=== PATIENT | female | born 1955 | race Caucasian/White ===

== ENCOUNTER → 2016-11-02 | Outpatient (REF) | payer BC ==
[~2016-11-02] MED LIST: /PANT40TA PO; /WARF25TA PO; COUM1TAB17 PO; COUM7.5T PO; FURO40TA2 PO; FUROSIMIDE PO; HUMIRA; HYDROCODONE PO; MELO7.5T6 PO; NABU750T PO; OMEP20CA3 PO; PERCOCET PO; POLYOPD OU; ROPI1TAB PO; TYLE325T5 PO; VICO5TAB16 PO
[2016-11-02 13:03] LABS: FOLATE 15.6 NG/ML (>5.4)
== END ==
LOC: M LAB REF 11:57
PROVIDERS: ATTEND Internal Medicine
DX: R73.03 Prediabetes (principal)

== ENCOUNTER 2017-07-15 07:28 | Emergency (ER) | payer BC, OTHER ==
[~2017-07-15] VITALS: Ht 160 cm; Wt 110.0 kg
[~2017-07-15 07:28] MED LIST changes: -HUMIRA; +HUMIRA SQ; -MELO7.5T6 PO; +MELO7.5T7 PO
[2017-07-15] MEDS ORDERED: NS 1,000 ML IV SCH (08:14)
[2017-07-15] MEDS ORDERED: KETOROLAC 30 MG/ML VIAL (J1885) IV ONE (08:15)
[2017-07-15 08:45] LABS: BASO % 0.6 % (0.0-1.0); EOS # 0.2 10^3/uL (0.0-0.50); EOS % 3.4 % (0.0-3.0); IMMATURE GRANULOCYTE % 0.3 % (0-0); LYMPH # 2.8 10^3/uL (1.5-4.5); LYMPH % 42.3 % (24.0-44.0); MEAN CORPUSCULAR HEMOGLOBIN 26.6 pg (27.0-33.0); MEAN CORPUSCULAR HGB CONC 31.2 g/dl (32.0-36.5); MEAN CORPUSCULAR VOLUME 85.3 fl (80.0-96.0); MONO % 14.6 % (0.0-5.0); NEUTROPHILS # 2.5 10^3/uL (1.8-7.7); NEUTROPHILS % 38.8 % (36.0-66.0); PLATELET COUNT, AUTOMATED 190 10^3/uL (150-450); RED CELL DISTRIBUTION WIDTH 16.9 % (11.5-14.5); WHITE BLOOD COUNT 6.5 10^3/uL (4.0-10.0)
[2017-07-15 09:30] LABS: ALBUMIN 3.3 GM/DL (3.2-5.2); ALBUMIN/GLOBULIN RATIO 0.79 (1.00-1.93); ALKALINE PHOSPHATASE 178 U/L (45-117); ALT/SGPT 205 U/L (12-78); ANION GAP 7 MEQ/L (8-16); AST/SGOT 120 U/L (15-37); BILIRUBIN,DIRECT 0.2 MG/DL (0.0-0.2); BILIRUBIN,TOTAL 0.6 MG/DL (0.2-1.0); BLOOD UREA NITROGEN 12 MG/DL (7-18); CALCIUM LEVEL 8.9 MG/DL (8.8-10.2); CARBON DIOXIDE LEVEL 29 MEQ/L (21-32); CHLORIDE LEVEL 106 MEQ/L (98-107); CREATININE FOR GFR 0.69 MG/DL (0.55-1.02); GLOMERULAR FILTRATION RATE > 60.0 (>45); GLUCOSE, FASTING 107 MG/DL (80-110); POTASSIUM SERUM 3.7 MEQ/L (3.5-5.1); SODIUM LEVEL 142 MEQ/L (136-145); TOTAL PROTEIN 7.5 GM/DL (6.4-8.2)
--- NOTE | 2017-07-15 09:34 | REP ---
ABDOMINAL SERIES: Supine and erect views of the abdomen demonstrate no free air and no evidence for bowel obstruction. No dilated small bowel loops are seen. There are phleboliths in the pelvis. There are degenerative changes of the spine. An accompanying view of the chest demonstrates no acute infiltrate. Heart does not appear to be significantly enlarged. There is mild calcification of the thoracic aorta. IMPRESSION: Negative abdominal series. Signed by Dioni Monroy MD 07/18/2017 09:45 A
--- NOTE | 2017-07-15 12:25 | REP ---
RIGHT UPPER QUADRANT ULTRASOUND: Real-time sonographic evaluation of the right upper quadrant performed. Gallstones are seen in the gallbladder. There is a rounded hypoechoic area slightly greater than 4 cm in diameter which may represent tumofactive sludge versus an intraluminal mass. Otherwise there is no gallbladder wall thickening. There is no free fluid. There is no intrahepatic or extrahepatic biliary dilatation, common bile duct measuring 5 mm in diameter. Liver and pancreas demonstrate no gross mass. Pancreas is not optimally seen due to overlying bowel gas. Right kidney demonstrates no hydronephrosis or nephrolithiasis with normal size at 10.7 cm in length. The study is limited due to patient body habitus. IMPRESSION: Gallstones in the gallbladder. There also appear to be tumofactive sludge versus intraluminal mass within the gallbladder. No biliary dilatation or free fluid. Signed by Dioni Monroy MD 07/18/2017 09:49 A
--- NOTE | 2017-07-15 13:13 | REP ---
CT ABDOMEN AND PELVIS WITHOUT CONTRAST: CT abdomen and pelvis performed without oral or IV contrast. Sagittal and coronal reconstruction images are performed. The visualized lung bases demonstrate no infiltrate. The liver is grossly unremarkable. The gallbladder is moderately distended and contains gallstones. There appears to be mild surrounding edema suggesting cholecystitis. Spleen, adrenals, pancreas and kidneys appear grossly unremarkable. No renal or ureteral calculus is seen and there is no hydroureteronephrosis. There is no abdominal aortic aneurysm. There is no bowel wall thickening. There is no appendicitis. There is no free air or free fluid. There is no pelvic mass. IMPRESSION: Moderately distended gallbladder containing stones and mild surrounding edema suggesting cholecystitis. No other acute abnormality. Signed by Dioni Monroy MD 07/18/2017 09:50 A
[2017-07-15 13:41] VITALS: BP 150/70
[2017-07-15] MEDS ORDERED: NORCOTAB PO (13:44)
[2017-07-16] MEDS ORDERED: NORC1TAB4 PO (05:22)
[2017-07-16] MEDS ORDERED: FURO40TA2 PO (05:23)
[2017-07-16] MEDS ORDERED: HUMI40KI SC (05:27)
[2017-07-16] MEDS ORDERED: ROPI0.5T PO (05:27)
== END 2017-07-15 14:03 | disposition home or self-care (01) ==
LOC: M ED 07:28
DX: K80.51 Calculus of bile duct without cholangitis or cholecystitis with obstruction (principal); J45.909 Unspecified asthma, uncomplicated; Z98.84 Bariatric surgery status; Z79.899 Other long term (current) drug therapy; Z88.2 Allergy status to sulfonamides; Z88.8 Allergy status to other drugs, medicaments and biological substances; Z88.1 Allergy status to other antibiotic agents
CPT/HCPCS: 74022; 74176; 76705; 80048; 80076; 81001; 83690; 85025; 93041; 96374; 99284; J1885

== ENCOUNTER 2017-07-15 23:42 | Inpatient (IN) | payer OTHER ==
[~2017-07-15] VITALS: Ht 160 cm; Wt 107.7 kg
[~2017-07-15 23:42] MED LIST changes: +NORCOTAB PO
[2017-07-16] VITALS (9 sets, daily range): BP systolic 100–138; BP diastolic 61–92
[2017-07-16] MEDS ORDERED: NS 500 ML IV ONE (05:15)
[2017-07-16] MEDS ORDERED: MORPHINE 4 MG/ML 1ML SYRINGE IV ONE (05:15)
[2017-07-16] MEDS ORDERED: NORC1TAB4 PO (05:22)
[2017-07-16] MEDS ORDERED: FURO40TA2 PO (05:23)
[2017-07-16] MEDS ORDERED: HUMI40KI SC (05:27)
[2017-07-16] MEDS ORDERED: ROPI0.5T PO (05:27)
[2017-07-16 06:05] LABS: BASO % 0.2 % (0.0-1.0); EOS % 0.1 % (0.0-3.0); IMMATURE GRANULOCYTE % 0.4 % (0-0); LYMPH # 1.7 10^3/uL (1.5-4.5); LYMPH % 13.6 % (24.0-44.0); MEAN CORPUSCULAR HEMOGLOBIN 26.9 pg (27.0-33.0); MEAN CORPUSCULAR HGB CONC 31.5 g/dl (32.0-36.5); MEAN CORPUSCULAR VOLUME 85.5 fl (80.0-96.0); MONO # 1.3 10^3/uL (0.0-0.8); MONO % 11.1 % (0.0-5.0); NEUTROPHILS % 74.6 % (36.0-66.0); PLATELET COUNT, AUTOMATED 192 10^3/uL (150-450); RED CELL DISTRIBUTION WIDTH 16.8 % (11.5-14.5); WHITE BLOOD COUNT 12.1 10^3/uL (4.0-10.0)
[2017-07-16] MEDS ORDERED: METOCLOPRAMIDE INJ 10MG/2ML VIAL (J2765) IV ONE (06:15)
[2017-07-16 06:42] LABS: ALBUMIN 3.5 GM/DL (3.2-5.2); ALBUMIN/GLOBULIN RATIO 0.95 (1.00-1.93); ALKALINE PHOSPHATASE 165 U/L (45-117); ALT/SGPT 152 U/L (12-78); ANION GAP 8 MEQ/L (8-16); AST/SGOT 58 U/L (15-37); BILIRUBIN,DIRECT 0.3 MG/DL (0.0-0.2); BILIRUBIN,TOTAL 0.7 MG/DL (0.2-1.0); BLOOD UREA NITROGEN 13 MG/DL (7-18); CALCIUM LEVEL 8.7 MG/DL (8.8-10.2); CARBON DIOXIDE LEVEL 28 MEQ/L (21-32); CHLORIDE LEVEL 103 MEQ/L (98-107); CREATININE FOR GFR 0.76 MG/DL (0.55-1.02); GLOMERULAR FILTRATION RATE > 60.0 (>45); GLUCOSE, FASTING 135 MG/DL (80-110); POTASSIUM SERUM 3.8 MEQ/L (3.5-5.1); SODIUM LEVEL 139 MEQ/L (136-145); TOTAL PROTEIN 7.2 GM/DL (6.4-8.2)
[2017-07-16] MEDS ORDERED: ZOSYN 3.375 GM VIAL (J2543) As Ordered ONE (09:11)
[2017-07-16] MEDS ORDERED: LIDOCAINE 2% INJ 100 MG/5 ML SDV (FOR ANES.) As Ordered ONE (09:13)
[2017-07-16] MEDS ORDERED: PROPOFOL 200 MG/20 ML VIAL As Ordered ONE (09:13)
[2017-07-16] MEDS ORDERED: ROCURONIUM BROMIDE 50 MG/5 ML VIAL/SYRINGE As Ordered ONE (09:13)
[2017-07-16] MEDS ORDERED: fentaNYL 250 MCG/5 ML INJECTION (J3010) As Ordered ONE (09:14)
[2017-07-16] MEDS ORDERED: MIDAZOLAM INJ 2 MG/2 ML VIAL (J2250) As Ordered ONE (09:14)
[2017-07-16] MEDS ORDERED: ACETAMINOPHEN TAB 650MG DOSE (2X325MG) PO PRN (09:30)
[2017-07-16] MEDS ORDERED: NABUMETONE 500 MG TAB PO PRN (09:30)
[2017-07-16] MEDS ORDERED: POLYVINYL ALCOHOL OPHTH SOLN 15 ML(LIQUITEARS) OU PRN (09:30)
[2017-07-16] MEDS ORDERED: MORPHINE 2 MG/ML 1ML SYRINGE IV PRN (09:30)
[2017-07-16] MEDS ORDERED: ONDANSETRON 4MG/2ML VIAL (J2405) IV PRN ×2 (09:30→11:45)
[2017-07-16] MEDS ORDERED: BUPIVACAINE/EPIN 0.25% 30 ML VIAL As Ordered ONE (09:43)
[2017-07-16] MEDS ORDERED: PHENYLephrine HCL 500 MCG/5 ML (100MCG/ML) SYRINGE (J2370) As Ordered ONE (09:52)
[2017-07-16] MEDS ORDERED: NEOSTIGMINE 10 MG/10 ML VIAL (J2710) As Ordered ONE (10:53)
[2017-07-16] MEDS ORDERED: GLYCOPYRROLATE INJ 0.2 MG/ML 2 ML VIAL As Ordered ONE (10:53)
[2017-07-16] MEDS ORDERED: ONDANSETRON 4MG/2ML VIAL (J2405) As Ordered ONE (10:53)
--- NOTE | 2017-07-16 11:26 | HPE ---
DATE OF ADMISSION: 07/16/2017 CHIEF COMPLAINT: Right upper quadrant pain. HISTORY OF PRESENT ILLNESS: The patient is a 61-year female who presents with a history of intermittent right upper quadrant pain for the past few weeks. Yesterday, she came into emergency room with the same symptoms because they have been getting progressively worse for the last 48 hours. She was diagnosed with acute cholecystitis in the emergency room (ER). However, since her white count was normal and no fevers, she was discharged home to follow up me in the office. Overnight, the pain got progressively worse, pain medications were not controlling it, so she came back into the emergency room early this morning and now her white count is rising up and she is also having fevers up to 101.7. After having the fevers, I was called to evaluate for admission. Currently, she denies any fevers or nausea or vomiting. She is having chills. Pain has been persistent in the right upper quadrant, radiating around to the right back and also going up to the right shoulder. No other changes in bowel movements. She has had previous abdominal surgeries, including bypass and laparoscopy through [facility]. No other abdominal procedures. No recent trauma and no problems with gallbladder in the past. ALLERGIES: CEPHALOSPORINS, DICLOXACILLIN, ERYTHROMYCIN, QUINOLONES, SULFA DRUGS. HOME MEDICATIONS: Please see medical record. MEDICAL HISTORY: Rheumatoid arthritis. Restless leg syndrome. PAST SURGICAL HISTORY Bilateral knee replacements. Laparoscopic gastric bypass. Laparoscopic gynecologic (WOOL [facility]PLER) procedure. SOCIAL HISTORY: Denies drug, alcohol, tobacco abuse. FAMILY HISTORY: Noncontributory. REVIEW OF SYSTEMS: Pertinent positives and negatives as stated in the history of the present illness. PHYSICAL EXAMINATION General: Alert and oriented times three. No acute stress. Vital Signs: Temperature 101.7, pulse 86, respirations 18, blood pressure 144/66, pulse oximetry 96% on room air. HEENT: Pupils equal, round, react to light and accommodation. Heart: S1, S2, regular rate and rhythm. Lungs: Clear to auscultation bilaterally. Abdomen: Soft, tender on palpation right upper quadrant extending around the right side. Extremities: No clubbing, cyanosis or edema. LABORATORY DATA: White count 12.1, hemoglobin 12.4, platelets 192, total bilirubin 0.7, direct bilirubin 0.3, AST 58, ALT 152, alkaline phosphatase 165, lipase 83. IMAGING STUDIES: CT abdomen and pelvis from yesterday shows a distended gallbladder with stones and mild surrounding edema suggesting cholecystitis. This was followed by a gallbladder ultrasound, which shows no signs of gallbladder wall thickening. No free fluid. Common bile duct measures 5 mm in diameter. Gallbladder full of gallstones. There appears to be a large amount of sludge versus intraluminal mass within the gallbladder measuring up to 4 cm in diameter as well. ASSESSMENT/PLAN: The patient is a 61-year-old female with right upper quadrant pain, persistent, unrelieved by pain medications, currently having fevers, elevated white count and pain in the right upper quadrant. Recommendation is to treat her acute cholecystitis with laparoscopic cholecystectomy. Risks and benefits of the procedure not limited to but including bleeding, infection, hernia formation, damage to surrounding structures, need for further surgery were discussed in detail with the patient. Informed consent was obtained and procedure is scheduled for first thing this morning. Postoperatively, she will be kept overnight, and we will continue to monitor her labs and fevers. Once she is afebrile for 24 hours, she will be able to be discharged home.
[2017-07-16] MEDS ORDERED: PERCOCET 5MG/325MG TAB PO PRN (11:45)
[2017-07-16] MEDS ORDERED: NS 1,000 ML IV SCH (11:45)
[2017-07-16] MEDS ORDERED: METOCLOPRAMIDE INJ 10MG/2ML VIAL (J2765) IV PRN (11:45)
[2017-07-16] MEDS: fentaNYL 100 MCG/2 ML INJECTION (J3010) IV PRN ×4 (11:45→12:07)
[2017-07-16] MEDS ORDERED: HYDROmorphone HCL 1 MG/ML SYRINGE (J1170) IV PRN (11:45)
[2017-07-16] MEDS: LR 1,000 ML IV SCH ×2 (12:00→20:37)
[2017-07-16] MEDS: PIPERACILLIN/TAZOBACTAM SOD 3.375 GM in D5W 50 ML IV SCH ×2 (14:30→20:36)
[2017-07-16] MEDS: HEPARIN SOD (PORCINE) 5000 UNITS/ML VIAL SC SCH ×2 (14:31→21:13)
[2017-07-16] MEDS: FUROSEMIDE 40 MG TAB PO SCH (14:34)
[2017-07-16] MEDS ORDERED: ERTAPENEM SODIUM 1 GM in NS MINI-BAG PLUS 50 ML IV SCH (17:00)
[2017-07-16] MEDS: NORCO, ANEXSIA 5/325MG TABLET (HYDROcodone/ACETAMINOPHEN) PO PRN (18:27)
[2017-07-16] MEDS: SENOKOT S TAB PO SCH (20:37)
[2017-07-16] MEDS: rOPINIRole 0.25 MG TAB(REQUIP) PO SCH (20:37)
[2017-07-17] MEDS: NORCO, ANEXSIA 5/325MG TABLET (HYDROcodone/ACETAMINOPHEN) PO PRN ×5 (00:27→21:38)
[2017-07-17] MEDS: LR 1,000 ML IV SCH (01:16)
[2017-07-17 02:00] VITALS: BP 123/60
[2017-07-17] MEDS: PIPERACILLIN/TAZOBACTAM SOD 3.375 GM in D5W 50 ML IV SCH ×4 (03:08→21:36)
[2017-07-17 06:00] VITALS: BP 109/66
[2017-07-17 06:05] LABS: MEAN CORPUSCULAR HEMOGLOBIN 26.7 pg (27.0-33.0); MEAN CORPUSCULAR HGB CONC 31.3 g/dl (32.0-36.5); MEAN CORPUSCULAR VOLUME 85.4 fl (80.0-96.0); PLATELET COUNT, AUTOMATED 167 10^3/uL (150-450); RED CELL DISTRIBUTION WIDTH 16.8 % (11.5-14.5); WHITE BLOOD COUNT 11.7 10^3/uL (4.0-10.0)
[2017-07-17] MEDS: HEPARIN SOD (PORCINE) 5000 UNITS/ML VIAL SC SCH ×3 (06:08→21:36)
[2017-07-17 06:30] LABS: ALKALINE PHOSPHATASE 79 U/L (45-117); ALT/SGPT 77 U/L (12-78); ANION GAP 7 MEQ/L (8-16); AST/SGOT 24 U/L (15-37); BILIRUBIN,TOTAL 0.6 MG/DL (0.2-1.0); BLOOD UREA NITROGEN 17 MG/DL (7-18); CARBON DIOXIDE LEVEL 26 MEQ/L (21-32); CHLORIDE LEVEL 102 MEQ/L (98-107); CREATININE FOR GFR 0.94 MG/DL (0.55-1.02); GLOMERULAR FILTRATION RATE > 60.0 (>45); GLUCOSE, FASTING 127 MG/DL (80-110); MAGNESIUM LEVEL 1.7 MG/DL (1.8-2.4); POTASSIUM SERUM 3.8 MEQ/L (3.5-5.1); SODIUM LEVEL 135 MEQ/L (136-145)
[2017-07-17 06:43] LABS: ALBUMIN 2.4 GM/DL (3.2-5.2); ALBUMIN/GLOBULIN RATIO 0.65 (1.00-1.93); TOTAL PROTEIN 6.1 GM/DL (6.4-8.2)
[2017-07-17] MEDS: rOPINIRole 0.25 MG TAB(REQUIP) PO SCH ×2 (09:14→21:36)
[2017-07-17] MEDS: FUROSEMIDE 40 MG TAB PO SCH (09:15)
[2017-07-17] MEDS: SENOKOT S TAB PO SCH ×2 (09:15→21:36)
--- NOTE | 2017-07-17 09:17 | RO ---
DATE OF PROCEDURE: 07/16/2017 PREOPERATIVE DIAGNOSIS: Acute cholecystitis. POSTOPERATIVE DIAGNOSIS: Acute cholecystitis. PROCEDURE: Diagnostic laparoscopy with cholecystostomy tube placement. SURGEON: Dr. Dioni Staton ALUMINUM FABRICATION SUPERVISOR: None. ANESTHESIA: General. ESTIMATED BLOOD LOSS: 15 mL. COMPLICATIONS: Poor pneumoperitoneum and enlarged gallbladder. INDICATION FOR PROCEDURE: The patient is a 61-year-old female who presents with a 3-day history of persistent right upper quadrant abdominal pain radiating around to her back. She was found to have acute cholecystitis. Recommendation was to proceed with laparoscopic, possible open cholecystectomy. Risks and benefits of procedure not limited to but including bleeding, infection, hernia formation, damage to surrounding structures and need for further surgery discussed in detail with the patient. Informed consent was obtained and procedure was planned. DESCRIPTION OF PROCEDURE: The patient was brought back to operating room #3. After sufficient sedation, the abdomen was sterilely prepped and draped. Next, a time-out was done to confirm proper patient, proper procedure. Following that, a stab incision made in left upper quadrant at Kaufman's point, Veress needle was inserted and the abdomen was insufflated to 15 mmHg. Next, a 5 mm Optiview port was used to gain access to the abdomen superior to the umbilicus in the midline. Once the abdomen was entered with a camera, Veress needle site was examined. There were no signs of any injury. Veress needle was removed. Another 11 mm port was placed subxiphoid, two 5 mm ports in the right upper quadrant. Upon doing so, the gallbladder could not even be visualized. Transverse colon was completely covering the entire right side of the liver and gallbladder. This was carefully retracted back below the level of the liver. However, the gallbladder was densely adhered to it posteriorly. Once the gallbladder was able to be visualized, the top half of it was free and it was very large, all way up to the anterior abdominal wall under 18 mm of intra-abdominal pressure. There were dense adhesions to it inferiorly and posteriorly and because of its size and inflammation surrounding it, there was no space to even attempt to remove it laparoscopically. Because of this, a #10-[place] pigtail catheter was obtained from the interventional radiology department. This was placed through an incision in the skin in the right upper quadrant. This catheter was passed through the skin into the gallbladder and the pigtail was curled up. Catheter was then sutured in place. There was a large amount of initially bilious followed by some bloody drainage. Once this catheter was in place, there was some bleeding around the outside of the gallbladder from the dissection, mainly just some oozing, no active arterial bleeding. This was suctioned off and then a layer of Briana was placed around the outside of the gallbladder. A #19-[place] Александр drain was placed along the top of the liver and around the edge of the gallbladder. This was brought out through one of the 5 mm incisions in the right upper quadrant. The abdomen was then desufflated. The skin incisions were closed with #4-0 Vicryl subcuticular sutures. The abdomen was then cleaned and dried. Steri-Strips, 4x4 and tape were applied thus ending procedure. I spoke with the patient as well as her postoperatively. Plan will be to keep her on intravenous (IV) fluids and antibiotics until her fever and white count have returned to normal, then she will be brought to the operating room (OR) for an elective laparoscopic cholecystectomy in a couple of weeks.
[2017-07-17 10:00] VITALS: BP 137/65
[2017-07-17] MEDS ORDERED: MAG SULF 1GM/100ML (MAG RUN) 1 GM in APPROPRIATE DILUENT 1 EA IV ONE (11:00)
[2017-07-17 14:00] VITALS: BP 127/59
--- NOTE | 2017-07-17 17:17 | REP ---
PA and lateral chest: Comparison is 03/05/2013. There is an incomplete inspiratory effort. There is atelectasis in the lung bases bilaterally. The upper lobes are clear. Cardiac size is normal. The wong, mediastinum, and bony thorax are unremarkable. There are dilated bowel loops in the abdomen. There are surgical drains in the abdomen on the right. Impression: Incomplete inspiratory effort. Bibasilar atelectasis. Dilated bowel loops in the abdomen. There appear to be surgical drains in the abdomen on the right. Signed by Dioni Freeman MD 07/17/2017 05:09 P
[2017-07-17 18:00] VITALS: BP 128/67
[2017-07-17 22:00] VITALS: BP 137/69
[2017-07-18 02:00] VITALS: BP 111/58
[2017-07-18] MEDS: PIPERACILLIN/TAZOBACTAM SOD 3.375 GM in D5W 50 ML IV SCH ×4 (03:28→22:04)
[2017-07-18] MEDS: HEPARIN SOD (PORCINE) 5000 UNITS/ML VIAL SC SCH ×3 (05:50→22:00)
[2017-07-18] MEDS: NORCO, ANEXSIA 5/325MG TABLET (HYDROcodone/ACETAMINOPHEN) PO PRN ×4 (05:51→22:07)
[2017-07-18 06:00] VITALS: BP 118/73
[2017-07-18 06:47] LABS: MEAN CORPUSCULAR HEMOGLOBIN 26.2 pg (27.0-33.0); MEAN CORPUSCULAR HGB CONC 29.7 g/dl (32.0-36.5); MEAN CORPUSCULAR VOLUME 88.4 fl (80.0-96.0); PLATELET COUNT, AUTOMATED 192 10^3/uL (150-450); RED CELL DISTRIBUTION WIDTH 16.7 % (11.5-14.5); WHITE BLOOD COUNT 8.9 10^3/uL (4.0-10.0)
[2017-07-18 06:58] LABS: ALBUMIN 2.3 GM/DL (3.2-5.2); ALBUMIN/GLOBULIN RATIO 0.55 (1.00-1.93); ALKALINE PHOSPHATASE 78 U/L (45-117); ALT/SGPT 55 U/L (12-78); ANION GAP 7 MEQ/L (8-16); AST/SGOT 17 U/L (15-37); BILIRUBIN,TOTAL 0.5 MG/DL (0.2-1.0); BLOOD UREA NITROGEN 18 MG/DL (7-18); CALCIUM LEVEL 8.6 MG/DL (8.8-10.2); CARBON DIOXIDE LEVEL 28 MEQ/L (21-32); CHLORIDE LEVEL 102 MEQ/L (98-107); CREATININE FOR GFR 0.83 MG/DL (0.55-1.02); GLOMERULAR FILTRATION RATE > 60.0 (>45); GLUCOSE, FASTING 102 MG/DL (80-110); MAGNESIUM LEVEL 2.2 MG/DL (1.8-2.4); POTASSIUM SERUM 3.6 MEQ/L (3.5-5.1); SODIUM LEVEL 137 MEQ/L (136-145); TOTAL PROTEIN 6.5 GM/DL (6.4-8.2)
[2017-07-18] MEDS: SENOKOT S TAB PO SCH ×2 (09:52→22:05)
[2017-07-18] MEDS: FUROSEMIDE 40 MG TAB PO SCH (09:52)
[2017-07-18] MEDS: rOPINIRole 0.25 MG TAB(REQUIP) PO SCH ×2 (09:52→22:05)
[2017-07-18 10:00] VITALS: BP 134/73
[2017-07-18 14:00] VITALS: BP 131/64
[2017-07-18 22:00] VITALS: BP 121/57
[2017-07-19] MEDS: PIPERACILLIN/TAZOBACTAM SOD 3.375 GM in D5W 50 ML IV SCH ×4 (03:29→20:36)
[2017-07-19 06:00] VITALS: BP 116/61
[2017-07-19 06:04] LABS: MEAN CORPUSCULAR HEMOGLOBIN 26.4 pg (27.0-33.0); MEAN CORPUSCULAR HGB CONC 31.2 g/dl (32.0-36.5); MEAN CORPUSCULAR VOLUME 84.6 fl (80.0-96.0); PLATELET COUNT, AUTOMATED 204 10^3/uL (150-450); RED CELL DISTRIBUTION WIDTH 16.2 % (11.5-14.5); WHITE BLOOD COUNT 7.4 10^3/uL (4.0-10.0)
[2017-07-19] MEDS: HEPARIN SOD (PORCINE) 5000 UNITS/ML VIAL SC SCH ×3 (06:21→22:00)
[2017-07-19] MEDS: NORCO, ANEXSIA 5/325MG TABLET (HYDROcodone/ACETAMINOPHEN) PO PRN (06:34)
[2017-07-19 06:35] LABS: ALBUMIN 2.1 GM/DL (3.2-5.2); ALBUMIN/GLOBULIN RATIO 0.54 (1.00-1.93); ALKALINE PHOSPHATASE 64 U/L (45-117); ALT/SGPT 40 U/L (12-78); AST/SGOT 11 U/L (15-37); BILIRUBIN,TOTAL 0.5 MG/DL (0.2-1.0); BLOOD UREA NITROGEN 13 MG/DL (7-18); CALCIUM LEVEL 8.3 MG/DL (8.8-10.2); CARBON DIOXIDE LEVEL 33 MEQ/L (21-32); CHLORIDE LEVEL 98 MEQ/L (98-107); CREATININE FOR GFR 0.73 MG/DL (0.55-1.02); GLOMERULAR FILTRATION RATE > 60.0 (>45); GLUCOSE, FASTING 96 MG/DL (80-110); MAGNESIUM LEVEL 1.9 MG/DL (1.8-2.4)
[2017-07-19 06:50] LABS: ANION GAP 6 MEQ/L (8-16); SODIUM LEVEL 137 MEQ/L (136-145)
[2017-07-19 07:01] LABS: POTASSIUM SERUM 2.8 MEQ/L (3.5-5.1)
[2017-07-19 10:15] VITALS: O2SAT 98
[2017-07-19] MEDS: rOPINIRole 0.25 MG TAB(REQUIP) PO SCH ×2 (10:43→20:35)
[2017-07-19] MEDS: POTASSIUM CHLORIDE 10 MEQ SR TABLET PO SCH ×2 (10:43→20:36)
[2017-07-19] MEDS: FUROSEMIDE 40 MG TAB PO SCH (10:44)
[2017-07-19] MEDS: SENOKOT S TAB PO SCH ×2 (10:44→20:36)
[2017-07-19] MEDS: KETOROLAC 30 MG/ML VIAL (J1885) IV PRN ×2 (10:45→18:55)
--- NOTE | 2017-07-19 13:07 | REP ---
HIDA SCAN: Following the intravenous administration of 6.4 mCi of technetium-99m mebrofenin, multiple images of the right upper quadrant are performed for 1 hour. The gallbladder is visualized at about 30 minutes post injection. There is biliary to bowel transit at about 20 to 25 minutes post injection. There is no scintigraphic evidence of significant biliary obstruction. There is no scintigraphic evidence of cholecystitis. Signed by Dioni Monroy MD 07/20/2017 04:27 P
[2017-07-19] MEDS ORDERED: ISOVUE-370 76% 100ML VIAL (Q9967) As Ordered ONE (13:37)
[2017-07-19 14:00] VITALS: BP 141/63
--- NOTE | 2017-07-19 14:38 | CR ---
DATE OF CONSULTATION: 07/19/2017 REQUESTING PROVIDER: Dr. Dioni Staton REASON FOR CONSULTATION: Hypoxia. HISTORY OF PRESENT ILLNESS: This is a 61-year-old female patient with underlying medical history of gastroesophageal reflux disease (GERD), rheumatoid arthritis, restless leg syndrome, admitted under general surgery with right upper quadrant pain with a diagnosis of acute cholecystitis, attempted laparoscopic cholecystectomy, which was not possible to be done. Subsequently, cholecystectomy tube was placed. The patient currently is admitted to the medical/surgical floor with a history of sleep apnea not on CPAP, history of bariatric surgery. Denies any chest pain, pressure or discomfort. Reported orthopnea, dyspnea on exertion with hypoxia with ambulation, not hypoxic on room air. Oxygen improved with incentive spirometry. Chronic bilateral lower extremity edema. Denies a history of congestive heart failure (CHF). Denies a history of coronary artery disease. Denies any nausea or vomiting. Currently comfortable. ALLERGIES: CIPRO, CEPHALOSPORIN, DICLOXACILLIN, ERYTHROMYCIN, QUINOLONES, SULFA DRUGS AND CROSS REACTORS. PAST MEDICAL HISTORY: 1. GERD. 2. Morbid obesity. 3. Rheumatoid arthritis. 4. Obstructive sleep apnea. 5. Restless legs. PAST SURGICAL HISTORY: 1. Cholecystectomy tube during this admission. 2. Right total knee arthroplasty in February 2017. 3. Gastric bypass in 2005. 4. Left total knee arthroplasty in 2014. 5. Colonoscopy. SOCIAL HISTORY: Denies alcohol, smoking or illicit drug use. FAMILY HISTORY: Father with a history of colon cancer and heart problems. REVIEW OF SYSTEMS: Reported poor oral intake and abdominal pain, dyspnea on exertion, orthopnea, chronic lower extremity edema. All other review of systems are negative. HOME MEDICATIONS: - [place] 5/325 one tablet by mouth every 6 hours as needed - artificial tears four times a day as needed - Lasix 40 mg by mouth daily as needed - Humira subcutaneously 40 mg every 2 weeks - nabumetone 750 mg by mouth daily as needed - Requip 0.5 mg by mouth twice a day PHYSICAL EXAMINATION: VITAL SIGNS: Temperature is 97.5, pulse 84, respirations 18, blood pressure 131/64, pulse oximetry 98% on room air. GENERAL: The patient is obese, alert, oriented times three in no acute distress. HEENT: Normocephalic, atraumatic. PULMONARY: Bilaterally clear to auscultation. Distant breath sounds. CARDIAC: Regular rate and rhythm. Normal S1, S2. ABDOMEN: Drain in place with cholecystectomy tube draining bile. Obese. Positive bowel sounds. EXTREMITIES: Trace edema in bilateral lower extremities. LABORATORY DATA: WBC 7.4, hemoglobin and hematocrit 9.4/30.1, platelets 204. Chemistry: Sodium 137, potassium 3.8, chloride 98, bicarbonate 33, BUN 13, creatinine 0.73. ASSESSMENT AND PLAN: This is a 61-year-old female patient with underlying medical history of restless legs, rheumatoid arthritis, obstructive sleep apnea, morbid obesity admitted under general surgery with acute cholecystitis. Medicine consulted for hypoxia. 1. Acute cholecystitis. Management is as per general surgery. Diet is as per general surgery. 2. Hypoxia with dyspnea on exertion and also orthopnea. Possible etiology includes atelectasis versus obstructive sleep apnea versus congestive heart failure (CHF) versus pulmonary embolism. We will do CT angiogram to rule out pulmonary embolism. Incentive spirometry. EZ Pap. The patient is actually being diuresed. Oxygen saturation has improved. Physical therapy (PT). We will get echocardiogram and further assess. The patient's hypoxia has improved with incentive spirometry. 3. Hypokalemia secondary to diuretics. Supplement potassium and magnesium. Continue to follow. 4. Obstructive sleep apnea. The patient has stopped using CPAP ever since she had gastric bypass. Needs further outpatient followup given the patient has not had a confirmatory sleep study to see if the patient does not need CPAP. 5. Obesity complicating care. 6. Restless leg syndrome. Continue current medications. 7. Rheumatoid arthritis. Continue current medications. Outpatient followup. 8. Deep vein thrombosis (DVT) prophylaxis. Heparin subcutaneous. DISPOSITION PLANNING: Pending further workup. Further disposition as per general surgery. Patient is currently clinically improved and is saturating well on room air. Will need further physical therapy (PT).
--- NOTE | 2017-07-19 14:59 | REP ---
CT of the chest with IV contrast, CT pulmonary angiography: There are no emboli in the pulmonary trunk or central pulmonary arteries. There are no emboli in the pulmonary lobe or segment branches. There are infiltrates in the lower lobes bilaterally. There is an infiltrate in the lingula. There is diffuse ground-glass density throughout the right upper lobe and patchy ground-glass densities in the left upper lobe. No pleural effusions are identified. No mediastinal or hilar adenopathy. No axillary adenopathy. The thoracic aorta is unremarkable. Cardiac size is normal. No pericardial effusion. There is a surgical drain in the abdominal right upper quadrant likely a cholecystostomy. Impression: There are subsegmental bilateral lower lobe infiltrates and a subsegmental infiltrate in the lingula. There are ground-glass densities in the upper lobes bilaterally compatible with infiltrates. No pleural effusions. No mediastinal adenopathy. No pulmonary emboli. Surgical drain in the abdominal right upper quadrant. Signed by Dioni Freeman MD 07/19/2017 02:51 P
[2017-07-19 15:29] LABS: ANION GAP 6 MEQ/L (8-16); BLOOD UREA NITROGEN 11 MG/DL (7-18); CALCIUM LEVEL 7.9 MG/DL (8.8-10.2); CARBON DIOXIDE LEVEL 34 MEQ/L (21-32); CHLORIDE LEVEL 99 MEQ/L (98-107); CREATININE FOR GFR 0.77 MG/DL (0.55-1.02); GLOMERULAR FILTRATION RATE > 60.0 (>45); GLUCOSE, FASTING 132 MG/DL (80-110); POTASSIUM SERUM 2.8 MEQ/L (3.5-5.1); SODIUM LEVEL 139 MEQ/L (136-145)
[2017-07-19] MEDS ORDERED: POTASSIUM CHLORIDE 10 MEQ SR TABLET PO ONE (16:30)
[2017-07-19 22:00] VITALS: BP 99/49
[2017-07-20] MEDS: PIPERACILLIN/TAZOBACTAM SOD 3.375 GM in D5W 50 ML IV SCH ×2 (02:21→10:10)
[2017-07-20] MEDS: NORCO, ANEXSIA 5/325MG TABLET (HYDROcodone/ACETAMINOPHEN) PO PRN (02:22)
[2017-07-20] MEDS: HEPARIN SOD (PORCINE) 5000 UNITS/ML VIAL SC SCH ×2 (05:46→14:00)
[2017-07-20 05:55] LABS: MEAN CORPUSCULAR HEMOGLOBIN 26.5 pg (27.0-33.0); MEAN CORPUSCULAR HGB CONC 31.3 g/dl (32.0-36.5); MEAN CORPUSCULAR VOLUME 84.7 fl (80.0-96.0); PLATELET COUNT, AUTOMATED 232 10^3/uL (150-450); RED CELL DISTRIBUTION WIDTH 16.3 % (11.5-14.5); WHITE BLOOD COUNT 6.1 10^3/uL (4.0-10.0)
[2017-07-20 06:00] VITALS: BP 96/48
[2017-07-20 06:13] LABS: ALKALINE PHOSPHATASE 60 U/L (45-117); ALT/SGPT 29 U/L (12-78); ANION GAP 6 MEQ/L (8-16); AST/SGOT 11 U/L (15-37); BILIRUBIN,TOTAL 0.4 MG/DL (0.2-1.0); BLOOD UREA NITROGEN 11 MG/DL (7-18); CALCIUM LEVEL 8.3 MG/DL (8.8-10.2); CARBON DIOXIDE LEVEL 32 MEQ/L (21-32); CHLORIDE LEVEL 103 MEQ/L (98-107); CREATININE FOR GFR 0.75 MG/DL (0.55-1.02); GLOMERULAR FILTRATION RATE > 60.0 (>45); GLUCOSE, FASTING 132 MG/DL (80-110); MAGNESIUM LEVEL 2.1 MG/DL (1.8-2.4); POTASSIUM SERUM 3.2 MEQ/L (3.5-5.1); SODIUM LEVEL 141 MEQ/L (136-145)
[2017-07-20] MEDS ORDERED: POTASSIUM CHLORIDE 10 MEQ SR TABLET PO ONE (07:30)
[2017-07-20] MEDS: SENOKOT S TAB PO SCH (09:00)
[2017-07-20] MEDS: rOPINIRole 0.25 MG TAB(REQUIP) PO SCH (10:10)
[2017-07-20] MEDS: KETOROLAC 30 MG/ML VIAL (J1885) IV PRN (10:11)
[2017-07-20] MEDS ORDERED: SENN1TAB2 PO (10:22)
[2017-07-20] MEDS ORDERED: AUGM875T28 PO (10:22)
[2017-07-20] MEDS ORDERED: NORCOTAB PO (10:22)
[2017-07-20] MEDS ORDERED: AUGMENTIN 875 MG TAB PO ONE (10:30)
[2017-07-20] MEDS: FUROSEMIDE 40 MG TAB PO SCH (10:35)
[2017-07-20] MEDS: POTASSIUM CHLORIDE 10 MEQ SR TABLET PO SCH (12:23)
[2017-07-20 14:00] VITALS: BP 125/72
--- NOTE | 2017-07-20 15:52 | IPN ---
DATE: 07/20/2017 The patient is seen and examined. No acute events overnight. Denies any chest pain, pressure or discomfort, shortness of breath. Able to ambulate. Hypoxia has improved significantly. VITAL SIGNS: Temperature 97.7, pulse 82, respirations 17, blood pressure 96/48, pulse oximetry 97% on room air. LABORATORY DATA: WBC 6.1, hemoglobin and hematocrit 9/28.8, platelets 232. Chemistry: Sodium 141, potassium 3.2, chloride 103, bicarbonate 32, BUN 11, creatinine 0.75. PHYSICAL EXAMINATION: GENERAL: The patient is alert and oriented times three. Obese. In no acute distress. HEENT: Normocephalic, atraumatic. PULMONARY: Bilaterally clear to auscultation. Distant breath sounds. CARDIAC: Regular rate and rhythm. Normal S1, S2. ABDOMEN: Soft, nontender. Positive bowel sounds. Drainage and cholecystectomy tube draining in place. Obese. EXTREMITIES: Trace edema in bilateral lower extremities. ASSESSMENT AND PLAN: This is a 61-year-old female patient with underlying medical history of restless leg, rheumatoid arthritis, obstructive sleep apnea, morbid obesity, admitted under general surgery for acute cholecystitis. 1. Acute cholecystitis. The patient had a cholecystotomy tube in place. Management as per general surgery. Diet as per general surgery. The patient was on Zosyn. 2. Hypoxia with dyspnea on exertion and orthopnea, possible etiology includes atelectasis, obstructive sleep apnea, congestive heart failure (CHF), pulmonary embolism. CT angio negative for pulmonary embolism. The patient does not appear to be fluid overloaded on CT scan as well. Incentive spirometry. EZ-Pap. The patient was actually being diuresed. Oxygen saturation has improved significantly with incentive spirometry, physical therapy (PT). The patient does not qualify for oxygen at home. Needs to get sleep studies and echocardiogram as an outpatient. 3. Hypokalemia secondary to diuretics. Supplemented. Monitor as an outpatient. 4. Obstructive sleep apnea. The patient had stopped using CPAP ever since gastric bypass. Needs further studies to make sure that the patient does not need CPAP anymore. 5. Obesity complicating care. 6. Restless legs. Continue current medications. 7. Rheumatoid arthritis. Continue current medications, outpatient followup. 8. Deep vein thrombosis (DVT) prophylaxis. The patient is on heparin subcutaneous as an inpatient. DISPOSITION: Likely discharge later today. The patient can get echo and sleep study as an outpatient. Does not qualify for oxygen at this point. Currently improved. Further management as per surgery.
--- NOTE | 2017-07-21 09:44 | DSES ---
DATE OF ADMISSION: 07/16/2017 DATE OF DISCHARGE: 07/20/2017 ADMISSION DIAGNOSIS: Acute cholecystitis. DISCHARGE DIAGNOSIS: Acute cholecystitis. HOSPITAL COURSE: Patient is a 61-year-old female presents with severe acute cholecystitis who failed outpatient management due to having fevers and increasing pain. On the morning of 07/16/2017, she underwent a diagnostic laparoscopy with cholecystostomy tube placement due to the large size of her gallbladder. The goal was to remove it surgically. However, due to the large size and severe inflammation and swelling around it, the plan was to place a tube in for drainage instead. By the 07/17/2017, postoperative day #1, her pain was slightly improved. She was tolerating diet, ambulating in the halls. Her oxygen saturations were low both at rest and with movement. She was requiring up to 6 liters of oxygen through nasal cannula. We encouraged incentive spirometer and movement. Drain in the gallbladder continued to have bile from it and the drain outside of the gallbladder was normal. Chest x-ray was done to check for any signs of pneumonia. It just showed incomplete inspiratory effort as well as atelectasis. She was kept for another couple of days due to the poor oxygen saturations. They continued to improve slowly. Drain continued to be bilious with volumes around 500 a day. The Александр drain outside of the gallbladder continued to be nonbilious with very minimal output. Her labs continued to improve. Liver enzymes stayed normal from 24 hours after surgery on. The only thing keeping her in the hospital has been her oxygen saturations. Consulted internal medicine on 07/19/2017 to get some second opinions on what we can do to improve her oxygenation. They just continue to encourage her use incentive spirometer. Checked a CT chest to make sure she did not have pulmonary embolism (PE), which she did not, but did not change any of her medications. This morning, 07/20/2017, she was up ambulating in the halls. She desaturated slightly with ambulation but is doing well at rest. Plan is to discharge home today with an oxygen tank to use for ambulation only. She can followup with her primary care doctor in a week or two to check her oxygen levels and see if she will continue to need that or not. From my standpoint, she will keep the cholecystostomy tube in place. I will see her in our office in a week or two, and we will leave the drain in place and schedule her for elective outpatient cholecystectomy. She will be discharged home with antibiotics, pain medications and stool softener, and she has our number to call if she has any problems or questions.
== END 2017-07-20 14:57 | disposition home or self-care (01) ==
LOC: M ED 23:42 → M SDC 07-16 07:30 → M MSPAV 07-16 12:53 → M SDC 07-19 08:29 → M MSPAV 07-19 08:29 → M SDC 07-19 12:26 → M MSPAV 07-19 12:26
PROVIDERS: ADMIT Surgery; ATTEND Surgery
PROC: 0F9440Z Drainage of Gallbladder with Drainage Device, Percutaneous Endoscopic Approach (ICD-10-PCS; principal; 2017-07-16 09:30)
DX: K81.0 Acute cholecystitis (principal); A42.89 Other forms of actinomycosis; M06.9 Rheumatoid arthritis, unspecified; R09.02 Hypoxemia; E87.6 Hypokalemia; K21.9 Gastro-esophageal reflux disease without esophagitis; G25.81 Restless legs syndrome; Z88.1 Allergy status to other antibiotic agents; Z88.2 Allergy status to sulfonamides; Z96.653 Presence of artificial knee joint, bilateral; Z98.84 Bariatric surgery status; Z79.899 Other long term (current) drug therapy; B96.20 Unspecified Escherichia coli [E. coli] as the cause of diseases classified elsewhere

== ENCOUNTER → 2017-08-09 | Outpatient (CLI) | payer OTHER ==
[~2017-08-09] MED LIST changes: +AUGM875T28 PO; +HUMI40KI SC; +NORC1TAB4 PO; +ROPI0.5T PO; +SENN1TAB2 PO
--- NOTE | 2017-08-11 00:35 | ECGEPIP ---
Stationary ECG Study [facility] Test Date: 2017-08-09 Pat Name: SHELLIE VÁSQUEZ Department: Room: - Gender: F Regulatory Law Specialist: : [id number] Requested By: Dawit Amos Order Number: [id number] Reading MD: José Miguel Goldstein Measurements Intervals [place] Rate: 79 P: 23 [place]: 146 QRS: -11 QRSD: 100 T: 9 QT: 364 QTc: 417 Interpretive Statements SINUS RHYTHM VOLTAGE CRITERIA FOR LVH Compared to the last 2 tracings, no significant changes Electronically Signed On 08-11-2017 0:34:53 EST by José Miguel Goldstein
== END ==
LOC: M EKG 10:51
PROVIDERS: ATTEND Internal Medicine
DX: Z01.818 Encounter for other preprocedural examination (principal)

== ENCOUNTER 2017-08-17 09:24 | Day surgery (SDC) | payer OTHER ==
[~2017-08-17] VITALS: Ht 160 cm; Wt 106.1 kg
[2017-08-17] MEDS ORDERED: PIPERACILLIN/TAZOBACTAM SOD 3.375 GM in APPROPRIATE DILUENT 1 EA IV ONE (10:00)
[2017-08-17] MEDS ORDERED: MIDAZOLAM INJ 2 MG/2 ML VIAL (J2250) As Ordered ONE (10:29)
[2017-08-17] MEDS ORDERED: fentaNYL 100 MCG/2 ML INJECTION (J3010) As Ordered ONE (10:29)
[2017-08-17] MEDS ORDERED: BUPIVACAINE/EPIN 0.25% 30 ML VIAL As Ordered ONE (10:40)
[2017-08-17] MEDS ORDERED: dexameTHASONE 4 MG/ML 1ML VIAL (J1100) As Ordered ONE (10:42)
[2017-08-17] MEDS ORDERED: KETOROLAC 60 MG/2 ML VIAL (J1885) As Ordered ONE ×2 (10:42→13:06)
[2017-08-17] MEDS ORDERED: ROCURONIUM BROMIDE 50 MG/5 ML VIAL/SYRINGE As Ordered ONE (10:42)
[2017-08-17] MEDS ORDERED: ONDANSETRON 4MG/2ML VIAL (J2405) As Ordered ONE (10:42)
[2017-08-17] MEDS ORDERED: LIDOCAINE 2% INJ 100 MG/5 ML SDV (FOR ANES.) As Ordered ONE (10:42)
[2017-08-17] MEDS ORDERED: HYDROmorphone HCL 2 MG/ML 1ML VIAL (J1170) As Ordered ONE (11:30)
[2017-08-17] MEDS ORDERED: LABETALOL HCL 100 MG/20 ML VIAL As Ordered ONE (12:09)
[2017-08-17] MEDS ORDERED: GLYCOPYRROLATE INJ 0.2 MG/ML 2 ML VIAL As Ordered ONE (13:06)
[2017-08-17] MEDS ORDERED: NEOSTIGMINE 10 MG/10 ML VIAL (J2710) As Ordered ONE (13:06)
[2017-08-17] MEDS ORDERED: NORCO, ANEXSIA 5/325MG TABLET (HYDROcodone/ACETAMINOPHEN) PO PRN (13:45)
[2017-08-17] MEDS ORDERED: ONDANSETRON 4MG/2ML VIAL (J2405) IV PRN (13:45)
[2017-08-17] MEDS ORDERED: fentaNYL 100 MCG/2 ML INJECTION (J3010) IV PRN (13:45)
[2017-08-17] MEDS ORDERED: LR 1,000 ML IV SCH (13:45)
[2017-08-17] MEDS ORDERED: METOCLOPRAMIDE INJ 10MG/2ML VIAL (J2765) IV PRN (15:45)
[2017-08-17 17:50] VITALS: BP 131/62
--- NOTE | 2017-08-18 14:49 | RO ---
DATE OF PROCEDURE: 08/17/2017 PREOPERATIVE DIAGNOSIS: Acute cholecystitis. POSTOPERATIVE DIAGNOSIS: Acute cholecystitis. PROCEDURE: Laparoscopic cholecystectomy. SURGEON: Dr. Staton RN PEDIATRIC: Dr. Robertson ANESTHESIA: General. ESTIMATED BLOOD LOSS: 20. COMPLICATIONS: None. INDICATIONS FOR PROCEDURE: The patient is a 61-year-old female who previously had an acute cholecystitis and was treated with cholecystostomy drain. She has had this in for about 3-1/2 weeks allowing it to rest and she is here today for laparoscopic cholecystectomy. Risks and benefits of the procedure not limited but including bleeding, infection, hernia formation, damage to surrounding structures, possible need for open surgery discussed in detail with the patient informed was obtained procedure was planned. PROCEDURE: The patient brought to operating room seven. After sufficient sedation abdomen was sterilely prepped and draped. Next time-out was done to confirm proper patient and proper procedure. Following that stab incision made in left lower quadrant. Following this Veress needle inserted and the abdomen was the insufflated to 50 mmHg. Next a 5 mm supraumbilical midline incision was made and the 5 mm OptiVu port was used to gain access to the abdomen. Once the abdomen centered Veress needle site was examined, there is no signs of any injury. Veress needle was then removed, 11 mm port placed subxiphoid two 5 mm ports right upper quadrant. Upon entering there was a lot of adhesions and scarring in the right upper quadrant. The transverse colon was completely covering the gallbladder and was wrapped around the cholecystostomy tube all way up over top the liver and was densely adhered over the midline above the gallbladder at the falciform. There was extensive lysis of adhesions to carefully mobilized the transverse colon and get it away from the gallbladder. Once this was completed the cholecystostomy tube was cut and removed from the body, gallbladder was elevated up in the air. Cystic duct and cystic artery were then easily identified. There is very little scarring around those they are both the doubly clipped and cut. Gallbladder was then removed from gallbladder fossa using electrocautery and was then brought out through the 10 mm port site in a 5 mm EndoCatch bag. Abdomen was then examined one last time, some Briana was placed along the liver bed. A 19-Swedish Александр drain was then placed in the right upper quadrant. Abdomen was then desufflated. 2-0 silk suture was used to tie the drain in place. Skin incisions were closed 4-0 Vicryl subcuticular sutures. Abdomen was then cleaned and dried. Steri-Strips 4x4 and tape were applied thus ending procedure.
== END 2017-08-17 18:00 | disposition home or self-care (01) ==
LOC: M SDC 09:24
PROVIDERS: ATTEND Surgery
DX: K81.0 Acute cholecystitis (principal); I87.2 Venous insufficiency (chronic) (peripheral); E66.01 Morbid (severe) obesity due to excess calories; M06.9 Rheumatoid arthritis, unspecified; G25.81 Restless legs syndrome; Z88.2 Allergy status to sulfonamides; Z88.1 Allergy status to other antibiotic agents; Z79.899 Other long term (current) drug therapy; Z98.84 Bariatric surgery status; G47.33 Obstructive sleep apnea (adult) (pediatric)
CPT/HCPCS: 47562; 88304; A6024; J1100; J1170; J1885; J2250; J2405; J2710; J2765; J3010

== ENCOUNTER → 2017-11-08 | Outpatient (REF) | payer OTHER ==
[2017-11-08 13:41] LABS: IRON (FE) 44 UG/DL (50-170); PERCENT SATURATION 8.3 % (13.2-45.0); TOTAL IRON BINDING CAPACITY 530 UG/DL (250-450)
[2017-11-08 13:46] LABS: VITAMIN B12 LEVEL 583 PG/ML
[2017-11-08 13:47] LABS: FOLATE 8.2 NG/ML
== END ==
LOC: M LAB REF 13:13
DX: Z98.84 Bariatric surgery status (principal)
CPT/HCPCS: 82746

== ENCOUNTER 2018-01-04 19:26 | Emergency (ER) | payer OTHER ==
[2018-01-04 22:51] LABS: BASO % 0.3 % (0.0-1.0); EOS # 0.1 10^3/uL (0.0-0.50); EOS % 0.5 % (0.0-3.0); HEMATOCRIT 38.1 % (36.0-47.0); HEMOGLOBIN 11.7 g/dl (12.0-15.5); IMMATURE GRANULOCYTE % 0.4 % (0-3.0); LYMPH # 1.7 10^3/uL (1.5-4.5); LYMPH % 15.8 % (24.0-44.0); MEAN CORPUSCULAR HGB CONC 30.7 g/dl (32.0-36.5); MEAN CORPUSCULAR VOLUME 81.4 fl (80.0-96.0); MONO % 9.6 % (0.0-5.0); NEUTROPHILS # 7.8 10^3/uL (1.8-7.7); NEUTROPHILS % 73.4 % (36.0-66.0); PLATELET COUNT, AUTOMATED 277 10^3/uL (150-450); RED BLOOD COUNT 4.68 10^6/uL (4.00-5.40); RED CELL DISTRIBUTION WIDTH 18.2 % (11.5-14.5); WHITE BLOOD COUNT 10.7 10^3/uL (4.0-10.0)
[2018-01-04] MEDS: ONDANSETRON 4MG/2ML VIAL (J2405) IV (22:52)
[2018-01-04] MEDS: KETOROLAC 30 MG/ML VIAL (J1885) IV (22:52)
[2018-01-04 22:54] LABS: KETONE, URINE AUTO RFX NEGATIVE (NEGATIVE); MUCUS, URINE RFX SMALL (NEGATIVE); NITRITE, URINE AUTO RFX NEGATIVE (NEGATIVE); RBC, URINE AUTO RFX 3 /HPF (0-3); SQUAM EPITHELIAL CELL UR AURFX 1 /HPF (0-6); WBC, URINE AUTO RFX 4 /HPF (0-3)
[2018-01-04 23:01] LABS: INR 0.89; PROTHROMBIN TIME 12.1 SECONDS (12.4-14.5)
[2018-01-04 23:05] LABS: LEUKOCYTE ESTERASE UR AUTO RFX TRACE (NEGATIVE)
[2018-01-04 23:18] LABS: ALBUMIN 3.4 GM/DL (3.2-5.2); ALBUMIN/GLOBULIN RATIO 0.83 (1.00-1.93); ALKALINE PHOSPHATASE 420 U/L (45-117); ALT/SGPT 224 U/L (12-78); AMYLASE 42 U/L (25-115); ANION GAP 7 MEQ/L (8-16); AST/SGOT 325 U/L (7-37); BILIRUBIN,DIRECT 1.4 MG/DL (0.0-0.2); BILIRUBIN,TOTAL 1.6 MG/DL (0.2-1.0); BLOOD UREA NITROGEN 15 MG/DL (7-18); CALCIUM LEVEL 8.7 MG/DL (8.8-10.2); CARBON DIOXIDE LEVEL 28 MEQ/L (21-32); CHLORIDE LEVEL 108 MEQ/L (98-107); CREATININE FOR GFR 0.78 MG/DL (0.55-1.30); GLOMERULAR FILTRATION RATE > 60.0 (>45); GLUCOSE, FASTING 129 MG/DL (70-100); LIPASE 126 U/L (73-393); POTASSIUM SERUM 4.1 MEQ/L (3.5-5.1); SODIUM LEVEL 143 MEQ/L (136-145); TOTAL PROTEIN 7.5 GM/DL (6.4-8.2)
[2018-01-05] MEDS: OXYCODONE/APAP 5MG/325MG(BULK FOR ED) 1 TABLET PO (01:04)
[2018-01-06 09:04] LABS: HEPATITIS B SURFACE ANTIGEN NEGATIVE (NEGATIVE)
[2018-01-06 09:31] LABS: HEPATITIS C VIRUS ABY INDEX 0.1 INDEX (<0.8)
[2018-01-06 09:32] LABS: HEPATITIS B CORE ANTIBODY IGM NEGATIVE (NEGATIVE)
[2018-01-06 09:34] LABS: HEPATITIS A ANTIBODY IGM NEGATIVE (NEGATIVE)
== END 2018-01-05 01:14 | disposition home or self-care (01) ==
LOC: M ED 01-05 01:14
DX: K75.9 Inflammatory liver disease, unspecified (principal); Z79.899 Other long term (current) drug therapy; Z88.0 Allergy status to penicillin; Z88.1 Allergy status to other antibiotic agents; Z88.5 Allergy status to narcotic agent; Z88.2 Allergy status to sulfonamides
CPT/HCPCS: J2405

== ENCOUNTER → 2018-01-10 | Outpatient (REF) | payer OTHER ==
[2018-01-10 12:40] LABS: ALBUMIN 3.2 GM/DL (3.2-5.2); ALBUMIN/GLOBULIN RATIO 0.78 (1.00-1.93); ALKALINE PHOSPHATASE 467 U/L (45-117); ALT/SGPT 203 U/L (12-78); AST/SGOT 178 U/L (7-37); BILIRUBIN,DIRECT 1.3 MG/DL (0.0-0.2); BILIRUBIN,TOTAL 1.7 MG/DL (0.2-1.0); TOTAL PROTEIN 7.3 GM/DL (6.4-8.2)
== END ==
LOC: M LABDRAW1 10:31
DX: E80.6 Other disorders of bilirubin metabolism (principal)

== ENCOUNTER → 2018-01-25 | Outpatient (CLI) | payer OTHER | LOC: M RAD 07:08 | DX: E80.6 Other disorders of bilirubin metabolism (principal) ==

== ENCOUNTER → 2018-02-08 | Outpatient (REF) | payer OTHER ==
[2018-02-08 18:34] LABS: IRON (FE) 24 UG/DL (50-170); PERCENT SATURATION 4.7 % (13.2-45.0); TOTAL IRON BINDING CAPACITY 507 UG/DL (250-450)
== END ==
LOC: M LAB REF 17:38
DX: D64.9 Anemia, unspecified (principal)

== ENCOUNTER → 2018-02-13 | Outpatient (CLI) | payer OTHER | LOC: M WUC 15:05 | DX: R05 Cough (principal) ==

== ENCOUNTER → 2018-03-07 | Outpatient (REF) | payer OTHER | LOC: M SFHCWAGY 09:04 | DX: Z12.4 Encounter for screening for malignant neoplasm of cervix (principal) ==

== ENCOUNTER → 2018-05-02 | Outpatient (REF) | payer OTHER ==
[2018-05-02 19:06] LABS: BASO % 0.5 % (0.0-1.0); EOS # 0.2 10^3/uL (0.0-0.50); EOS % 3.1 % (0.0-3.0); HEMATOCRIT 37.3 % (36.0-47.0); HEMOGLOBIN 11.2 g/dl (12.0-15.5); IMMATURE GRANULOCYTE % 0.2 % (0-3.0); LYMPH # 2.5 10^3/uL (1.5-4.5); LYMPH % 41.3 % (24.0-44.0); MEAN CORPUSCULAR HEMOGLOBIN 25.3 pg (27.0-33.0); MEAN CORPUSCULAR VOLUME 84.4 fl (80.0-96.0); MONO # 0.6 10^3/uL (0.0-0.8); MONO % 10.3 % (0.0-5.0); NEUTROPHILS # 2.7 10^3/uL (1.8-7.7); NEUTROPHILS % 44.6 % (36.0-66.0); PLATELET COUNT, AUTOMATED 280 10^3/uL (150-450); RED BLOOD COUNT 4.42 10^6/uL (4.00-5.40); RED CELL DISTRIBUTION WIDTH 17.5 % (11.5-14.5); WHITE BLOOD COUNT 6.1 10^3/uL (4.0-10.0)
[2018-05-02 19:31] LABS: ALBUMIN 3.1 GM/DL (3.2-5.2); ALBUMIN/GLOBULIN RATIO 0.84 (1.00-1.93); ALKALINE PHOSPHATASE 275 U/L (45-117); ALT/SGPT 78 U/L (12-78); ANION GAP 7 MEQ/L (8-16); AST/SGOT 46 U/L (7-37); BILIRUBIN,DIRECT 0.1 MG/DL (0.0-0.2); BILIRUBIN,TOTAL 0.3 MG/DL (0.2-1.0); BLOOD UREA NITROGEN 15 MG/DL (7-18); CARBON DIOXIDE LEVEL 30 MEQ/L (21-32); CHLORIDE LEVEL 109 MEQ/L (98-107); CREATININE FOR GFR 0.82 MG/DL (0.55-1.30); GLOMERULAR FILTRATION RATE > 60.0 (>45); GLUCOSE, FASTING 128 MG/DL (70-100); POTASSIUM SERUM 4.1 MEQ/L (3.5-5.1); SODIUM LEVEL 146 MEQ/L (136-145); TOTAL PROTEIN 6.8 GM/DL (6.4-8.2)
== END ==
LOC: M LABDRAW1 17:30
DX: R94.5 Abnormal results of liver function studies (principal)

== ENCOUNTER → 2018-05-17 | Outpatient (REF) | payer OTHER ==
[2018-05-17 15:54] LABS: ALBUMIN 3.1 GM/DL (3.2-5.2); ALBUMIN/GLOBULIN RATIO 0.86 (1.00-1.93); ALKALINE PHOSPHATASE 308 U/L (45-117); ALT/SGPT 147 U/L (12-78); AMYLASE 43 U/L (25-115); AST/SGOT 197 U/L (7-37); BILIRUBIN,DIRECT 1.1 MG/DL (0.0-0.2); BILIRUBIN,TOTAL 1.2 MG/DL (0.2-1.0); LIPASE 122 U/L (73-393); TOTAL PROTEIN 6.7 GM/DL (6.4-8.2)
== END ==
LOC: M LABDRAW1 15:37
DX: R10.13 Epigastric pain (principal); R10.11 Right upper quadrant pain; R11.2 Nausea with vomiting, unspecified; R94.5 Abnormal results of liver function studies; R74.8 Abnormal levels of other serum enzymes

== ENCOUNTER → 2018-07-05 | Outpatient (REF) | payer OTHER ==
[2018-07-05 16:02] LABS: BASO % 0.6 % (0.0-1.0); EOS # 0.2 10^3/uL (0.0-0.50); EOS % 2.2 % (0.0-3.0); HEMOGLOBIN 11.5 g/dl (12.0-15.5); IMMATURE GRANULOCYTE % 0.3 % (0-3.0); LYMPH # 3.1 10^3/uL (1.5-4.5); LYMPH % 45.3 % (24.0-44.0); MEAN CORPUSCULAR HEMOGLOBIN 25.8 pg (27.0-33.0); MEAN CORPUSCULAR HGB CONC 30.3 g/dl (32.0-36.5); MEAN CORPUSCULAR VOLUME 85.4 fl (80.0-96.0); MONO # 0.6 10^3/uL (0.0-0.8); MONO % 9.5 % (0.0-5.0); NEUTROPHILS # 2.8 10^3/uL (1.8-7.7); NEUTROPHILS % 42.1 % (36.0-66.0); PLATELET COUNT, AUTOMATED 281 10^3/uL (150-450); RED BLOOD COUNT 4.45 10^6/uL (4.00-5.40); RED CELL DISTRIBUTION WIDTH 16.6 % (11.5-14.5); WHITE BLOOD COUNT 6.7 10^3/uL (4.0-10.0)
[2018-07-05 16:12] LABS: IRON (FE) 23 UG/DL (50-170); PERCENT SATURATION 4.4 % (13.2-45.0); TOTAL IRON BINDING CAPACITY 524 UG/DL (250-450)
== END ==
LOC: M LAB REF 15:30
DX: E78.00 Pure hypercholesterolemia, unspecified (principal); D64.9 Anemia, unspecified

== ENCOUNTER → 2018-09-12 | Outpatient (REF) | payer OTHER ==
[~2018-09-12] MED LIST changes: +NABU-119 PO; -NABU750T PO; +PERC5TAB12 PO; +ZOFR4TAB14 PO
[2018-09-12 09:31] LABS: ALBUMIN 2.9 GM/DL (3.2-5.2); BILIRUBIN,DIRECT 0.2 MG/DL (0.0-0.2); BILIRUBIN,TOTAL 0.4 MG/DL (0.2-1.0); TOTAL PROTEIN 6.5 GM/DL (6.4-8.2)
== END ==
LOC: M LABDRAW1 09:09
PROVIDERS: ATTEND Physician Assistant
DX: R10.13 Epigastric pain (principal); R10.11 Right upper quadrant pain

== ENCOUNTER → 2018-09-15 | Outpatient (CLI) | payer OTHER ==
[2018-09-15 17:44] LABS: ALBUMIN 3.1 GM/DL (3.2-5.2); BILIRUBIN,DIRECT 0.1 MG/DL (0.0-0.2); BILIRUBIN,TOTAL 0.3 MG/DL (0.2-1.0); TOTAL PROTEIN 6.6 GM/DL (6.4-8.2)
== END ==
LOC: M LAB 16:55
PROVIDERS: ATTEND Physician Assistant
DX: R10.13 Epigastric pain (principal); R10.11 Right upper quadrant pain; R94.5 Abnormal results of liver function studies

== ENCOUNTER → 2018-11-21 | Outpatient (REF) | payer OTHER ==
[2018-11-21 14:19] LABS: PERCENT SATURATION 6.9 % (13.2-45.0)
== END ==
LOC: M LAB REF 12:04
PROVIDERS: ATTEND Internal Medicine
DX: D64.9 Anemia, unspecified (principal); Z98.84 Bariatric surgery status

== ENCOUNTER → 2019-01-25 | Outpatient (REF) | payer BC ==
[~2019-01-25] MED LIST changes: -/PANT40TA PO; -/WARF25TA PO; +COUM1TAB18 PO; +HYDR-3715 PO; -NORC1TAB4 PO; +NORC1TAB7 PO; -NORCOTAB PO; +OXYC1TAB23 PO; -PERCOCET PO; +PROT1TAB2 PO; -SENN1TAB2 PO; +SENN1TAB40 PO; -VICO5TAB16 PO; +VICO5TAB17 PO
== END ==
LOC: M LABDRAW1 12:17
PROVIDERS: ATTEND Internal Medicine Gastroenterology
DX: R10.31 Right lower quadrant pain (principal); Z48.815 Encounter for surgical aftercare following surgery on the digestive system; D50.9 Iron deficiency anemia, unspecified; R05 Cough

== ENCOUNTER → 2019-01-29 | Outpatient (CLI) | payer BC ==
[~2019-01-29] MED LIST changes: +METHACHOLINE KIT (J7674) INH ONE
--- NOTE | 2019-01-29 08:59 | PFTRPT ---
Height: 63.00 Inches Weight: 224.00 Lbs BSA: 2.03 Diagnosis: R05 DATE OF PROCEDURE: 01/29/2019 ORDERED BY: Dr. Knight INTERPRETATION: Study of excellent technical quality. Under protocol, methacholine was administered. Even after a maximal dose of 25 mg or 188.875 CDUs, no provocation dose ever achieved. IMPRESSION: Negative methacholine challenge study. MTDD
== END ==
LOC: M CARPUL 07:54
PROVIDERS: ATTEND Internal Medicine
DX: R94.2 Abnormal results of pulmonary function studies (principal)
CPT/HCPCS: 94070; J7674

== ENCOUNTER → 2019-03-26 | Outpatient (CLI) | payer BC, SELFPAY ==
[~2019-03-26] MED LIST changes: -METHACHOLINE KIT (J7674) INH ONE; -OMEP20CA3 PO; +OMEP20CA4 PO
--- NOTE | 2019-03-26 17:40 | REP ---
Clinical: Chronic cough. Technique: Real time fluoroscopic evaluation of the diaphragm. Findings: Mild chronic elevation to the right hemidiaphragm is appreciated, but normal depression to the bilateral diaphragms is appreciated on sniff test without evidence for paralysis. Total fluoroscopic time 0.3 minutes. Electronically Signed by Mello John MD 03/26/2019 05:32 P
== END ==
LOC: M RAD 03-23 11:13
PROVIDERS: ATTEND Internal Medicine Pulmonary Disease
DX: R05 Cough (principal)

== ENCOUNTER → 2019-04-26 | Outpatient (CLI) | payer SELFPAY ==
--- NOTE | 2019-05-01 09:14 | SLEEPCENT ---
DATE OF PROCEDURE: 04/26/2019 ORDERED BY: Dr. Haile Nocturnal polysomnography was performed for evaluation of sleep physiology in this patient with an abnormal nocturnal oximetry and excessive daytime somnolence. 9 hours and 6 minutes of data were reviewed. There were 504 minutes of sleep identified. Sleep latency was mildly prolonged at 14 minutes. Rapid eye movement (REM) latency was normal at 94.5 minutes. Sleep architecture was good with four REM cycles noted. Overall sleep efficiency was 93.8%. The patient's electrocardiogram showed a sinus rhythm with an average heart rate of 74 beats per minute. Rate ranged 60-90 beats per minute. Electroencephalogram (EEG) showed mild coarsening in the background. No focal events. Normal waveforms for awake and sleep. There were 137 respiratory events identified of 10 seconds in duration or greater for an apnea-hypopnea index of 16.3. The events were primarily obstructive, not exclusive to sleep stage nor body posture. Arousals from respiratory events occurred 2.5 times per hour and oxygen saturation dipped into the 70s. Remaining measures of sleep physiology were normal. IMPRESSION: Moderate obstructive sleep apnea syndrome (G47.33). Apnea-hypopnea index 16.3. RECOMMENDATIONS: The patient should be encouraged to return to sleep disorder center for pressure therapy. In the interim, alcohol and sedative avoidance should be practiced and caution exercised during operation of motor vehicles.
== END ==
LOC: M SLEEP 19:48
PROVIDERS: ATTEND Internal Medicine Pulmonary Disease
DX: G47.33 Obstructive sleep apnea (adult) (pediatric) (principal)

== ENCOUNTER → 2019-04-30 | Outpatient (CLI) | payer BC ==
[2019-04-30 20:18] LABS: BASO % 0.4 % (0.0-1.0); EOS # 0.1 10^3/uL (0.0-0.50); EOS % 1.3 % (0.0-3.0); HEMATOCRIT 36.8 % (36.0-47.0); LYMPH # 2.8 10^3/uL (1.5-4.5); LYMPH % 30.7 % (24.0-44.0); MEAN CORPUSCULAR HEMOGLOBIN 25.2 pg (27.0-33.0); MEAN CORPUSCULAR HGB CONC 29.9 g/dl (32.0-36.5); MEAN CORPUSCULAR VOLUME 84.2 fl (80.0-96.0); MONO % 10.5 % (0.0-5.0); NEUTROPHILS # 5.1 10^3/uL (1.8-7.7); NEUTROPHILS % 56.7 % (36.0-66.0); PLATELET COUNT, AUTOMATED 344 10^3/uL (150-450); RED BLOOD COUNT 4.37 10^6/uL (4.00-5.40); WHITE BLOOD COUNT 9.1 10^3/uL (4.0-10.0)
[2019-04-30 20:23] LABS: C REACTIVE PROTEIN QUANTITATIV 3.32 MG/DL (0.00-0.30)
[2019-05-01 09:52] LABS: FOLLICLE STIMULATING HORMONE 34.6 mIU/mL; LUTEINIZING HORMONE 27.5 mIU/mL
== END ==
LOC: M LRY 17:22
PROVIDERS: ATTEND Internal Medicine
DX: R05 Cough (principal); R50.9 Fever, unspecified; R61 Generalized hyperhidrosis; R11.0 Nausea; K76.0 Fatty (change of) liver, not elsewhere classified

== ENCOUNTER → 2019-06-26 | Outpatient (REF) | payer BC ==
[~2019-06-26] MED LIST changes: +SENN-53 PO; -SENN1TAB40 PO
[2019-06-26 14:15] LABS: BASO % 0.6 % (0.0-1.0); EOS # 0.2 10^3/uL (0.0-0.5); EOS % 3.6 % (0.0-3.0); HEMOGLOBIN 9.4 g/dl (12.0-15.5); LYMPH # 2.4 10^3/uL (1.5-5.0); LYMPH % 35.8 % (24.0-44.0); MEAN CORPUSCULAR HEMOGLOBIN 25.1 pg (27.0-33.0); MEAN CORPUSCULAR HGB CONC 29.4 g/dl (32.0-36.5); MEAN CORPUSCULAR VOLUME 85.3 fl (80.0-96.0); MONO # 0.6 10^3/uL (0.0-0.8); MONO % 8.3 % (0.0-5.0); NEUTROPHILS # 3.4 10^3/uL (1.5-8.5); NEUTROPHILS % 51.1 % (36.0-66.0); PLATELET COUNT, AUTOMATED 351 10^3/uL (150-450); RED BLOOD COUNT 3.75 10^6/uL (4.00-5.40); WHITE BLOOD COUNT 6.6 10^3/uL (4.0-10.0)
[2019-06-26 14:35] LABS: BLOOD UREA NITROGEN 12 MG/DL (7-18); CPK CREATINE PHOSPHOKINASE 15 U/L (26-192); CREATININE FOR GFR 0.78 MG/DL (0.55-1.30); GLOMERULAR FILTRATION RATE > 60.0 (>45)
== END ==
LOC: M SHH 13:42
DX: K35.21 Acute appendicitis with generalized peritonitis, with abscess (principal); B96.1 Klebsiella pneumoniae [K. pneumoniae] as the cause of diseases classified elsewhere

== ENCOUNTER → 2019-07-02 | Outpatient (REF) | payer BC ==
[2019-07-02 16:26] LABS: BASO % 0.6 % (0.0-1.0); EOS # 0.3 10^3/uL (0.0-0.5); HEMATOCRIT 34.4 % (36.0-47.0); HEMOGLOBIN 10.2 g/dl (12.0-15.5); LYMPH # 1.9 10^3/uL (1.5-5.0); LYMPH % 40.4 % (24.0-44.0); MEAN CORPUSCULAR HEMOGLOBIN 26.2 pg (27.0-33.0); MEAN CORPUSCULAR HGB CONC 29.7 g/dl (32.0-36.5); MEAN CORPUSCULAR VOLUME 88.4 fl (80.0-96.0); MONO # 0.5 10^3/uL (0.0-0.8); MONO % 11.4 % (0.0-5.0); NEUTROPHILS # 1.9 10^3/uL (1.5-8.5); NEUTROPHILS % 41.4 % (36.0-66.0); PLATELET COUNT, AUTOMATED 236 10^3/uL (150-450); RED BLOOD COUNT 3.89 10^6/uL (4.00-5.40); WHITE BLOOD COUNT 4.6 10^3/uL (4.0-10.0)
[2019-07-02 16:31] LABS: BLOOD UREA NITROGEN 11 MG/DL (7-18); CPK CREATINE PHOSPHOKINASE 19 U/L (26-192); CREATININE FOR GFR 0.68 MG/DL (0.55-1.30); GLOMERULAR FILTRATION RATE > 60.0 (>45)
== END ==
LOC: M SHH 15:50
DX: K35.33 Acute appendicitis with perforation, localized peritonitis, and gangrene, with abscess (principal); B96.1 Klebsiella pneumoniae [K. pneumoniae] as the cause of diseases classified elsewhere

== ENCOUNTER → 2019-10-03 | Outpatient (REF) | payer BC ==
[~2019-10-03] MED LIST changes: +ARTIDRO2 OU; +MAGN400T3 PO; +OMEP-172 PO; -OMEP20CA4 PO; +VITA100066 PO
== END ==
LOC: M LAB REF 17:26
PROVIDERS: ATTEND Nurse Practitioner Adult Health
DX: R10.9 Unspecified abdominal pain (principal)

== ENCOUNTER 2019-10-04 17:32 | Inpatient (IN) | payer BC ==
[~2019-10-04] VITALS: Ht 162.6 cm; Wt 99.3 kg
[~2019-10-04 17:32] MED LIST changes: -ARTIDRO2 OU; -MAGN400T3 PO; -OMEP-172 PO; +OMEP1CAP73 PO; -VITA100066 PO
[2019-10-04 18:24] LABS: BASO % 0.3 % (0.0-1.0); EOS # 0.1 10^3/uL (0.0-0.5); EOS % 0.5 % (0.0-3.0); HEMATOCRIT 39.3 % (36.0-47.0); HEMOGLOBIN 11.5 g/dl (12.0-15.5); LYMPH # 2.5 10^3/uL (1.5-5.0); LYMPH % 21.6 % (24.0-44.0); MEAN CORPUSCULAR HEMOGLOBIN 23.9 pg (27.0-33.0); MEAN CORPUSCULAR HGB CONC 29.3 g/dl (32.0-36.5); MEAN CORPUSCULAR VOLUME 81.5 fl (80.0-96.0); MONO % 8.3 % (0.0-5.0); NEUTROPHILS # 8.1 10^3/uL (1.5-8.5); PLATELET COUNT, AUTOMATED 359 10^3/uL (150-450); RED BLOOD COUNT 4.82 10^6/uL (4.00-5.40); WHITE BLOOD COUNT 11.7 10^3/uL (4.0-10.0)
[2019-10-04 18:32] LABS: INR 1.06; PROTHROMBIN TIME 13.5 SECONDS (11.8-14.0)
--- NOTE | 2019-10-04 18:32 | REP ---
Portable chest x-ray: Single view. History: Dyspnea and cough. Comparison chest x-ray: February 13, 2018. Findings: EKG monitoring electrodes overlie the chest. Right hemidiaphragm is elevated. There are clips in the upper quadrant of the abdomen on the right. Colonic gas is seen beneath the leaves of the diaphragm bilaterally unchanged. Pleural angles are sharp. No infiltrate is seen. Heart size is normal. Impression: No acute abnormality. Elevated right hemidiaphragm. Electronically Signed by Javad Mayberry MD 10/04/2019 06:23 P
[2019-10-04 18:33] LABS: PARTIAL THROMBOPLASTIN TIME 25.2 SECONDS (25.0-38.4)
[2019-10-04] MEDS ORDERED: ERTAPENEM SODIUM 1 GM in NS MINI-BAG PLUS 50 ML IV ONE (18:45)
[2019-10-04] MEDS ORDERED: ACETAMINOPHEN TAB 650MG DOSE (2X325MG) PO ONE (18:45)
[2019-10-04] MEDS ORDERED: NS 1,000 ML IV ONE ×2 (18:45)
[2019-10-04 18:52] LABS: ALBUMIN 2.8 GM/DL (3.2-5.2); ALT/SGPT 18 U/L (12-78); AMYLASE 51 U/L (25-115); BILIRUBIN,DIRECT 0.1 MG/DL (0.0-0.2); BILIRUBIN,TOTAL 0.2 MG/DL (0.2-1.0); BLOOD UREA NITROGEN 12 MG/DL (7-18); CALCIUM LEVEL 8.8 MG/DL (8.8-10.2); CARBON DIOXIDE LEVEL 29 MEQ/L (21-32); CHLORIDE LEVEL 103 MEQ/L (98-107); CK-MB VALUE MASS < 1.0 NG/ML (<3.6); CPK CREATINE PHOSPHOKINASE 20 U/L (26-192); CREATININE FOR GFR 0.84 MG/DL (0.55-1.30); GLOMERULAR FILTRATION RATE > 60.0 (>45); GLUCOSE, FASTING 94 MG/DL (70-100); LIPASE 124 U/L (73-393); POTASSIUM SERUM 3.9 MEQ/L (3.5-5.1); SODIUM LEVEL 138 MEQ/L (136-145); THYROXINE (T4) 9.4 UG/DL (4.5-12.0); TOTAL PROTEIN 7.8 GM/DL (6.4-8.2); TROPONIN I < 0.02 NG/ML (< 0.10)
[2019-10-04] MEDS ORDERED: DAPTOmycin 500 MG in NS 50 ML IV STA (20:27)
[2019-10-04] MEDS ORDERED: MAGN400T3 PO (21:05)
[2019-10-04] MEDS ORDERED: VITA100066 PO (21:05)
[2019-10-04] MEDS ORDERED: ARTIDRO2 OU (21:05)
[2019-10-04] MEDS ORDERED: DEXTROSE 50% 50 ML SYRINGE IV PRN (22:00)
[2019-10-04] MEDS ORDERED: GLUCOSE 4 GM CHEW TABLET PO PRN (22:00)
[2019-10-04] MEDS ORDERED: KETOROLAC 30 MG/ML VIAL (J1885) IV ONE (22:00)
[2019-10-04] MEDS ORDERED: GLUCAGON FOR INJ 1 MG VIAL (J1610) SC PRN (22:00)
[2019-10-04] MEDS ORDERED: POLYVINYL ALCOHOL OPHTH SOLN 15 ML(LIQUITEARS) OU PRN (22:15)
[2019-10-04] MEDS ORDERED: PILL CUTTER 1 EACH XX PRN (22:15)
[2019-10-04 22:22] VITALS: BP 163/79
[2019-10-04] MEDS: NS 1,000 ML IV SCH (23:05)
[2019-10-04] MEDS: rOPINIRole 1MG TAB PO SCH (23:05)
[2019-10-05] VITALS: BP 121/57
--- NOTE | 2019-10-05 01:37 | IPNPDOC ---
Text Note Date of Service The patient was seen on 10/04/19. NOTE GME attestation. I examined Mrs. Linda at 9:40 PM, reviewed and edited Dr. Villasenor's note and agree the findings as documented. VS,Fishbone, I+O VS, Fishbone, I+O Laboratory Tests 10/04/19 18:05 Vital Signs Date Time Temp Pulse Resp B/P (MAP) Pulse Ox O2 Delivery O2 Flow Rate FiO2 10/04/19 21:45 93 16 130/78 (95) 96 Room Air 10/04/19 20:40 100.0 I&O- Last 24 Hours up to 6 AM 10/05/19 06:00 Intake Total 2110 ml Balance 2110 ml POLLO JIMENEZ MD Oct 05, 2019 01:37
--- NOTE | 2019-10-05 02:48 | HPEPDOC ---
[facility] Medical History & Physical Date of Admission Oct 04, 2019 Date of Service: Oct 04, 2019 Primary Care Physician: Tena Holt Attending Physician: POLLO JIMENEZ MD History and Physical CHIEF COMPLAINT: right back pain, liver abscess on outpt CT HISTORY OF PRESENT ILLNESS: hBumi Linda is a 63 year old female with a past medical history of RA on Humira who presented to the emergency department with worsening right back pain and recent CT findings by her primary care physician. The patient states her symptoms started around [place] when she developed a sinus infection and had worsening coughing. Patient noted worsening right back pain which she describes as sharp and stabbing. The patient states that her pain radiates down the right side of her back and wraps around to the right upper quadrant of her abdomen. She denies any numbness or tingling in her back or abdomen. She did go to her PCP for further evaluation and had a CT of her abdomen done which revealed liver abscesses. The patient was instructed by her PCP to present to the emergency department due to her worsening pain in CT finding. The patient notes that her pain is worse any time she coughs, sneezes, or lays flat. She states she has been off of her Humira since the beginning of August. Of note, the patient was previously treated at [facility] for appendiceal abscess in April or May 2019. The patient states that she didn't require surgery and since then had been feeling well until the sinus infection developed in late August 2019. The patient states that in addition to her right back pain and cough, she is also experiencing subjective fevers, chills, and night sweats. She also notes that she feels somewhat short of breath because of the pain on inspiration in her right back. She states she is not able to take a deep breath or catch her breath as quickly as usual. PAST MEDICAL HISTORY: 1. Rheumatoid Arthritis, on Humira 2. Restless leg syndrome PAST SURGICAL HISTORY: 1. Bilateral total knee arthroplasty 2. Heather-en-Y 2005 3. Cholecystectomy 2016 4. Appendectomy 2019. SOCIAL HISTORY: Never smoker. Denies alcohol use. Denies history of illicit/IV drug use. FAMILY HISTORY: Father: Colon cancer, of CHF Mother: Osteoarthritis ALLERGIES: Please see below. REVIEW OF SYSTEMS: CONSTITUTIONAL: Endorses fevers, chills, night sweats, fatigue, weight loss of about 5-10lbs over 1-2 months. HEENT: Denies change in vision, change in hearing. CARDIOVASCULAR: Endorses shortness of breath secondary to pain with deep inspiration. Denies chest pain, palpitations, lightheadedness. RESPIRATORY: Endorses nonproductive cough. Denies wheezing, coughing up blood. GASTROINTESTINAL: Endorses nausea and pain wrapping around from her back into her right upper quadrant. Denies vomiting, diarrhea, constipation, blood in stool. GENITOURINARY: Denies dysuria, urinary frequency, urinary urgency. SKIN: Denies rash, lesions. MUSCULOSKELETAL: Endorses right back pain described in HPI. NEUROLOGICAL: Denies headache, dizziness, weakness. PSYCHIATRIC: Denies change in mood. HOME MEDICATIONS: Please see below. PHYSICAL EXAMINATION: VITAL SIGNS: See below GENERAL: Alert, comfortable, in no acute distress HEENT: Normocephalic, atraumatic, PERRLA, EOMI, moist mucous membranes. Sclerae anicteric. NECK: Supple, trachea midline, no lymphadenopathy, no JVD CARDIOVASCULAR: Regular rate and rhythm, normal S1 and S2. No murmurs, rubs, or gallops RESPIRATORY: Clear to auscultation bilaterally with equal air entry bilaterally. No wheezing, rhonchi, or rales. ABDOMEN: Obese, soft, nontender, nondistended, bowel sounds present. EXTREMITIES: No cyanosis or edema. Pulses 2+/4 in bilateral upper and lower extremities SKIN: [place], warm, dry NEUROLOGIC: Alert and oriented 3 to person, place and time. Cranial nerves 2-12 grossly intact. No focal deficits appreciated. PSYCHIATRIC: Mood and affect appropriate LABORATORY DATA: See below. IMAGING: - CXR: No acute abnormality. Elevated right hemidiaphragm. MICROBIOLOGY: Please see below. ASSESSMENT: 63-year-old female with history of rheumatoid arthritis on Humira presents with worsening right-sided back pain and found to have liver region abscesses on outpatient CT. PLAN: 1. Liver abscess Seen on outpatient CT imaging, report available in patient's chart. Antibiotic coverage with daptomycin and ertapenem, day #1. Consult to interventional radiology for possible procedure, appreciate their input and recommendations. Consult to infectious disease, appreciate their input and recommendations. 2. Sepsis with SIRS criteria - Tmax 103.7F, HR >90, RR>22 on admission with liver abscess as likely source of infection - s/p 2 L IV fluids in the ED. Lactic acid 2.4. Blood cultures x2 pending - Antibiotic coverage as above for liver abscess 3. Hx of appendiceal abscess -Requested records from [facility] Rheumatoid arthritis. Has been off Humira since the beginning of August Restless leg syndrome. Continue home Requip DVT prophylaxis: Teds and SCDs. Disposition: Admitted inpatient to PCU, likely home after at least 2 midnights today Vital Signs Vital Signs Date Time Temp Pulse Resp B/P (MAP) Pulse Ox O2 Delivery O2 Flow Rate FiO2 10/04/19 21:45 93 16 130/78 (95) 96 Room Air 10/04/19 20:40 100.0 Laboratory Data Labs 24H Laboratory Tests 2 10/04/19 18:05: Immature Granulocyte % (Auto) 0.3, Neutrophils (%) (Auto) 69.0H, Lymphocytes (%) (Auto) 21.6L, Monocytes (%) (Auto) 8.3H, Eosinophils (%) (Auto) 0.5, Basophils (%) (Auto) 0.3, Neutrophils # (Auto) 8.1, Lymphocytes # (Auto) 2.5, Monocytes # (Auto) 1.0H, Eosinophils # (Auto) 0.1, Basophils # (Auto) 0.0, Nucleated Red Bl ood Cells % (auto) 0.0, Prothrombin Time 13.5, Prothromb Time International Ratio 1.06, Activated Partial Thromboplast Time 25.2, Anion Gap 6L, Glomerular Filtration Rate > 60.0, Lactic Acid Level 2.4*H, Calcium Level 8.8, Total Bilirubin 0.2, Direct Bilirubin 0.1, Aspartate Amino Transf (AST/SGOT) 16, Alanine Aminotransferase (ALT/SGPT) 18, Alkaline Phosphatase 79, Total Creatine Kinase 20L, Creatine Kinase MB < 1.0, Creatine Kinase MB Relative Index 5.00H, Troponin I < 0.02, Total Protein 7.8, Albumin 2.8L, Albumin/Globulin Ratio 0.56L, Amylase Level 51, Lipase 124, Thyroid Stimulating Hormone (TSH) 1.580, Thyroxine (T4) 9.4 10/04/19 21:10: Urine Color YELLOW, Urine Appearance HAZY, Urine pH 6.0, Urine Specific [place] 1.011, Urine Protein NEGATIVE, Urine Glucose (UA) NEGATIVE, Urine Ketones NEGATIVE, Urine Blood NEGATIVE, Urine Nitrite NEGATIVE, Urine Bilirubin NEG ATIVE, Urine Urobilinogen 0.2, Urine Leukocyte Esterase NEGATIVE, Urine WBC (Auto) 1, Urine RBC (Auto) 4H, Urine Hyaline Casts (Auto) 0, Urine Bacteria (Auto) NEGATIVE, Urine Squamous Epithelial Cells 1, Urine Mucus (Auto) SMALL, Urine Sperm (Auto) CBC/BMP Laboratory Tests 10/04/19 18:05 Microbiology Microbiology 10/04/19 Respiratory Virus Panel (PCR) (MICHELLE) - Final, Complete 10/04/19 Blood Culture, Received Pending 10/04/19 Blood Culture, Received Pending Home Medications Scheduled Adalimumab (Humira) 40 Mg/0.8 Ml Kit, 40 MG SC Q2WK INJECTED SC INTO ABDOMEN: ON HOLD. LAST DOSE WAS WEEK August Cholecalciferol (Vitamin D3) (Vitamin D3) 1,000 Unit Tablet, 1,000 UNIT PO DAILY Magnesium Oxide (Magnesium Oxide) 400 Mg Tablet, 400 MG PO DAILY Ropinirole HCl (Ropinirole HCl) 0.5 Mg Tab, 1.5 MG PO QHS Scheduled PRN Polyvinyl Alcohol (Artificial Tears) 15 Ml Drops, 1 DROP OU QID PRN for DRY EYES Allergies Coded Allergies: Cephalosporins (Verified Allergy, Intermediate, CECLOR- RASH AND HIVES, 01/29/19) Sulfa (Sulfonamide Antibiotics) (Verified Allergy, Intermediate, RASH AND HIVES, 01/29/19) dicloxacillin (Verified Allergy, Intermediate, HIVES (ZOSYN GIVEN WITH NO ISSUE), 01/29/19) erythromycin base (Verified Allergy, Intermediate, RASH AND HIVES, 01/29/19) Quinolones (Verified Allergy, Unknown, 01/29/19) hydrocodone (Verified Allergy, Unknown, 01/29/19) A-FIB/CHADSVASC A-FIB History Current/History of A-Fib/PAF?: No GME ATTESTATION GME ATTESTATION My faculty preceptor for this patient encounter was physically present during the encounter and was fully available. All aspects of the patient interview, examination, medical decision making process, and medical care plan development were reviewed and approved by the faculty preceptor. The faculty preceptor is aware and concurs with the plan as stated in the body of this note and will attest to such by his/her cosignature. ATTENDING NOTE pls see addendum in progress note JOY VELASQUEZ D.O. Oct 04, 2019 23:55 POLLO JIMENEZ MD Oct 05, 2019 06:13
[2019-10-05 04:00] VITALS: BP 131/88
[2019-10-05 05:55] LABS: HEMOGLOBIN 10.2 g/dl (12.0-15.5); MEAN CORPUSCULAR HGB CONC 29.1 g/dl (32.0-36.5); MEAN CORPUSCULAR VOLUME 82.4 fl (80.0-96.0); PLATELET COUNT, AUTOMATED 311 10^3/uL (150-450); RED BLOOD COUNT 4.25 10^6/uL (4.00-5.40); WHITE BLOOD COUNT 10.2 10^3/uL (4.0-10.0)
[2019-10-05] MEDS: HumaLOG INSULIN (NovoLOG) PER UNIT SC SCH ×4 (06:00→18:00)
[2019-10-05 06:13] LABS: BLOOD UREA NITROGEN 10 MG/DL (7-18); CALCIUM LEVEL 8.1 MG/DL (8.8-10.2); CARBON DIOXIDE LEVEL 27 MEQ/L (21-32); CHLORIDE LEVEL 110 MEQ/L (98-107); CREATININE FOR GFR 0.63 MG/DL (0.55-1.30); GLOMERULAR FILTRATION RATE > 60.0 (>45); GLUCOSE, FASTING 100 MG/DL (70-100); POTASSIUM SERUM 3.9 MEQ/L (3.5-5.1); SODIUM LEVEL 143 MEQ/L (136-145)
--- NOTE | 2019-10-05 07:01 | REPVR ---
PROCEDURE INFORMATION: Exam: CT Abdomen And Pelvis Without Contrast Exam date and time: 10/05/2019 5:10 AM Age: 63 years old Clinical indication: Abdominal pain; Generalized TECHNIQUE: Imaging protocol: Computed tomography of the abdomen and pelvis without contrast. Radiation optimization: All CT scans at this facility use at least one of these dose optimization techniques: automated exposure control; mA and/or kV adjustment per patient size (includes targeted exams where dose is matched to clinical indication); or iterative reconstruction. COMPARISON: CT ABD PELVIS W/O CONTRAST 07/15/2017 12:11 PM FINDINGS: Lungs: Mild centrilobular emphysema. Liver: There is an ill defined probably multiloculated complex fluid collection tracking along the right retroperitoneum. The largest loculation appears to be along the subcapsular aspect of the right posterior hepatic segment measuring approximately 7.4 x 2.6 x 9 cm. The collection is inseparable from the right hemidiaphragm with extensive airspace consolidation in the adjacent right lower lobe. Caudally the collection extends to the right aspect of the pelvic rim. Gallbladder and bile ducts: Status post cholecystectomy. Pancreas: Normal. No ductal dilation. Spleen: Normal. No splenomegaly. Adrenals: Normal. No mass. Kidneys and ureters: Normal. No hydronephrosis. Stomach and bowel: Status post Heather-en-Y gastric bypass. Appendix: Status post appendectomy. Intraperitoneal space: No pneumoperitoneum or ascites. Retroperitoneal space: See above. Vasculature: Atherosclerotic disease. Lymph nodes: Unremarkable. No enlarged lymph nodes. Bladder: Unremarkable as visualized. Reproductive: Unremarkable as visualized. Bones/joints: Mild anterolisthesis of L4 on L5. Severe multilevel degenerative disc disease and facet hypertrophy. Stenosis of the spinal canal at L4-5. Soft tissues: Unremarkable. Other findings: Eventration of the right hemidiaphragm. IMPRESSION: There is an ill defined probably multiloculated complex fluid collection tracking along the right retroperitoneum. The largest loculation appears to be along the subcapsular aspect of the right posterior hepatic segment measuring approximately 7.4 x 2.6 x 9 cm. The collection is inseparable from the right hemidiaphragm with extensive airspace consolidation in the adjacent right lower lobe. Caudally the collection extends to the right aspect of the pelvic rim. Electronically signed by: Amadeo Cooper On 10/05/2019 07:01:12 AM
[2019-10-05 08:00] VITALS: BP 142/72
[2019-10-05] MEDS: NS 1,000 ML IV SCH ×2 (08:49→17:49)
[2019-10-05] MEDS: VITAMIN D 1,000 INTERNATIONAL UNITS TABLET PO SCH (08:50)
[2019-10-05] MEDS: MAGNESIUM OXIDE 400 MG TAB (MAG-OX) PO SCH (08:50)
[2019-10-05 11:39] LABS: C REACTIVE PROTEIN QUANTITATIV 5.39 MG/DL (0.00-0.30)
[2019-10-05 12:00] VITALS: BP 148/88
--- NOTE | 2019-10-05 12:06 | IPNPDOC ---
Text Note Date of Service The patient was seen on 10/05/19. NOTE SUBJECTIVE: -Feels ok, R flank pain much better since she started pain medications -Has not eaten since yesterday -Family at bedside, has many questions including, how many collections are they? Will they drain them all? Will this come back? Told her that IR plans on drainage today of large R RP loculation for source control and will be seen by ID while on empiric antibiotics until a source is identified. PHYSICAL EXAMINATION: VITAL SIGNS: See below GENERAL: Alert, comfortable, in no acute distress HEENT: NCAT, PERRLA, EOMI, MMM, anicteric. NECK: Supple, trachea midline, no lymphadenopathy, no JVD CARDIOVASCULAR: Regular rate and rhythm, normal S1 and S2. No murmurs, rubs, or gallops RESPIRATORY: Clear to auscultation bilaterally with equal air entry bilaterally. No wheezing, rhonchi, or rales. ABDOMEN: Obese, soft, mild tenderness to palpation of RUQ and R flank, nondistended, bowel sounds present. EXTREMITIES: No cyanosis or edema. Pulses 2+ in bilateral upper and lower extremities SKIN: [place], warm, dry NEUROLOGIC: Alert and oriented 3 to person, place and time. Cranial nerves 2-12 grossly intact. No focal deficits appreciated. Moving all extremities spon taneously PSYCHIATRIC: Mood and affect appropriate LABORATORY DATA: Reviewed. WBC 10.2, Hgb 10.2, Hct 35, Platelets 311, Na 143, K 3.9, Cr 0.63, INR 1.06, UA bland. IMAGING: - CXR: No acute abnormality. Elevated right hemidiaphragm. - CT A/P: There is an ill defined probably multiloculated complex fluid collection tracking along the right retroperitoneum. The largest loculation appears to be along the subcapsular aspect of the right posterior hepatic segment measuring approximately 7.4 x 2.6 x 9 cm. The collection is inseparable from the right hemidiaphragm with extensive airspace consolidation in the adjacent right lower lobe. Caudally the collection extends to the right aspect of the pelvic rim. Gallbladder and bile ducts: Status post cholecystectomy. Pancreas: Normal. No ductal dilation. Spleen: Normal. No splenomegaly. Adrenals: Normal. No mass. Kidneys and ureters: Normal. No hydronephrosis. Stomach and bowel: Status post Heather-en-Y gastric bypass. Appendix: Status post appendectomy. Intraperitoneal space: No pneumoperitoneum or ascites. Retroperitoneal space: See above. Vasculature: Atherosclerotic disease. Lymph nodes: Unremarkable. No enlarged lymph nodes. Bladder: Unremarkable as visualized. Reproductive: Unremarkable as visualized. Bones/joints: Mild anterolisthesis of L4 on L5. Severe multilevel degenerative disc disease and facet hypertrophy. Stenosis of the spinal canal at L4-5. Soft tissues: Unremarkable. Other findings: Eventration of the right hemidiaphragm. IMPRESSION: There is an ill defined probably multiloculated complex fluid collection tracking along the right retroperitoneum. The largest loculation appears to be along the subcapsular aspect of the right posterior hepatic segment measuring approximately 7.4 x 2.6 x 9 cm. The collection is inseparable from the right hemidiaphragm with extensive airspace consolidation in the adjacent right lower lobe. Caudally the collection extends to the right aspect of the pelvic rim. MICROBIOLOGY: Please see below. ASSESSMENT: 63-year-old W with RA on Humira, s/p Heather-en-Y in 2005, recent history of abdominal abscesses treated in [place], s/p cholecystectomy and appendectomy after appendicitis with abscess, who presented with worsening right-sided back pain and found to a large liver multiloculated abscess on CT and now started on dapto/ertapenem with ID and IR consultation in place pending IR US guided drainage today. PLAN: 1. Liver abscess: as noted above on CT Antibiotic coverage with daptomycin and ertapenem, day #1. Consulted to interventional radiology --> plan is for US guided IR drainage today, appreciate their input and recommendations. Consult to infectious disease, pending recommendations. 2. Sepsis with SIRS criteria - Tmax 103.7F, HR >90, RR>22 on admission with liver abscess as likely source of infection - s/p 2 L IV fluids in the ED. Lactic acid 2.4. Blood cultures x2 pending - Antibiotic coverage as above for liver abscess 3. Hx of appendiceal abscess -Requested records from [facility], pending Rheumatoid arthritis. Has been off Humira since the beginning of August Restless leg syndrome. Continue home Requip DVT prophylaxis: Teds and SCDs. Disposition: Pending IR drainage, on abx, pending ID consult VS,[place], I+O VS, Fishbone, I+O Laboratory Tests 10/04/19 18:05 10/05/19 05:38 Vital Signs Date Time Temp Pulse Resp B/P (MAP) Pulse Ox O2 Delivery O2 Flow Rate FiO2 10/05/19 08:00 99.7 89 18 142/72 (95) 95 Room Air I&O- Last 24 Hours up to 6 AM 10/05/19 06:00 Intake Total 2110 ml Output Total 0 ml Balance 2110 ml RICHARD TAVAREZ MD Oct 05, 2019 12:06
[2019-10-05] MEDS ORDERED: VANCOMYCIN HCL 1,000 MG, VIAL MATE ADAPTER 1 EACH in D5W 250 ML IV SCH (12:30)
[2019-10-05] MEDS ORDERED: LIDOCAINE 1% MDV 20ML VIAL As Ordered ONE ×2 (13:08→15:40)
[2019-10-05] MEDS: KETOROLAC 30 MG/ML VIAL (J1885) IV PRN ×2 (14:43→23:13)
[2019-10-05] MEDS: LINEZOLID 600 MG in IV 1 EA IV SCH (15:26)
[2019-10-05] MEDS ORDERED: ERTAPENEM SODIUM 1 GM in NS MINI-BAG PLUS 50 ML IV SCH (18:00)
[2019-10-05] MEDS: SODIUM CHLORIDE 0.9% INJ 10 ML SYR IV SCH (18:00)
[2019-10-05] MEDS: MEROPENEM INJ 1 GM in IV 1 EA IV SCH (18:32)
[2019-10-05] MEDS: ACETAMINOPHEN TAB 650MG DOSE (2X325MG) PO PRN (18:37)
--- NOTE | 2019-10-05 19:16 | CR ---
DATE OF CONSULTATION: 10/05/2019 INFECTIOUS DISEASE CONSULTATION Asked to consult by hospitalist for evaluation of chronic right subdiaphragmatic liver abscess. HISTORY OF PRESENT ILLNESS: Bhumi is a 63-year-old female with a complicated medical history that she relates since 2016 when she had acute cholecystitis with polymicrobial infection that required a biliary drainage procedure and then she underwent a laparoscopic cholecystectomy by Dr. Staton, 07/16/2017 - it was attempted on 07/16/2017 but failed and then she went back to the operating room on 08/17/2017. In 2018, the patient had further complications of gallstone pancreatitis and was hospitalized at [facility] in May of 2018. In 2018, she had chronic cough, chronic abdominal pain, and she recalls that up until December of 2018, she was having night sweats, chills, cough, nonproductive, chronic abdominal pain. She had an abdominal MRI in January of 2018, which showed no evidence of infection. She eventually drove herself to the [facility] in April and was diagnosed with a ruptured appendix with multiple abdominal abscesses that were mostly described in the subdiaphragmatic area and paracolic retroperitoneal area. And she had a drainage procedure of the right lobe of the liver abscess, which on 05/23 a gram stain from the [facility] had gram-positive cocci in pairs and gram-negative rods. Eventually it was read as mixed enteric [place] and was not identified. On 06/16, she had another culture during her hospitalization from 06/15 to 06/22 and that culture had been taken from the posterior right perihepatic collection and paracolic gutter, and that culture was positive for Klebsiella pneumoniae resistant to Zosyn, ampicillin, Unasyn and VRE faecium sensitive to linezolid and daptomycin. The patient was under the care of Dr. Randolph Ward. She had a peripherally inserted central catheter (PICC) line placed, and she was discharged home on daptomycin to cover for VRE and ertapenem. Antibiotics were discontinued on 07/05/19, PICC line was removed, and the patient was feeling great. She started feeling sick again in August, around the , she had a cough, was diagnosed with sinusitis, was given Augmentin for 10 days with some improvement of her symptoms. Followed up with her primary care provider, Tena Wadsworth, who ordered a CT chest and abdomen and found that she had again subdiaphragmatic liver abscess, and she had a fever of 103.5 and therefore, recommendation was to be hospitalized. The patient is scheduled to have ultrasound-guided drainage of the abscess. She has mild right upper quadrant abdominal pain. She has a chronic cough, which is nonproductive. No nausea, vomiting or diarrhea. She has a history of rheumatoid arthritis, on Humira, and was off Humira in the summer when she was on IV antibiotics but had restarted taking them in July and August. OTHER PAST MEDICAL HISTORY: Significant for rheumatoid arthritis - on Humira, diagnosed in 2005, follows up with Dr. Krystal Bonilla in [place], restless leg syndrome, history of morbid obesity, status post gastric bypass in 2005, osteoarthritis, history of acute cholecystitis with abscess requiring drainage procedure on 07/16/2017, culture positive for Escherichia (E) coli, Porphyromonas and Actinomyces Israelii, history of methicillin-sensitive Staphylococcus aureus (MSSA) colonization on nasal culture from 02/2013. History of gallstone pancreatitis May of 2018 and subdiaphragmatic hepatic abscess, perihepatic collection and right paracolic gutter from ruptured appendix, taken care at the [facility] with two hospitalizations on 05/23-05/29 and 06/15-06/22. PAST SURGICAL HISTORY: Bilateral total knee arthroplasty done by Dr. Myers at [facility], Heather-en-Y procedure in 2005 at [facility], cholecystectomy 07/[address] Staton, appendectomy, laparoscopic done by Dr. Gamez at the [facility] on 06/20/2019. SOCIAL HISTORY: She never smoked. Denies alcohol use, illicit drug use. She is . She lives with her . 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 FAMILY HISTORY: Father had colon cancer, congestive heart failure. Mother has osteoarthritis. ALLERGIES: QUINOLONES, CEPHALOSPORINS, rash from CECLOR and hives, SULFA rash and hives, DICLOXACILLIN but patient has received Zosyn in January of 2019 without a problem, ERYTHROMYCIN, QUINOLONES unknown allergy and HYDROCODONE. LABORATORY DATA: White count is 10.2, hemoglobin 10.2, hematocrit 35, platelets 311. Sodium 143, potassium 3.9, chloride 110, bicarbonate 27, BUN 10, creatinine 0.63, glucose 100, calcium 8.1, CRP 5.39, AST 16, ALT 18, alkaline phosphatase 79, total CK 20, troponin less than 0.02, albumin 2.8, TSH 1.58. Microbiology: Blood cultures two sets were drawn at 6:00 p.m. yesterday and 6:25 are pending. Respiratory panel was negative. IMAGING: Chest x-ray shows no acute abnormality, elevated right hemidiaphragm, portable view. CT abdomen without contrast shows a large 7.4 x 2.6 x 9 cm loculated collection, appears to be subcapsular in the right posterior hepatic segment. The collection is inseparable from the right hemidiaphragm with extensive airspace consolidation in the right lower lobe of the lung. This collection seems to be connecting to another smaller collection, and according to the report, that collection extends all the way to the right aspect of the pelvic rim. On 03/26/2019, a workup of her chronic cough done by Dr. Haile included a chest fluoroscopy (fluoro) sniff test, which showed chronic elevation of the right hemidiaphragm but normal depression to bilateral diaphragm appreciated on sniff test without evidence of paralysis. PHYSICAL EXAM: She is an obese female in no acute distress. Temperature is 99.7, pulse 89, respirations 18, blood pressure 142/72, oxygen saturation (O2 sat) 95% on room air. Maximum temperature (T max) yesterday was 103.7. Heart: Normal, S1, S2. No murmurs, rubs or gallops appreciated. Lungs are clear. No wheezes, rales or rhonchi but diminished at the right base. Abdomen: Obese, mild tenderness in the right upper quadrant, well-healed laparoscopic scars of cholecystectomy and appendectomy. Back: No costovertebral angle (CVA) or lumbosacral tenderness. Genitourinary (): Normal for age. Extremities: No clubbing, cyanosis or edema. Deformities of toes from rheumatoid arthritis. Bilateral knee total joint replacement with normal range of motion and no redness. Neurologic Exam: Alert, oriented times three. Motor strength normal. Neck, Head and ENT: Supple. No jugular venous distention (JVD). No carotid bruit. Oropharynx is clear. Left forearm has an IV, very small, she has very poor IV access. MEDICATIONS: Ertapenem 1 gram IV every 24 hours and daptomycin 500 mg IV every 24 hours. Tylenol as needed. Requip 1.5 mg by mouth nightly. Insulin sliding scale. Magnesium oxide 400 mg by mouth daily. IMPRESSION: This is a 63-year-old female who had had ruptured appendicitis diagnosed in April of 2019, status post laparoscopic appendectomy in [facility] 06/20/2019, complicated by multiple intra-abdominal abscesses, including a large subdiaphragmatic abscess that was drained by the [facility]. Cultures on 06/16/2019 were positive for Klebsiella pneumoniae resistant to Zosyn and VRE sensitive to daptomycin. The patient was on IV antibiotics until 07/05 through the [facility] with ertapenem and daptomycin. After she had finished those antibiotics, the patient had persistent subdiaphragmatic collection that was supposed to be followed up clinically. The patient 2-1/2 months later has evidence of recurrent abscess, which is in the same location as previously. PLAN: Discontinue IV daptomycin. The patient could have developed daptomycin resistant VRE. Switch to linezolid 600 mg IV every 12 hours. That should cover staph aureus and VRE and all gram-positive pathogens. Discontinue IV ertapenem, switch to meropenem to cover also for Pseudomonas, 1 gram every 8 hours. Case has been discussed with the [facility], Dr. Randolph Ward, who took care of her during her previous hospitalization. Case has been discussed with Dr. Enrique who is the hospitalist on service. If the patient cannot be drained by interventional radiology, as there was some concern about that at the [facility], she may need surgical intervention and that might be a case that may need to be transferred back to the [facility] with Dr. Gamez or possibly our general surgery group. The patient is immunocompromised because of Humira use, which she has recently used in August. She will need prolonged IV antibiotics. She will need a PICC line placed, which has been ordered today. She will need prolonged IV antibiotics, at least 6-8 weeks.
[2019-10-05 20:00] VITALS: BP 121/58
[2019-10-05] MEDS ORDERED: DAPTOmycin 500 MG in NS 50 ML IV SCH (20:00)
[2019-10-05] MEDS: rOPINIRole 1MG TAB PO SCH (20:17)
[2019-10-06] VITALS (7 sets, daily range): BP systolic 107–160; BP diastolic 54–90
[2019-10-06] MEDS: MEROPENEM INJ 1 GM in IV 1 EA IV SCH ×3 (03:12→18:12)
[2019-10-06] MEDS: LINEZOLID 600 MG in IV 1 EA IV SCH ×2 (04:02→14:53)
[2019-10-06] MEDS: SODIUM CHLORIDE 0.9% INJ 10 ML SYR IV SCH ×2 (04:08→18:13)
[2019-10-06] MEDS: ACETAMINOPHEN TAB 650MG DOSE (2X325MG) PO PRN ×2 (04:34→16:00)
--- NOTE | 2019-10-06 04:36 | REP ---
ULTRASOUND-GUIDED RIGHT ABDOMINAL ABSCESS DRAIN The procedure was performed under the direct supervision of Dr. Mayberry. Patient has a history of ill-defined complex fluid collection tracking along the right retroperitoneum with the largest loculation along the subcapsular aspect of the right posterior hepatic segment with a another collection in caudally extending into the right aspect of the pelvic rim seen on a previous CT scan performed earlier today. The risks and benefits of the procedure were explained to the patient and informed consent was obtained. The two fluid collections were localized using ultrasound guidance. The skin was prepped and draped in a sterile fashion. The fluid collection in the adjacent to the pelvic rim was addressed first. 1% lidocaine was used as a local anesthetic. Using ultrasound guidance and trocar technique an 8-Azeri Skater APDL catheter was inserted using trocar technique. In the 25 ml of proteinaceous fluid was withdrawn and sent to the lab for analysis. The catheter was affixed to the skin. The subcapsular fluid collection was localized using ultrasound guidance. 1% lidocaine was used as a local anesthetic. Using ultrasound guidance and trocar technique an 8-Azeri Skater APDL catheter was inserted using trocar technique. 30 ml of proteinaceous fluid was withdrawn and sent to lab for analysis. The catheter was affixed to the skin. Sterile dressings were applied and the catheters were connected to gravity drainage bags. The patient tolerated the procedure well and there were no immediate complications. After the appropriate amount of monitored convalescence the patient was discharged from the department. Electronically Signed by MEGHA Marinelli 10/05/2019 05:50 P Electronically Signed by Javad Mayberry MD 10/06/2019 04:27 A
--- NOTE | 2019-10-06 04:43 | REP ---
Procedure: PICC line insertion with Sha The procedure was performed under the direct supervision of Dr. Mayberry. The risks and benefits of the procedure were explained to the patient and informed consent was obtained. The left basilic vein was localized using ultrasound guidance. The skin was prepped and draped in a sterile fashion. 2% lidocaine was used as a local anesthetic. Using ultrasound guidance the basilic vein was cannulated and a 0.018 guidewire was inserted and advanced to the SVC using fluoroscopic guidance. The needle was removed and a 5.5 Sudanese dilator and peel-away sheath was inserted over the guide wire. A 5.5 Sudanese dual lumen catheter was cut to length of 38 cm. The dilator was removed and the catheter was inserted over the guide wire with the tip ending in the SVC. The peel-away sheath was removed and the catheter was flushed with heparinized saline as per Hospital protocol. The catheter was affixed to the skin and a sterile dressing was applied. The patient tolerated the procedure well and there were no immediate complications. 0.1 minutes of fluoro time was utilized for this procedure. Electronically Signed by MEGHA Marinelli 10/05/2019 05:57 P Electronically Signed by Javad Mayberry MD 10/06/2019 04:36 A
[2019-10-06] MEDS: KETOROLAC 30 MG/ML VIAL (J1885) IV PRN ×2 (05:24→13:36)
[2019-10-06] MEDS: VITAMIN D 1,000 INTERNATIONAL UNITS TABLET PO SCH (08:39)
[2019-10-06] MEDS: MAGNESIUM OXIDE 400 MG TAB (MAG-OX) PO SCH (08:39)
[2019-10-06] MEDS: SODIUM CHLORIDE 0.9% INJ 10 ML SYR IV PRN (09:44)
[2019-10-06] MEDS ORDERED: SODIUM CHLORIDE 0.9% INJ 10 ML SYR IV PRN (09:45)
[2019-10-06 10:05] LABS: HEMATOCRIT 31.7 % (36.0-47.0); HEMOGLOBIN 9.2 g/dl (12.0-15.5); MEAN CORPUSCULAR VOLUME 82.8 fl (80.0-96.0); PLATELET COUNT, AUTOMATED 276 10^3/uL (150-450); RED BLOOD COUNT 3.83 10^6/uL (4.00-5.40); WHITE BLOOD COUNT 6.1 10^3/uL (4.0-10.0)
[2019-10-06 10:36] LABS: ALBUMIN 2.2 GM/DL (3.2-5.2); ALT/SGPT 11 U/L (12-78); BILIRUBIN,TOTAL 0.2 MG/DL (0.2-1.0); BLOOD UREA NITROGEN 10 MG/DL (7-18); CALCIUM LEVEL 8.2 MG/DL (8.8-10.2); CARBON DIOXIDE LEVEL 27 MEQ/L (21-32); CHLORIDE LEVEL 111 MEQ/L (98-107); CREATININE FOR GFR 0.58 MG/DL (0.55-1.30); GLOMERULAR FILTRATION RATE > 60.0 (>45); GLUCOSE, FASTING 97 MG/DL (70-100); POTASSIUM SERUM 4.1 MEQ/L (3.5-5.1); SODIUM LEVEL 144 MEQ/L (136-145); TOTAL PROTEIN 5.6 GM/DL (6.4-8.2)
[2019-10-06 11:02] LABS: ERYTHROCYTE SEDIMENTATION RATE 65 mm/hr (0-30)
--- NOTE | 2019-10-06 13:27 | IPNPDOC ---
Text Note Date of Service The patient was seen on 10/06/19. NOTE SUBJECTIVE: -Feels ok, R flank well controlled with current pain regimen -Reports sweats with drenching her sheets without a fever -had two drains placed by IR yesterday, reports that it went well and they have had minimal output since returning to the floor -Tolerating PO well Interim events: -Was seen by Dr. Loredo, now on linezolid/Hellen, given history of VRE and to cover pseudomonas until we have culture data -Had abscess drainage by IR and two drains placed PHYSICAL EXAMINATION: VITAL SIGNS: See below GENERAL: Alert, comfortable, in no acute distress HEENT: NCAT, PERRLA, EOMI, MMM, anicteric. NECK: Supple, trachea midline, no lymphadenopathy, no JVD CARDIOVASCULAR: Regular rate and rhythm, normal S1 and S2. No murmurs, rubs, or gallops RESPIRATORY: Clear to auscultation bilaterally with equal air entry bilaterally. No wheezing, rhonchi, or rales. ABDOMEN: Obese, soft, mild tenderness to palpation of RUQ and R flank, nondistended, bowel sounds present, has two drains, no leakage and no surrounding erythema. Minimal output present in bags. EXTREMITIES: No cyanosis or edema. Pulses 2+ in bilateral upper and lower extremities SKIN: [place], warm, dry NEUROLOGIC: Alert and oriented 3 to person, place and time. Cranial nerves 2-12 grossly intact. No focal deficits appreciated. Moving all extremities spontaneously PSYCHIATRIC: Mood and affect appropriate LABORATORY DATA: Reviewed. WBC 6.1, Hgb 9.2, Hct 31.7, Platelets 276, Na 144, K 4.1, Cr 0.58, ESR 65. IMAGING: - CXR: No acute abnormality. Elevated right hemidiaphragm. - CT A/P: There is an ill defined probably multiloculated complex fluid collection tracking along the right retroperitoneum. The largest loculation appears to be along the subcapsular aspect of the right posterior hepatic segment measuring approximately 7.4 x 2.6 x 9 cm. The collection is inseparable from the right hemidiaphragm with extensive airspace consolidation in the adjacent right lower lobe. Caudally the collection extends to the right aspect of the pelvic rim. Gallbladder and bile ducts: Status post cholecystectomy. Pancreas: Normal. No ductal dilation. Spleen: Normal. No splenomegaly. Adrenals: Normal. No mass. Kidneys and ureters: Normal. No hydronephrosis. Stomach and bowel: Status post Heather-en-Y gastric bypass. Appendix: Status post appendectomy. Intraperitoneal space: No pneumoperitoneum or ascites. Retroperitoneal space: See above. Vasculature: Atherosclerotic disease. Lymph nodes: Unremarkable. No enlarged lymph nodes. Bladder: Unremarkable as visualized. Reproductive: Unremarkable as visualized. Bones/joints: Mild anterolisthesis of L4 on L5. Severe multilevel degenerative disc disease and facet hypertrophy. Stenosis of the spinal canal at L4-5. Soft tissues: Unremarkable. Other findings: Eventration of the right hemidiaphragm. IMPRESSION: There is an ill defined probably multiloculated complex fluid collection tracking along the right retroperitoneum. The largest loculation appears to be along the subcapsular aspect of the right posterior hepatic segment measuring approximately 7.4 x 2.6 x 9 cm. The collection is inseparable from the right hemidiaphragm with extensive airspace consolidation in the adjacent right lower lobe. Caudally the collection extends to the right aspect of the pelvic rim. MICROBIOLOGY: Please see below. ASSESSMENT: 63-year-old W with RA on Humira, s/p Heather-en-Y in 2005, recent history of abdominal abscesses treated in [place], s/p cholecystectomy and appendectomy after appendicitis with abscess, who presented with worsening right-sided back pain and found to a large liver multiloculated abscess on CT and s/p abscess drainage with two drains in place per IR and switched to linezolid/meropenem with pending fluid culture data. PLAN: 1. Liver abscess: as noted above on CT Antibiotic coverage with linezolid/meropenem, day #2. Consulted interventional radiology -->s/p US guided IR drainage on 10/05/2019, with two drains in place. ID on board, switched from dapto/erta to linezolid/hellen on 10/05/2019, appreciate recommendations. -follow up abscess fluid culture data 2. Sepsis with SIRS criteria - Tmax 103.7F, HR >90, RR>22 on admission with liver abscess as likely source of infection - s/p 2 L IV fluids in the ED. Lactic acid 2.4. Blood cultures negative to date - Antibiotic coverage as above for liver abscess 3. Rheumatoid arthritis. Has been off Humira since the beginning of August 29. Restless leg syndrome. Switch her home Requip admin time to 7PM per patient request DVT prophylaxis: TEDs and SCDs. Disposition: PCU. Has ongoing abscess drainage with 2 drains, on empiric antibiotics, pending culture results VS,Fishbone, I+O VS, Fishbone, I+O Laboratory Tests 10/06/19 09:42 Vital Signs Date Time Temp Pulse Resp B/P (MAP) Pulse Ox O2 Delivery O2 Flow Rate FiO2 10/06/19 12:00 97.6 74 20 138/62 (87) 100 Room Air I&O- Last 24 Hours up to 6 AM 10/06/19 06:00 Intake Total 872 ml Output Total 365 ml Balance 507 ml RICHARD TAVAREZ MD Oct 06, 2019 13:27
[2019-10-06] MEDS ORDERED: SODIUM CHLORIDE 0.9% INJ 10 ML SYR IV SCH (18:00)
[2019-10-06] MEDS: rOPINIRole 1MG TAB PO SCH (18:13)
--- NOTE | 2019-10-06 22:07 | ECGEPIP ---
[facility] - ED Test Date: 2019-10-04 Pat Name: SHELLIE VÁSQUEZ Department: Room: [place] [address] Gender: Female Vascular Surgery Physician: TC : 1955 Requested By: ZACH Ly Order Number: [id number] Reading MD: Darlene Rivera Measurements Intervals [place] Rate: 112 P: 19 NC: 125 QRS: -11 QRSD: 81 T: 29 QT: 304 QTc: 416 Interpretive Statements SINUS TACHYCARDIA ABNORMAL RHYTHM ECG LVH SIMILAR 01/04/18 Electronically Signed on 10-06-2019 22:07:26 EST by Darlene Rivera
[2019-10-07] MEDS: KETOROLAC 30 MG/ML VIAL (J1885) IV PRN ×3 (00:34→20:36)
[2019-10-07] MEDS: MEROPENEM INJ 1 GM in IV 1 EA IV SCH ×3 (03:51→17:45)
[2019-10-07] MEDS: LINEZOLID 600 MG in IV 1 EA IV SCH ×2 (03:52→15:21)
[2019-10-07] MEDS: ACETAMINOPHEN TAB 650MG DOSE (2X325MG) PO PRN (03:52)
[2019-10-07 04:00] VITALS: BP 123/67
[2019-10-07 05:28] LABS: HEMATOCRIT 31.2 % (36.0-47.0); HEMOGLOBIN 9.3 g/dl (12.0-15.5); MEAN CORPUSCULAR HEMOGLOBIN 24.1 pg (27.0-33.0); MEAN CORPUSCULAR HGB CONC 29.8 g/dl (32.0-36.5); MEAN CORPUSCULAR VOLUME 80.8 fl (80.0-96.0); PLATELET COUNT, AUTOMATED 290 10^3/uL (150-450); RED BLOOD COUNT 3.86 10^6/uL (4.00-5.40); WHITE BLOOD COUNT 7.4 10^3/uL (4.0-10.0)
[2019-10-07 05:51] LABS: ALBUMIN 2.2 GM/DL (3.2-5.2); ALT/SGPT 12 U/L (12-78); BILIRUBIN,TOTAL 0.2 MG/DL (0.2-1.0); BLOOD UREA NITROGEN 8 MG/DL (7-18); CALCIUM LEVEL 7.6 MG/DL (8.8-10.2); CARBON DIOXIDE LEVEL 25 MEQ/L (21-32); CHLORIDE LEVEL 110 MEQ/L (98-107); GLOMERULAR FILTRATION RATE > 60.0 (>45); GLUCOSE, FASTING 117 MG/DL (70-100); POTASSIUM SERUM 3.8 MEQ/L (3.5-5.1); SODIUM LEVEL 141 MEQ/L (136-145)
[2019-10-07] MEDS: SODIUM CHLORIDE 0.9% INJ 10 ML SYR IV SCH ×2 (06:34→17:45)
[2019-10-07 08:00] VITALS: BP 130/68
[2019-10-07] MEDS: VITAMIN D 1,000 INTERNATIONAL UNITS TABLET PO SCH (08:23)
[2019-10-07] MEDS: MAGNESIUM OXIDE 400 MG TAB (MAG-OX) PO SCH (08:23)
--- NOTE | 2019-10-07 10:44 | IPNPDOC ---
Text Note Date of Service The patient was seen on 10/07/19. NOTE SUBJECTIVE: -Feels well this morning. R flank well controlled with current pain regimen -Tolerating PO well -Drains continue to have minimal output, no leakage PHYSICAL EXAMINATION: VITAL SIGNS: See below GENERAL: Alert, comfortable, in no acute distress HEENT: NCAT, PERRLA, EOMI, MMM, anicteric. NECK: Supple, trachea midline, no lymphadenopathy, no JVD CARDIOVASCULAR: Regular rate and rhythm, normal S1 and S2. No murmurs, rubs, or gallops RESPIRATORY: Clear to auscultation bilaterally with equal air entry bilaterally. No wheezing, rhonchi, or rales. ABDOMEN: Obese, soft, mild tenderness to palpation of RUQ and R flank, nondistended, bowel sounds present, has two drains, no leakage and no surrounding erythema. Minimal output present in bags. EXTREMITIES: No cyanosis or edema. Pulses 2+ in bilateral upper and lower extremities SKIN: [place], warm, dry NEUROLOGIC: Alert and oriented 3 to person, place and time. Cranial nerves 2-12 grossly intact. No focal deficits appreciated. Moving all extremities spontaneously PSYCHIATRIC: Mood and affect appropriate LABORATORY DATA: Reviewed. WBC 7.4, Hgb 9.3, Hct 31.2, Platelets 290, Na 141, K 4.1, Cr 0.6 IMAGING: - CXR: No acute abnormality. Elevated right hemidiaphragm. - CT A/P: There is an ill defined probably multiloculated complex fluid collection tracking along the right retroperitoneum. The largest loculation appears to be along the subcapsular aspect of the right posterior hepatic segment measuring approximately 7.4 x 2.6 x 9 cm. The collection is inseparable from the right hemidiaphragm with extensive airspace consolidation in the adjacent right lower lobe. Caudally the collection extends to the right aspect of the pelvic rim. Gallbladder and bile ducts: Status post cholecystectomy. Pancreas: Normal. No ductal dilation. Spleen: Normal. No splenomegaly. Adrenals: Normal. No mass. Kidneys and ureters: Normal. No hydronephrosis. Stomach and bowel: Status post Heather-en-Y gastric bypass. Appendix: Status post appendectomy. Intraperitoneal space: No pneumoperitoneum or ascites. Retroperitoneal space: See above. Vasculature: Atherosclerotic disease. Lymph nodes: Unremarkable. No enlarged lymph nodes. Bladder: Unremarkable as visualized. Reproductive: Unremarkable as visualized. Bones/joints: Mild anterolisthesis of L4 on L5. Severe multilevel degenerative disc disease and facet hypertrophy. Stenosis of the spinal canal at L4-5. Soft tissues: Unremarkable. Other findings: Eventration of the right hemidiaphragm. IMPRESSION: There is an ill defined probably multiloculated complex fluid collection tracking along the right retroperitoneum. The largest loculation appears to be along the subcapsular aspect of the right posterior hepatic segment measuring approximately 7.4 x 2.6 x 9 cm. The collection is inseparable from the right hemidiaphragm with extensive airspace consolidation in the adjacent right lower lobe. Caudally the collection extends to the right aspect of the pelvic rim. MICROBIOLOGY: Please see below. ASSESSMENT: 63-year-old W with RA on Humira, s/p Heather-en-Y in 2005, recent history of abdominal abscesses treated in [place], s/p cholecystectomy and appendectomy after appendicitis with abscess, who presented with worsening right-sided back pain and found to a large liver multiloculated abscess on CT and s/p abscess drainage with two drains in place per IR and switched to linezolid/meropenem with pending fluid culture data. PLAN: 1. Liver abscess: as noted above on CT Antibiotic coverage with linezolid/meropenem, day #2. Consulted interventional radiology -->s/p US guided IR drainage on 10/05/2019, with two drains in place. ID on board, switched from dapto/erta to linezolid/maryuri on 10/05/2019, appreciate recommendations. -follow up abscess fluid culture data --> thus far gram stain with GPRs + many WBCs 2. Sepsis with SIRS criteria - Tmax 103.7F, HR >90, RR>22 on admission with liver abscess as likely source of infection - s/p 2 L IV fluids in the ED. Lactic acid 2.4. Blood cultures negative to date - Antibiotic coverage as above for liver abscess as above 3. Rheumatoid arthritis. Has been off Humira since the beginning of August 4. Restless leg syndrome. continue home Requip DVT prophylaxis: TEDs and SCDs. Disposition: Downgrade from PCU to [facility]. Has ongoing abscess drainage with 2 drains, on empiric antibiotics, pending culture results Bernardo ROMAN, I+O VS, Bernardo, I+O Laboratory Tests 10/06/19 09:42 10/07/19 05:15 Vital Signs Date Time Temp Pulse Resp B/P (MAP) Pulse Ox O2 Delivery O2 Flow Rate FiO2 10/07/19 08:00 97.4 80 16 130/68 (88) 98 Room Air I&O- Last 24 Hours up to 6 AM 10/07/19 06:00 Intake Total 1360 ml Output Total 1040 ml Balance 320 ml RICHARD TAVAREZ MD Oct 07, 2019 08:33
[2019-10-07 11:38] VITALS: BP 118/70
[2019-10-07 12:00] VITALS: BP 127/71
[2019-10-07 14:00] VITALS: BP 125/72
[2019-10-07] MEDS: rOPINIRole 1MG TAB PO SCH (17:45)
[2019-10-07] MEDS: SODIUM CHLORIDE 0.9% INJ 10 ML SYR IV PRN (20:37)
[2019-10-07 22:00] VITALS: BP 129/65
[2019-10-08] MEDS: MEROPENEM INJ 1 GM in IV 1 EA IV SCH ×2 (02:00→10:40)
[2019-10-08] MEDS: LINEZOLID 600 MG in IV 1 EA IV SCH ×2 (02:54→14:29)
[2019-10-08] MEDS: SODIUM CHLORIDE 0.9% INJ 10 ML SYR IV SCH ×2 (05:30→17:11)
[2019-10-08 06:00] VITALS: BP 126/65
[2019-10-08 06:30] LABS: HEMATOCRIT 32.3 % (36.0-47.0); HEMOGLOBIN 9.7 g/dl (12.0-15.5); MEAN CORPUSCULAR HEMOGLOBIN 24.1 pg (27.0-33.0); MEAN CORPUSCULAR VOLUME 80.3 fl (80.0-96.0); PLATELET COUNT, AUTOMATED 340 10^3/uL (150-450); RED BLOOD COUNT 4.02 10^6/uL (4.00-5.40); WHITE BLOOD COUNT 6.9 10^3/uL (4.0-10.0)
[2019-10-08 06:58] LABS: ALBUMIN 2.2 GM/DL (3.2-5.2); ALT/SGPT 10 U/L (12-78); BILIRUBIN,TOTAL 0.2 MG/DL (0.2-1.0); BLOOD UREA NITROGEN 10 MG/DL (7-18); CALCIUM LEVEL 8.1 MG/DL (8.8-10.2); CARBON DIOXIDE LEVEL 24 MEQ/L (21-32); CHLORIDE LEVEL 109 MEQ/L (98-107); CREATININE FOR GFR 0.62 MG/DL (0.55-1.30); GLOMERULAR FILTRATION RATE > 60.0 (>45); GLUCOSE, FASTING 143 MG/DL (70-100); POTASSIUM SERUM 3.7 MEQ/L (3.5-5.1); SODIUM LEVEL 142 MEQ/L (136-145); TOTAL PROTEIN 6.2 GM/DL (6.4-8.2)
[2019-10-08] MEDS: VITAMIN D 1,000 INTERNATIONAL UNITS TABLET PO SCH (08:39)
[2019-10-08] MEDS: MAGNESIUM OXIDE 400 MG TAB (MAG-OX) PO SCH (08:39)
[2019-10-08] MEDS: KETOROLAC 30 MG/ML VIAL (J1885) IV PRN (10:40)
--- NOTE | 2019-10-08 11:42 | IPNPDOC ---
Text Note Date of Service The patient was seen on 10/08/19. NOTE SUBJECTIVE: -Feels well this morning. R flank pain well controlled. -Tolerating PO well -Drains continue to have minimal output -No fever, chills, sweats PHYSICAL EXAMINATION: VITAL SIGNS: See below GENERAL: Alert, comfortable, in no acute distress HEENT: NCAT, PERRLA, EOMI, MMM, anicteric. NECK: Supple, trachea midline, no lymphadenopathy, no JVD CARDIOVASCULAR: Regular rate and rhythm, normal S1 and S2. No murmurs, rubs, or gallops RESPIRATORY: Clear to auscultation bilaterally with equal air entry bilaterally. No wheezing, rhonchi, or rales. ABDOMEN: Obese, soft, mild tenderness to palpation of RUQ and R flank, nondistended, bowel sounds present, has two drains, no leakage and no surrounding erythema. Minimal output present in bags. EXTREMITIES: No cyanosis or edema. Pulses 2+ in bilateral upper and lower extremities SKIN: [place], warm, dry NEUROLOGIC: Alert and oriented 3 to person, place and time. Cranial nerves 2-12 grossly intact. No focal deficits appreciated. Normal gait. PSYCHIATRIC: Mood and affect appropriate LABORATORY DATA: Reviewed. WBC 6.9, Hgb 9.7, Hct 32.3, Platelets 340, Na 142, K 3.7, Cr 0.62 IMAGING: - CXR: No acute abnormality. Elevated right hemidiaphragm. - CT A/P: There is an ill defined probably multiloculated complex fluid collection tracking along the right retroperitoneum. The largest loculation appears to be along the subcapsular aspect of the right posterior hepatic segment measuring approximately 7.4 x 2.6 x 9 cm. The collection is inseparable from the right hemidiaphragm with extensive airspace consolidation in the adjacent right lower lobe. Caudally the collection extends to the right aspect of the pelvic rim. Gallbladder and bile ducts: Status post cholecystectomy. Pancreas: Normal. No ductal dilation. Spleen: Normal. No splenomegaly. Adrenals: Normal. No mass. Kidneys and ureters: Normal. No hydronephrosis. Stomach and bowel: Status post Heather-en-Y gastric bypass. Appendix: Status post appendectomy. Intraperitoneal space: No pneumoperitoneum or ascites. Retroperitoneal space: See above. Vasculature: Atherosclerotic disease. Lymph nodes: Unremarkable. No enlarged lymph nodes. Bladder: Unremarkable as visualized. Reproductive: Unremarkable as visualized. Bones/joints: Mild anterolisthesis of L4 on L5. Severe multilevel degenerative disc disease and facet hypertrophy. Stenosis of the spinal canal at L4-5. Soft tissues: Unremarkable. Other findings: Eventration of the right hemidiaphragm. IMPRESSION: There is an ill defined probably multiloculated complex fluid collection tracking along the right retroperitoneum. The largest loculation appears to be along the subcapsular aspect of the right posterior hepatic segment measuring approximately 7.4 x 2.6 x 9 cm. The collection is inseparable from the right hemidiaphragm with extensive airspace consolidation in the adjacent right lower lobe. Caudally the collection extends to the right aspect of the pelvic rim. MICROBIOLOGY: Please see below. ASSESSMENT: 63-year-old W with RA on Humira, s/p Heather-en-Y in 2005, recent history of abdominal abscesses treated in [place], s/p cholecystectomy and appendectomy after appendicitis with abscess, who presented with worsening right-sided back pain and found to a large liver multiloculated abscess on CT and s/p abscess drainage with two drains in place per IR and switched to l inezolid/meropenem with pending fluid culture data. PLAN: 1. Liver abscess: as noted above on CT Antibiotic coverage with linezolid/meropenem, day #3. Consulted interventional radiology -->s/p US guided IR drainage on 10/05/2019, with two drains in place, called Dr. Raya about drains plan given minimal output and she recommended getting in touch with [facility] that placed them, will follow up with them. ID on board, switched from dapto/erta to linezolid/maryuri on 10/05/2019, apprec iate recommendations. -follow up abscess fluid culture data --> thus far gram stain with GPRs + many WBCs 2. Sepsis with SIRS criteria - Tmax 103.7F, HR >90, RR>22 on admission with liver abscess as likely source of infection - s/p 2 L IV fluids in the ED. Lactic acid 2.4. Blood cultures negative to date - Antibiotic coverage as above for liver abscess as above 3. Rheumatoid arthritis. Has been off Humira since the beginning of August 4. Restless leg syndrome. continue home Requip DVT prophylaxis: TEDs and SCDs. Disposition: Medsurg. Has ongoing abscess drainage with 2 drains, on empiric antibiotics, pending culture results. VS,Fishbone, I+O VS, Fishbone, I+O Laboratory Tests 10/08/19 06:15 Vital Signs Date Time Temp Pulse Resp B/P (MAP) Pulse Ox O2 Delivery O2 Flow Rate FiO2 10/08/19 06:00 98.7 82 18 126/65 (85) 96 Room Air I&O- Last 24 Hours up to 6 AM 10/08/19 06:00 Intake Total 1440 ml Output Total 1350 ml Balance 90 ml RICHARD TAVAREZ MD Oct 08, 2019 08:13
[2019-10-08 14:00] VITALS: BP 152/84
[2019-10-08] MEDS ORDERED: ERTAPENEM SODIUM 1 GM in NS MINI-BAG PLUS 50 ML IV SCH (15:45)
[2019-10-08] MEDS: rOPINIRole 1MG TAB PO SCH (18:04)
--- NOTE | 2019-10-08 20:37 | IPN ---
DATE: 10/08/2019 Bhumi feels much better. She still has a cough and some right flank pain but much improved. She has no nausea, vomiting or diarrhea. No fever or chills or night sweats. She has some drainage in the right upper quadrant drains. She had two drains placed last week on Tuesday with one abscess drained about 25 mL, the other 30 mL, a total of 55 mL plus. Cultures from the abscess cavities had Morganella Morgagni and Citrobacter fungi, both susceptible to carbapenems, only resistant to cefazolin, ampicillin, and sulbactam. LABORATORY DATA: White count is 6.9, hemoglobin 9.7, hematocrit 32.3, platelets 340. ESR 65. Sodium 142, potassium 3.7, chloride 109, bicarbonate 29, BUN 10, creatinine 0.62, glucose 143, calcium 8.1, bilirubin 0.2, AST 10, ALT 10, alkaline phosphatase 66, CRP 5.39. PHYSICAL EXAMINATION: Temperature is 97.6, pulse 85, respirations 18, blood pressure 152/84, oxygen saturation 97% on room air. Her last temperature was 48 hours ago. Heart: Normal S1, S2, no murmurs, rubs or gallops. Lungs are clear. No wheezes or rhonchi. Mild right CVA tenderness where the drain is. Abdomen: Obese, soft, nontender. No hepatosplenomegaly. Extremities: Trace edema. No clubbing or cyanosis. Oropharynx is clear with no thrush, no lesions. IMPRESSION: 1. Complicated intra-abdominal abscess with Morganella and Citrobacter. The patient is doing much better. Previously at the [facility], the patient had a history of VRE but all cultures are negative and therefore linezolid will be discontinued. 2. Sepsis with ALEXA criteria has resolved. 3. History of rheumatoid arthritis. The patient will need to be off Humira until antibiotics are discontinued for the next at least 6 weeks. PLAN: 1- Discontinue IV linezolid and IV meropenem 2-Switch to IV ertapenem 1 gram every 24 hours. 3- Consult [facility] or [facility] for home IV antibiotic for a total of 6 weeks with anticipated end of therapy being 11/16/2019. 4- Please consult surgery to followup on drains and when they need to be removed. She probably needs those drains flushed as they are not currently draining much but probably some of that debris. 5- Followup at infectious disease clinic in 2 weeks. I have written the prescriptions for home IV antibiotics. She will need blood work done weekly including CBC, CMP, CRP, sedimentation rate. MTDD
[2019-10-08 22:00] VITALS: BP 136/76
[2019-10-09 06:00] VITALS: BP 130/70
[2019-10-09] MEDS: SODIUM CHLORIDE 0.9% INJ 10 ML SYR IV SCH ×2 (06:01→17:16)
[2019-10-09] MEDS: SODIUM CHLORIDE 0.9% INJ 10 ML SYR IV PRN ×2 (06:02→09:05)
[2019-10-09 07:03] LABS: HEMATOCRIT 32.3 % (36.0-47.0); HEMOGLOBIN 9.5 g/dl (12.0-15.5); MEAN CORPUSCULAR HEMOGLOBIN 24.1 pg (27.0-33.0); MEAN CORPUSCULAR HGB CONC 29.4 g/dl (32.0-36.5); MEAN CORPUSCULAR VOLUME 81.8 fl (80.0-96.0); PLATELET COUNT, AUTOMATED 287 10^3/uL (150-450); RED BLOOD COUNT 3.95 10^6/uL (4.00-5.40); WHITE BLOOD COUNT 5.5 10^3/uL (4.0-10.0)
[2019-10-09 07:25] LABS: ERYTHROCYTE SEDIMENTATION RATE 54 mm/hr (0-30)
[2019-10-09 07:32] LABS: ALBUMIN 2.1 GM/DL (3.2-5.2); ALT/SGPT 12 U/L (12-78); BILIRUBIN,TOTAL 0.4 MG/DL (0.2-1.0); BLOOD UREA NITROGEN 7 MG/DL (7-18); C REACTIVE PROTEIN QUANTITATIV 3.34 MG/DL (0.00-0.30); CALCIUM LEVEL 8.3 MG/DL (8.8-10.2); CARBON DIOXIDE LEVEL 27 MEQ/L (21-32); CHLORIDE LEVEL 110 MEQ/L (98-107); CREATININE FOR GFR 0.65 MG/DL (0.55-1.30); GLOMERULAR FILTRATION RATE > 60.0 (>45); GLUCOSE, FASTING 105 MG/DL (70-100); POTASSIUM SERUM 3.7 MEQ/L (3.5-5.1); SODIUM LEVEL 144 MEQ/L (136-145); TOTAL PROTEIN 5.8 GM/DL (6.4-8.2)
[2019-10-09] MEDS: VITAMIN D 1,000 INTERNATIONAL UNITS TABLET PO SCH (09:03)
[2019-10-09] MEDS: MAGNESIUM OXIDE 400 MG TAB (MAG-OX) PO SCH (09:03)
[2019-10-09] MEDS: KETOROLAC 30 MG/ML VIAL (J1885) IV PRN (09:04)
[2019-10-09 11:18] VITALS: BP 142/82
--- NOTE | 2019-10-09 12:39 | IPNPDOC ---
Text Note Date of Service The patient was seen on 10/09/19. NOTE SUBJECTIVE: -Feels well this morning. R flank pain well controlled. -Tolerating PO well -Drains continue to have minimal output though still thick and creamy. -No fever, chills, sweats PHYSICAL EXAMINATION: VITAL SIGNS: See below GENERAL: Alert, comfortable, in no acute distress HEENT: NCAT, PERRLA, EOMI, MMM, anicteric. NECK: Supple, trachea midline, no lymphadenopathy, no JVD CARDIOVASCULAR: Regular rate and rhythm, normal S1 and S2. No murmurs, rubs, or gallops RESPIRATORY: Clear to auscultation bilaterally with equal air entry bilaterally. No wheezing, rhonchi, or rales. ABDOMEN: Obese, soft, mild tenderness to palpation of RUQ and R flank, nondistended, bowel sounds present, has two drains, no leakage and no surrounding erythema. Minimal output present in bags. EXTREMITIES: No cyanosis or edema. Pulses 2+ in bilateral upper and lower extremities SKIN: [place], warm, dry NEUROLOGIC: Alert and oriented 3 to person, place and time. Cranial nerves 2-12 grossly intact. No focal deficits appreciated. Normal gait. PSYCHIATRIC: Mood and affect appropriate LABORATORY DATA: Reviewed. WBC 6.9, Hgb 9.7, Hct 32.3, Platelets 340, Na 142, K 3.7, Cr 0.62 IMAGING: - CXR: No acute abnormality. Elevated right hemidiaphragm. - CT A/P: There is an ill defined probably multiloculated complex fluid collection tracking along the right retroperitoneum. The largest loculation appears to be along the subcapsular aspect of the right posterior hepatic segment measuring a pproximately 7.4 x 2.6 x 9 cm. The collection is inseparable from the right hemidiaphragm with extensive airspace consolidation in the adjacent right lower lobe. Caudally the collection extends to the right aspect of the pelvic rim. Gallbladder and bile ducts: Status post cholecystectomy. Pancreas: Normal. No ductal dilation. Spleen: Normal. No splenomegaly. Adrenals: Normal. No mass. Kidneys and ureters: Normal. No hydronephrosis. Stomach and bowel: Status post Heather-en-Y gastric bypass. Appendix: Status post appendectomy. Intraperitoneal space: No pneumoperitoneum or ascites. Retroperitoneal space: See above. Vasculature: Atherosclerotic disease. Lymph nodes: Unremarkable. No enlarged lymph nodes. Bladder: Unremarkable as visualized. Reproductive: Unremarkable as visualized. Bones/joints: Mild anterolisthesis of L4 on L5. Severe multilevel degenerative disc disease and facet hypertrophy. Stenosis of the spinal canal at L4-5. Soft tissues: Unremarkable. Other findings: Eventration of the right hemidiaphragm. IMPRESSION: There is an ill defined probably multiloculated complex fluid collection tracking along the right retroperitoneum. The largest loculation appears to be along the subcapsular aspect of the right posterior hepatic segment measuring approximately 7.4 x 2.6 x 9 cm. The collection is inseparable from the right hemidiaphragm with extensive airspace consolidation in the adjacent right lower lobe. Caudally the collection extends to the right aspect of the pelvic rim. MICROBIOLOGY: Please see below. ASSESSMENT: 63-year-old W with RA on Humira, s/p Heather-en-Y in 2005, recent history of abdominal abscesses treated in [place], s/p cholecystectomy and appendectomy after appendicitis with abscess, who presented with worsening right-sided back pain and found to a large liver multiloculated abscess on CT and s/p abscess drainage with two drains in place per IR. Currently on Ertapenem . Liver abscess and retroperitoneal abscess near the right pelvic rim. : as noted above on CT -possibly residual infection from perforated appendix in April 2019 with appendicular abscess and drains then. - growing morganella, citrobacter, e coli. Antibiotic coverage with Ertapenem. Consulted interventional radiology -->s/p US guided IR drainage on 10/05/2019, with two drains in place. Still draining milky , creamish material. will dc with drains in place. Follow up Dr Staton in 1 week. ID on board will need 8 weeks of antibiotics. -follow up abscess fluid culture data --> thus far gram stain with GPRs + many WBCs Sepsis with SIRS criteria - Tmax 103.7F, HR >90, RR>22 on admission with liver abscess as likely source of infection - s/p 2 L IV fluids in the ED. Lactic acid 2.4. Blood cultures negative to date - Antibiotic coverage as above for liver abscess as above Rheumatoid arthritis. Has been off Humira since the beginning of August Restless leg syndrome. continue home Requip Morbid obesity s/p gastric bypass surgery. DVT prophylaxis: TEDs and SCDs. Disposition: Home in 24 to 48 hours with home antibiotic set up. VS,Fishbone, I+O VS, Fishbone, I+O Laboratory Tests 10/09/19 06:20 Vital Signs Date Time Temp Pulse Resp B/P (MAP) Pulse Ox O2 Delivery O2 Flow Rate FiO2 10/09/19 11:18 97.0 71 18 142/82 (102) 96 Room Air I&O- Last 24 Hours up to 6 AM0 10/09/19 06:00 Intake Total 660 ml Output Total 1430 ml Balance -770 ml DONNELL HALEY MD Oct 09, 2019 12:39
[2019-10-09 14:30] VITALS: BP 110/55
[2019-10-09] MEDS ORDERED: ERTAPENEM SODIUM 1 GM in NS MINI-BAG PLUS 50 ML IV SCH (17:00)
[2019-10-09] MEDS: rOPINIRole 1MG TAB PO SCH (18:12)
[2019-10-09 20:00] VITALS: BP 110/59
--- NOTE | 2019-10-09 20:51 | IPN ---
DATE: 10/09/2019 Mrs. Linda has no complaints. She is anxious to go home. She has had no fever or chills. She states her cough has improved slightly. She has a small blister in the right lower quadrant, not painful. MEDICATIONS: Invanz 1 gram IV every 24 hours, currently day #2. No side effects. No nausea, vomiting or diarrhea. LABORATORY DATA: White count is 5.5, hemoglobin 9.5, hematocrit 32.3, platelets 287, sedimentation rate is 54, down from 65. Sodium 144, potassium 3.7, chloride 110, bicarbonate 27, BUN 7, creatinine 0.65, glucose 105, calcium 8.3, bilirubin 0.4, ALT 13, ALT 12, alkaline phosphatase 58, CRP 3.34 down from 5.39. Abscess cultures were positive for Morganella morganii and Citrobacter freundii on one and the other one had Escherichia (E) coli, intermediate to ampicillin. On physical exam, temperature is 97.6, pulse 81, respirations 18, blood pressure 110/55, oxygen saturation (O2 sat) 97% on room air. Heart: Normal S1, S2. No murmurs, rubs or gallops. Lungs are clear. No wheezes, rales or rhonchi. Abdomen: Slightly tender in the right upper quadrant where there is a drain and slight right costovertebral angle (CVA) tenderness where the other drain is placed. Both have still some purulent discharge but less than 10 mL. Extremities: Trace edema bilaterally. No clubbing or cyanosis. Skin: Has a small horizontal blister along the right lower quadrant, probably a pressure sore from the drain. IMPRESSION: 1. Multiloculated intra-abdominal abscess, probably complication of ruptured appendix versus gallbladder surgery. The patient has three different gram-negative pathogens, including E-coli, Citrobacter and Morganella; all should be covered by ertapenem. 2. History of gastric bypass. 3. History of laparoscopic cholecystectomy and gallstone pancreatitis. PLAN: Continue IV Invanz for a total of 6 weeks, currently day number . She will follow up in my office in 2-3 weeks. She will have blood work done weekly including complete blood count (CBC), C-reactive protein (CRP), sedimentation rate. Her infusion will be through IV through [facility]. She will follow up with Dr. Staton for removal of the drain when appropriate, and will need a CT abdomen and pelvis in the next 2 to 4 weeks. MTDD
[2019-10-10] MEDS: ACETAMINOPHEN TAB 650MG DOSE (2X325MG) PO PRN (05:52)
[2019-10-10] MEDS: SODIUM CHLORIDE 0.9% INJ 10 ML SYR IV SCH (05:52)
[2019-10-10 06:00] VITALS: BP 113/65
[2019-10-10 07:03] LABS: HEMATOCRIT 31.9 % (36.0-47.0); HEMOGLOBIN 9.3 g/dl (12.0-15.5); MEAN CORPUSCULAR HEMOGLOBIN 23.8 pg (27.0-33.0); MEAN CORPUSCULAR HGB CONC 29.2 g/dl (32.0-36.5); MEAN CORPUSCULAR VOLUME 81.6 fl (80.0-96.0); PLATELET COUNT, AUTOMATED 275 10^3/uL (150-450); RED BLOOD COUNT 3.91 10^6/uL (4.00-5.40); WHITE BLOOD COUNT 5.2 10^3/uL (4.0-10.0)
[2019-10-10 07:33] LABS: ALBUMIN 2.1 GM/DL (3.2-5.2); ALT/SGPT 14 U/L (12-78); BILIRUBIN,TOTAL 0.3 MG/DL (0.2-1.0); BLOOD UREA NITROGEN 9 MG/DL (7-18); CALCIUM LEVEL 8.6 MG/DL (8.8-10.2); CARBON DIOXIDE LEVEL 29 MEQ/L (21-32); CHLORIDE LEVEL 106 MEQ/L (98-107); GLOMERULAR FILTRATION RATE > 60.0 (>45); GLUCOSE, FASTING 88 MG/DL (70-100); SODIUM LEVEL 140 MEQ/L (136-145)
[2019-10-10] MEDS: MAGNESIUM OXIDE 400 MG TAB (MAG-OX) PO SCH (09:59)
[2019-10-10] MEDS: VITAMIN D 1,000 INTERNATIONAL UNITS TABLET PO SCH (09:59)
[2019-10-10] MEDS ORDERED: ERTAPENEM SODIUM 1 GM in NS MINI-BAG PLUS 50 ML IV SCH (10:00)
--- NOTE | 2019-10-11 16:08 | DS.PDOC ---
Discharge Summary General Date of Admission Oct 04, 2019 at 21:09 Date of Discharge 10/11/19 Discharge Summary PROCEDURES PERFORMED DURING STAY: Intra abdominal drain placement x 2 one in liver abscess one in retroperitoneal collection near the right pelvic rim. DISCHARGE DIAGNOSES: Liver abscess and retroperitoneal abscess near right pelvic rim Sepsis from the above SECONDARY DIAGNOSIS: Morbid obesity s/p gastric bypass surgery, RA on Humira, s/p Heather-en-Y in 2005, recent history of abdominal abscesses after appendicular rupture and append icular abscess, h/o cholecystectomy in 2017, Restless leg syndrome COMPLICATIONS/CHIEF COMPLAINT: Liver Abscess, Sepsis. HISTORY OF PRESENT ILLNESS: See history and physical HOSPITAL COURSE: 63-year-old W with RA on Humira, s/p Heatehr-en-Y in 2005, recent history of abdominal abscesses treated in [place], s/p cholecystectomy and appendectomy after appendicitis with abscess, who presented with worsening right-sided back pain and found to a large liver multiloculated abscess on CT and s/p abscess drainage with two drains in place per IR. Currently on Ertapenem . Liver abscess and retroperitoneal abscess near the right pelvic rim possibly residual infection from perforated appendix in April 2019 with appendicular abscess and drains then. growing morganella, citrobacter, e coli. Antibiotic coverage with Ertapenem. s/p US guided IR drainage on 10/05/2019, with two drains in place. Still draining milky , creamish material. will dc with drains in place. Follow up Dr Staton in 1 week. ID on board will need 8 weeks of antibiotics Last day of antibiotics 11/23/19 Sepsis with SIRS criteria due to liver abscess. Antibiotic coverage as above for liver abscess as above Rheumatoid arthritis. Has been off Humira since the beginning of August should not be restarted till her infection is treated completely. Restless leg syndrome. continue home Requip Morbid obesity s/p gastric bypass surgery. Disposition: Home in 24 to 48 hours with home antibiotic set up. DISCHARGE MEDICATIONS: Please see below. ALLERGIES: Please see below. PHYSICAL EXAMINATION ON DISCHARGE: VITAL SIGNS: Please see below. GENERAL: Alert, comfortable, in no acute distress HEENT: NCAT, PERRLA, EOMI, MMM, anicteric. NECK: Supple, trachea midline, no lymphadenopathy, no JVD CARDIOVASCULAR: Regular rate and rhythm, normal S1 and S2. No murmurs, rubs, or gallops RESPIRATORY: Clear to auscultation bilaterally with equal air entry bilaterally. No wheezing, rhonchi, or rales. ABDOMEN: Obese, soft, mild tenderness to palpation of RUQ and R flank, nondist ended, bowel sounds present, has two drains, no leakage and no surrounding erythema. Minimal output present in bags. EXTREMITIES: No cyanosis or edema. Pulses 2+ in bilateral upper and lower extremities SKIN: [place], warm, dry NEUROLOGIC: Alert and oriented 3 to person, place and time. Cranial nerves 2-12 grossly intact. No focal deficits appreciated. Normal gait. PSYCHIATRIC: Mood and affect appropriate LABORATORY DATA: Please see below. IMAGING: - CXR: No acute abnormality. Elevated right hemidiaphragm. - CT A/P: There is an ill defined probably multiloculated complex fluid collection tracking along the right retroperitoneum. The largest loculation appears to be along the subcapsular aspect of the right posterior hepatic segment measuring approximately 7.4 x 2.6 x 9 cm. The collection is inseparable from the right hemidiaphragm with extensive airspace consolidation in the adjacent right lower lobe. Caudally the collection extends to the right aspect of the pelvic rim. Gallbladder and bile ducts: Status post cholecystectomy. Pancreas: Normal. No ductal dilation. Spleen: Normal. No splenomegaly. Adrenals: Normal. No mass. Kidneys and ureters: Normal. No hydronephrosis. Stomach and bowel: Status post Heather-en-Y gastric bypass. Appendix: Status post appendectomy. Intraperitoneal space: No pneumoperitoneum or ascites. Retroperitoneal space: See above. Vasculature: Atherosclerotic disease. Lymph nodes: Unremarkable. No enlarged lymph nodes. Bladder: Unremarkable as visualized. Reproductive: Unremarkable as visualized. Bones/joints: Mild anterolisthesis of L4 on L5. Severe multilevel degenerative disc disease and facet hypertrophy. Stenosis of the spinal canal at L4-5. Soft tissues: Unremarkable. Other findings: Eventration of the right hemidiaphragm. IMPRESSION: There is an ill defined probably multiloculated complex fluid collection tracking along the right retroperitoneum. The largest loculation appears to be along the subcapsular aspect of the right posterior hepatic segment measuring approximately 7.4 x 2.6 x 9 cm. The collection is inseparable from the right hemidiaphragm with extensive airspace consolidation in the adjacent right lower lobe. Caudally the collection extends to the right aspect of the pelvic rim. ACTIVITY: [As tolerated]. DIET: As tolerated DISPOSITION: 06 Home Health Service. DISCHARGE INSTRUCTIONS: Dr Loredo in [address] Staton in 1 week for assessment of the abdominal drain. PMD in 1 week DISCHARGE CONDITION: [Stable]. TIME SPENT ON DISCHARGE: 35 minutes. Vital Signs/I&Os Vital Signs Date Time Temp Pulse Resp B/P (MAP) Pulse Ox O2 Delivery O2 Flow Rate FiO2 10/10/19 06:00 97.0 69 16 113/65 (81) 96 Room Air I&O- Last 24 Hours up to 6 AM 10/11/19 06:00 Intake Total 900 ml Output Total 30 ml Balance 870 ml Laboratory Data CBC/BMP Item Value Date Time White Blood Count 5.2 10^3/uL 10/10/19 0646 Red Blood Count 3.91 10^6/uL L 10/10/19 0646 Hemoglobin 9.3 g/dl L 10/10/19 0646 Hematocrit 31.9 % L 10/10/19 0646 Mean Corpuscular Volume 81.6 fl 10/10/19 0646 Mean Corpuscular Hemoglobin 23.8 pg L 10/10/19 0646 Mean Corpuscular Hemoglobin Concent 29.2 g/dl L 10/10/19 0646 Red Cell Distribution Width 15.8 % H 10/10/19 0646 Platelet Count 275 10^3/uL 10/10/19 0646 Sodium Level 140 MEQ/L 10/10/19 0646 Potassium Level 4.0 MEQ/L 10/10/19 0646 Chloride Level 106 MEQ/L 10/10/19 0646 Carbon Dioxide Level 29 MEQ/L 10/10/19 0646 Anion Gap 5 MEQ/L L 10/10/19 0646 Blood Urea Nitrogen 9 MG/DL 10/10/19 0646 Creatinine 0.50 MG/DL L 10/10/19 0646 Glomerular Filtration Rate > 60.0 10/10/19 0646 Fasting Glucose 88 MG/DL 10/10/19 0646 Calcium Level 8.6 MG/DL L 10/10/19 0646 Total Bilirubin 0.3 MG/DL 10/10/19 0646 Aspartate Amino Transf (AST/SGOT) 18 U/L 10/10/19 0646 Alanine Aminotransferase (ALT/SGPT) 14 U/L 10/10/19 0646 Alkaline Phosphatase 60 U/L 10/10/19 0646 Total Protein 6.0 GM/DL L 10/10/19 0646 Albumin 2.1 GM/DL L 10/10/19 0646 Albumin/Globulin Ratio 0.54 L 10/10/19 0646 C-Reactive Protein, Quantitative 3.34 MG/DL H 10/09/19 0620 Microbiology Microbiology 10/05/19 Anaerobic Culture - Final, Complete 10/05/19 Gram Stain - Final, Complete 10/05/19 Body Fluid Culture - Final, Complete Morganella Morganii Ssp Samuel Citrobacter Freundii 10/05/19 Gram Stain - Final, Complete 10/05/19 Body Fluid Culture - Final, Complete Morganella Morganii Ssp Samuel Escherichia Coli 10/05/19 Anaerobic Culture - Final, Complete 10/04/19 Respiratory Virus Panel (PCR) (MICHELLE) - Final, Complete 10/04/19 Blood Culture - Final, Complete NO GROWTH AFTER 5 DAYS 10/04/19 Blood Culture - Final, Complete NO GROWTH AFTER 5 DAYS Discharge Medications Scheduled Adalimumab (Humira) 40 Mg/0.8 Ml Kit, 40 MG SC Q2WK, (Reported) INJECTED SC INTO ABDOMEN: ON HOLD. LAST DOSE WAS WEEK August Cholecalciferol (Vitamin D3) (Vitamin D3) 1,000 Unit Tablet, 1,000 UNIT PO DAILY, (Reported) Magnesium Oxide (Magnesium Oxide) 400 Mg Tablet, 400 MG PO DAILY, (Reported) Ropinirole HCl (Ropinirole HCl) 0.5 Mg Tab, 1.5 MG PO QHS, (Reported) Scheduled PRN Polyvinyl Alcohol (Artificial Tears) 15 Ml Drops, 1 DROP OU QID PRN for DRY EYES, (Reported) Allergies Coded Allergies: Cephalosporins (Verified Allergy, Intermediate, CECLOR- RASH AND HIVES, 01/29/19) Sulfa (Sulfonamide Antibiotics) (Verified Allergy, Intermediate, RASH AND HIVES, 01/29/19) dicloxacillin (Verified Allergy, Intermediate, HIVES (ZOSYN GIVEN WITH NO ISSUE), 01/29/19) erythromycin base (Verified Allergy, Intermediate, RASH AND HIVES, 01/29/19) Quinolones (Verified Allergy, Unknown, 01/29/19) hydrocodone (Verified Allergy, Unknown, 01/29/19) DONNELL HALEY MD Oct 11, 2019 16:08
== END 2019-10-10 13:35 | disposition home health service (06) | DRG 720 ==
LOC: M ED 17:32 → M ED INP 21:09 → ENRESERVDT 21:34 → ENRESERVTM 21:34 → M PCU 22:22 → M MSPAV 10-07 12:01 → M MS4PR 10-09 11:04
PROVIDERS: ADMIT Internal Medicine; ATTEND Internal Medicine Nephrology
PROC: 0F9130Z Drainage of Right Lobe Liver with Drainage Device, Percutaneous Approach (ICD-10-PCS; principal; 2019-10-05 13:00)
DX: A41.9 Sepsis, unspecified organism (principal); K75.0 Abscess of liver; M06.9 Rheumatoid arthritis, unspecified; G25.81 Restless legs syndrome; E66.01 Morbid (severe) obesity due to excess calories; Z79.899 Other long term (current) drug therapy; Z88.2 Allergy status to sulfonamides; Z88.8 Allergy status to other drugs, medicaments and biological substances; Z96.651 Presence of right artificial knee joint; Z96.652 Presence of left artificial knee joint

== ENCOUNTER → 2019-10-16 | Outpatient (REF) | payer BC ==
[~2019-10-16] MED LIST changes: +ARTIDRO2 OU; +MAGN400T3 PO; +VITA100066 PO
[2019-10-16 14:17] LABS: HEMATOCRIT 35.5 % (36.0-47.0); HEMOGLOBIN 10.4 g/dl (12.0-15.5); MEAN CORPUSCULAR HEMOGLOBIN 24.2 pg (27.0-33.0); MEAN CORPUSCULAR HGB CONC 29.3 g/dl (32.0-36.5); MEAN CORPUSCULAR VOLUME 82.6 fl (80.0-96.0); PLATELET COUNT, AUTOMATED 274 10^3/uL (150-450); WHITE BLOOD COUNT 6.3 10^3/uL (4.0-10.0)
[2019-10-16 14:48] LABS: ALBUMIN 2.7 GM/DL (3.2-5.2); ALT/SGPT 24 U/L (12-78); BILIRUBIN,TOTAL 0.2 MG/DL (0.2-1.0); BLOOD UREA NITROGEN 12 MG/DL (7-18); C REACTIVE PROTEIN QUANTITATIV 0.64 MG/DL (0.00-0.30); CALCIUM LEVEL 8.2 MG/DL (8.8-10.2); CARBON DIOXIDE LEVEL 27 MEQ/L (21-32); CHLORIDE LEVEL 110 MEQ/L (98-107); GLOMERULAR FILTRATION RATE > 60.0 (>45); GLUCOSE, FASTING 96 MG/DL (70-100); SODIUM LEVEL 143 MEQ/L (136-145); TOTAL PROTEIN 6.2 GM/DL (6.4-8.2)
[2019-10-16 14:53] LABS: ERYTHROCYTE SEDIMENTATION RATE 48 mm/hr (0-30)
== END ==
LOC: M SHH 13:56
PROVIDERS: ATTEND Internal Medicine Infectious Disease
DX: A41.9 Sepsis, unspecified organism (principal)

== ENCOUNTER 2019-10-17 11:46 | Emergency (ER) | payer BC ==
[~2019-10-17] VITALS: Ht 162.6 cm; Wt 93.6 kg
[2019-10-17 15:31] VITALS: BP 140/84
== END 2019-10-17 15:35 | disposition home or self-care (01) ==
LOC: M ED 11:46
DX: T82.898A Other specified complication of vascular prosthetic devices, implants and grafts, initial encounter (principal); Z88.0 Allergy status to penicillin; Z88.1 Allergy status to other antibiotic agents; Z88.2 Allergy status to sulfonamides; Z88.5 Allergy status to narcotic agent; Z79.899 Other long term (current) drug therapy

== ENCOUNTER → 2019-10-18 | Outpatient (CLI) | payer BC ==
[~2019-10-18] MED LIST changes: +LIDOCAINE 1% MDV 20ML VIAL As Ordered ONE
[2019-10-18 17:25] VITALS: BP 147/74
--- NOTE | 2019-10-18 19:01 | REP ---
PICC line exchange under fluoroscopic guidance. The procedure was performed by MEGHA Schaefer, under the direct supervision of Dr. Mayberry. The risks and benefits of the procedure were explained to the patient and informed consent was obtained both verbally and written. Directly prior to the start of the procedure, a formal timeout was completed in the procedure room. The skin was prepped and draped in the sterile fashion. 6 ml 1% lidocaine 10 mg/ml was used as a local anesthetic. Using fluoroscopic guidance a wire was inserted into the indwelling PICC catheter and advanced to the SVC. The indwelling PICC line was removed, and a 4.5 Tristanian dilator and peel-away sheath was inserted over the guidewire. A 4.5 Tristanian single lumen catheter was cut to the length of 35 cm. The dilator was removed and the catheter was inserted over the guide wire with the tip ending in the SVC. The peel-away sheath was removed and the catheter was flushed with heparinized saline as per hospital protocol. The catheter was affixed to the skin and a sterile dressing was applied. The patient tolerated the procedure well and there were no immediate complications. 0.1 minutes of fluoroscopy time was utilized for this procedure. Some fluoroscopic images are performed with last image hold technology. These images require no additional radiation. Reviewed by MEGHA Mcfadden 10/18/2019 06:32 P Electronically Signed by Javad Mayberry MD 10/18/2019 06:53 P
== END ==
LOC: M IRPRO 15:20
PROVIDERS: ATTEND Physician Assistant Medical
DX: T82.594A Other mechanical complication of infusion catheter, initial encounter (principal); Z45.2 Encounter for adjustment and management of vascular access device
CPT/HCPCS: 36584; C1751

== ENCOUNTER → 2019-10-23 | Outpatient (REF) | payer BC ==
[~2019-10-23] MED LIST changes: -LIDOCAINE 1% MDV 20ML VIAL As Ordered ONE
[2019-10-23 12:17] LABS: HEMATOCRIT 31.2 % (36.0-47.0); HEMOGLOBIN 9.5 g/dl (12.0-15.5); MEAN CORPUSCULAR HEMOGLOBIN 24.7 pg (27.0-33.0); MEAN CORPUSCULAR HGB CONC 30.4 g/dl (32.0-36.5); PLATELET COUNT, AUTOMATED 253 10^3/uL (150-450); RED BLOOD COUNT 3.85 10^6/uL (4.00-5.40); WHITE BLOOD COUNT 4.9 10^3/uL (4.0-10.0)
[2019-10-23 12:40] LABS: ALBUMIN 2.6 GM/DL (3.2-5.2); ALT/SGPT 29 U/L (12-78); BILIRUBIN,TOTAL 0.3 MG/DL (0.2-1.0); BLOOD UREA NITROGEN 13 MG/DL (7-18); CALCIUM LEVEL 7.9 MG/DL (8.8-10.2); CARBON DIOXIDE LEVEL 30 MEQ/L (21-32); CHLORIDE LEVEL 110 MEQ/L (98-107); CREATININE FOR GFR 0.54 MG/DL (0.55-1.30); GLOMERULAR FILTRATION RATE > 60.0 (>45); GLUCOSE, FASTING 98 MG/DL (70-100); POTASSIUM SERUM 3.8 MEQ/L (3.5-5.1); SODIUM LEVEL 143 MEQ/L (136-145)
[2019-10-23 12:59] LABS: ERYTHROCYTE SEDIMENTATION RATE 52 mm/hr (0-30)
== END ==
LOC: M SHH 11:37
PROVIDERS: ATTEND Internal Medicine Infectious Disease
DX: K75.0 Abscess of liver (principal); A49.9 Bacterial infection, unspecified; Z90.49 Acquired absence of other specified parts of digestive tract

== ENCOUNTER → 2019-10-30 | Outpatient (REF) | payer BC ==
[2019-10-30 15:39] LABS: HEMATOCRIT 35.1 % (36.0-47.0); HEMOGLOBIN 10.1 g/dl (12.0-15.5); MEAN CORPUSCULAR HEMOGLOBIN 23.9 pg (27.0-33.0); MEAN CORPUSCULAR HGB CONC 28.8 g/dl (32.0-36.5); PLATELET COUNT, AUTOMATED 218 10^3/uL (150-450); RED BLOOD COUNT 4.23 10^6/uL (4.00-5.40); WHITE BLOOD COUNT 4.9 10^3/uL (4.0-10.0)
[2019-10-30 16:04] LABS: ALT/SGPT 27 U/L (12-78); BILIRUBIN,TOTAL < 0.1 MG/DL (0.2-1.0); BLOOD UREA NITROGEN 17 MG/DL (7-18); CALCIUM LEVEL 8.6 MG/DL (8.8-10.2); CARBON DIOXIDE LEVEL 29 MEQ/L (21-32); CHLORIDE LEVEL 110 MEQ/L (98-107); CREATININE FOR GFR 0.56 MG/DL (0.55-1.30); GLOMERULAR FILTRATION RATE > 60.0 (>45); GLUCOSE, FASTING 105 MG/DL (70-100); POTASSIUM SERUM 4.4 MEQ/L (3.5-5.1); SODIUM LEVEL 142 MEQ/L (136-145)
[2019-10-30 16:05] LABS: ALBUMIN 2.8 GM/DL (3.2-5.2); C REACTIVE PROTEIN QUANTITATIV 0.35 MG/DL (0.00-0.30); TOTAL PROTEIN 6.2 GM/DL (6.4-8.2)
[2019-10-30 16:14] LABS: ERYTHROCYTE SEDIMENTATION RATE 49 mm/hr (0-30)
== END ==
LOC: M SHH 15:13
PROVIDERS: ATTEND Internal Medicine Infectious Disease
DX: K75.0 Abscess of liver (principal); A49.9 Bacterial infection, unspecified; Z90.49 Acquired absence of other specified parts of digestive tract

== ENCOUNTER → 2019-11-02 | Outpatient (CLI) | payer BC ==
[~2019-11-02] VITALS: Ht 162.6 cm; Wt 93.6 kg
[~2019-11-02] MED LIST changes: -ARTIDRO2 OU; -ROPI0.5T PO; +ROPI0.5T3 PO; -ROPI1TAB PO; +ROPI1TAB3 PO; +SODIUM CHLORIDE 0.9% INJ 10 ML SYR IV PRN; +SODIUM CHLORIDE 0.9% INJ 10 ML SYR IV SCH
[2019-11-02 12:45] VITALS: BP 115/57
== END ==
LOC: M INFU 12:32
PROVIDERS: ATTEND Internal Medicine Infectious Disease
DX: K65.1 Peritoneal abscess (principal); Z88.0 Allergy status to penicillin; Z88.1 Allergy status to other antibiotic agents; Z88.2 Allergy status to sulfonamides; Z88.5 Allergy status to narcotic agent

== ENCOUNTER 2019-11-06 11:21 | Outpatient (CLI) | payer BC ==
[~2019-11-06] VITALS: Ht 167.6 cm; Wt 93.6 kg
[~2019-11-06 11:21] MED LIST changes: -SODIUM CHLORIDE 0.9% INJ 10 ML SYR IV PRN; -SODIUM CHLORIDE 0.9% INJ 10 ML SYR IV SCH
[2019-11-06 12:34] LABS: HEMATOCRIT 33.6 % (36.0-47.0); HEMOGLOBIN 9.9 g/dl (12.0-15.5); MEAN CORPUSCULAR HEMOGLOBIN 24.3 pg (27.0-33.0); MEAN CORPUSCULAR HGB CONC 29.5 g/dl (32.0-36.5); MEAN CORPUSCULAR VOLUME 82.4 fl (80.0-96.0); PLATELET COUNT, AUTOMATED 255 10^3/uL (150-450); RED BLOOD COUNT 4.08 10^6/uL (4.00-5.40); WHITE BLOOD COUNT 5.6 10^3/uL (4.0-10.0)
[2019-11-06 12:59] VITALS: BP 110/65
[2019-11-06] MEDS ORDERED: SODIUM CHLORIDE 0.9% INJ 10 ML SYR IV PRN (13:00)
[2019-11-06] MEDS ORDERED: SODIUM CHLORIDE 0.9% INJ 10 ML SYR IV ONE (13:00)
[2019-11-06 13:14] LABS: ALT/SGPT 32 U/L (12-78); BILIRUBIN,TOTAL 0.2 MG/DL (0.2-1.0); BLOOD UREA NITROGEN 13 MG/DL (7-18); CALCIUM LEVEL 8.7 MG/DL (8.8-10.2); CARBON DIOXIDE LEVEL 28 MEQ/L (21-32); CHLORIDE LEVEL 109 MEQ/L (98-107); GLOMERULAR FILTRATION RATE > 60.0 (>45); GLUCOSE, FASTING 87 MG/DL (70-100); POTASSIUM SERUM 3.8 MEQ/L (3.5-5.1); SODIUM LEVEL 143 MEQ/L (136-145); TOTAL PROTEIN 6.3 GM/DL (6.4-8.2)
[2019-11-06 13:25] LABS: ERYTHROCYTE SEDIMENTATION RATE 52 mm/hr (0-30)
== END 2019-11-06 13:00 | disposition home or self-care (01) ==
LOC: M INFU 11:21
PROVIDERS: ATTEND Internal Medicine Infectious Disease
DX: K65.1 Peritoneal abscess (principal); Z88.0 Allergy status to penicillin; Z88.1 Allergy status to other antibiotic agents; Z88.2 Allergy status to sulfonamides; Z88.5 Allergy status to narcotic agent
CPT/HCPCS: 36592; 80053; 85027; 85652; 86140; J1642

== ENCOUNTER 2019-11-13 11:31 | Outpatient (CLI) | payer BC ==
[~2019-11-13] VITALS: Ht 167.6 cm; Wt 93.6 kg
[2019-11-13 11:35] VITALS: BP 123/60
[2019-11-13] MEDS ORDERED: SODIUM CHLORIDE 0.9% INJ 10 ML SYR IV ONE (12:00)
[2019-11-13] MEDS ORDERED: SODIUM CHLORIDE 0.9% INJ 10 ML SYR IV PRN (12:00)
[2019-11-13 12:18] LABS: HEMATOCRIT 33.1 % (36.0-47.0); MEAN CORPUSCULAR HEMOGLOBIN 24.6 pg (27.0-33.0); MEAN CORPUSCULAR HGB CONC 30.2 g/dl (32.0-36.5); MEAN CORPUSCULAR VOLUME 81.3 fl (80.0-96.0); PLATELET COUNT, AUTOMATED 254 10^3/uL (150-450); RED BLOOD COUNT 4.07 10^6/uL (4.00-5.40); WHITE BLOOD COUNT 5.7 10^3/uL (4.0-10.0)
[2019-11-13 12:49] LABS: ALBUMIN 2.9 GM/DL (3.2-5.2); ALT/SGPT 30 U/L (12-78); BILIRUBIN,TOTAL 0.2 MG/DL (0.2-1.0); BLOOD UREA NITROGEN 14 MG/DL (7-18); C REACTIVE PROTEIN QUANTITATIV 0.38 MG/DL (0.00-0.30); CALCIUM LEVEL 8.4 MG/DL (8.8-10.2); CARBON DIOXIDE LEVEL 28 MEQ/L (21-32); CHLORIDE LEVEL 109 MEQ/L (98-107); CREATININE FOR GFR 0.56 MG/DL (0.55-1.30); GLOMERULAR FILTRATION RATE > 60.0 (>45); GLUCOSE, FASTING 94 MG/DL (70-100); POTASSIUM SERUM 4.4 MEQ/L (3.5-5.1); SODIUM LEVEL 142 MEQ/L (136-145); TOTAL PROTEIN 6.4 GM/DL (6.4-8.2)
[2019-11-13 13:01] LABS: ERYTHROCYTE SEDIMENTATION RATE 43 mm/hr (0-30)
== END 2019-11-13 12:10 | disposition home or self-care (01) ==
LOC: M INFU 11:31
PROVIDERS: ATTEND Internal Medicine Infectious Disease
DX: K65.1 Peritoneal abscess (principal); Z88.0 Allergy status to penicillin; Z88.1 Allergy status to other antibiotic agents; Z88.2 Allergy status to sulfonamides; Z88.5 Allergy status to narcotic agent
CPT/HCPCS: 36591; 80053; 85027; 85652; 86140; J1642

== ENCOUNTER → 2019-11-19 | Outpatient (REF) | payer BC ==
[2019-11-19 12:21] LABS: BASO % 0.6 % (0.0-1.0); EOS # 0.2 10^3/uL (0.0-0.5); HEMATOCRIT 36.2 % (36.0-47.0); HEMOGLOBIN 10.6 g/dl (12.0-15.5); LYMPH # 2.1 10^3/uL (1.5-5.0); LYMPH % 33.7 % (24.0-44.0); MEAN CORPUSCULAR HGB CONC 29.3 g/dl (32.0-36.5); MEAN CORPUSCULAR VOLUME 82.1 fl (80.0-96.0); MONO # 0.6 10^3/uL (0.0-0.8); MONO % 9.1 % (0.0-5.0); NEUTROPHILS # 3.3 10^3/uL (1.5-8.5); NEUTROPHILS % 53.1 % (36.0-66.0); PLATELET COUNT, AUTOMATED 274 10^3/uL (150-450); RED BLOOD COUNT 4.41 10^6/uL (4.00-5.40); WHITE BLOOD COUNT 6.3 10^3/uL (4.0-10.0)
[2019-11-19 12:26] LABS: BLOOD UREA NITROGEN 13 MG/DL (7-18); CALCIUM LEVEL 8.6 MG/DL (8.8-10.2); CARBON DIOXIDE LEVEL 29 MEQ/L (21-32); CHLORIDE LEVEL 109 MEQ/L (98-107); CREATININE FOR GFR 0.62 MG/DL (0.55-1.30); GLOMERULAR FILTRATION RATE > 60.0 (>45); GLUCOSE, FASTING 103 MG/DL (70-100); SODIUM LEVEL 144 MEQ/L (136-145)
[2019-11-19 14:26] LABS: ERYTHROCYTE SEDIMENTATION RATE 43 mm/hr (0-30)
== END ==
LOC: M SFHCPLAZ 08:44
PROVIDERS: ATTEND Internal Medicine Infectious Disease
DX: K75.0 Abscess of liver (principal)

== ENCOUNTER → 2019-12-03 | Outpatient (REF) | payer BC ==
[2019-12-03 12:07] LABS: BASO % 0.6 % (0.0-1.0); EOS # 0.2 10^3/uL (0.0-0.5); EOS % 2.6 % (0.0-3.0); HEMATOCRIT 36.5 % (36.0-47.0); HEMOGLOBIN 10.8 g/dl (12.0-15.5); LYMPH # 2.1 10^3/uL (1.5-5.0); LYMPH % 30.2 % (24.0-44.0); MEAN CORPUSCULAR HEMOGLOBIN 24.4 pg (27.0-33.0); MEAN CORPUSCULAR HGB CONC 29.6 g/dl (32.0-36.5); MEAN CORPUSCULAR VOLUME 82.4 fl (80.0-96.0); MONO # 0.8 10^3/uL (0.0-0.8); MONO % 11.3 % (0.0-5.0); NEUTROPHILS # 3.7 10^3/uL (1.5-8.5); PLATELET COUNT, AUTOMATED 252 10^3/uL (150-450); RED BLOOD COUNT 4.43 10^6/uL (4.00-5.40); WHITE BLOOD COUNT 6.8 10^3/uL (4.0-10.0)
[2019-12-03 12:32] LABS: ERYTHROCYTE SEDIMENTATION RATE 49 mm/hr (0-30)
== END ==
LOC: M SFHCPLAZ 08:34
PROVIDERS: ATTEND Internal Medicine Infectious Disease
DX: K75.0 Abscess of liver (principal)

== ENCOUNTER → 2019-12-10 | Outpatient (REF) | payer BC ==
[2019-12-10 13:36] LABS: BASO % 0.4 % (0.0-1.0); EOS # 0.2 10^3/uL (0.0-0.5); EOS % 2.3 % (0.0-3.0); HEMATOCRIT 34.1 % (36.0-47.0); HEMOGLOBIN 10.2 g/dl (12.0-15.5); LYMPH # 2.5 10^3/uL (1.5-5.0); LYMPH % 31.8 % (24.0-44.0); MEAN CORPUSCULAR HEMOGLOBIN 24.5 pg (27.0-33.0); MEAN CORPUSCULAR HGB CONC 29.9 g/dl (32.0-36.5); MONO # 0.7 10^3/uL (0.0-0.8); NEUTROPHILS # 4.5 10^3/uL (1.5-8.5); NEUTROPHILS % 56.2 % (36.0-66.0); PLATELET COUNT, AUTOMATED 271 10^3/uL (150-450); RED BLOOD COUNT 4.16 10^6/uL (4.00-5.40)
[2019-12-10 14:21] LABS: ERYTHROCYTE SEDIMENTATION RATE 43 mm/hr (0-30)
== END ==
LOC: M SFHCPLAZ 11:21
PROVIDERS: ATTEND Internal Medicine Infectious Disease
DX: K75.0 Abscess of liver (principal)

== ENCOUNTER → 2020-01-07 | Outpatient (REF) | payer BC ==
[2020-01-07 10:03] LABS: BASO % 0.3 % (0.0-1.0); EOS # 0.2 10^3/uL (0.0-0.5); EOS % 2.7 % (0.0-3.0); HEMATOCRIT 36.8 % (36.0-47.0); HEMOGLOBIN 10.8 g/dl (12.0-15.5); LYMPH % 33.4 % (24.0-44.0); MEAN CORPUSCULAR HEMOGLOBIN 23.8 pg (27.0-33.0); MEAN CORPUSCULAR HGB CONC 29.3 g/dl (32.0-36.5); MEAN CORPUSCULAR VOLUME 81.2 fl (80.0-96.0); MONO # 0.6 10^3/uL (0.0-0.8); MONO % 10.1 % (0.0-5.0); NEUTROPHILS # 3.2 10^3/uL (1.5-8.5); NEUTROPHILS % 53.3 % (36.0-66.0); PLATELET COUNT, AUTOMATED 248 10^3/uL (150-450); RED BLOOD COUNT 4.53 10^6/uL (4.00-5.40); WHITE BLOOD COUNT 5.9 10^3/uL (4.0-10.0)
[2020-01-07 10:33] LABS: ERYTHROCYTE SEDIMENTATION RATE 40 mm/hr (0-30)
== END ==
LOC: M SFHCPLAZ 08:06
PROVIDERS: ATTEND Internal Medicine Infectious Disease
DX: K75.0 Abscess of liver (principal)

== ENCOUNTER → 2020-02-05 | Outpatient (REF) | payer BC ==
[~2020-02-05] MED LIST changes: -COUM7.5T PO; +COUM7.5T6 PO; -NABU-119 PO; +NABU-53 PO
[2020-02-05 17:16] LABS: BASO % 0.6 % (0.0-1.0); EOS # 0.1 10^3/uL (0.0-0.5); EOS % 1.7 % (0.0-3.0); HEMATOCRIT 35.1 % (36.0-47.0); HEMOGLOBIN 10.4 g/dl (12.0-15.5); LYMPH % 30.2 % (24.0-44.0); MEAN CORPUSCULAR HEMOGLOBIN 24.3 pg (27.0-33.0); MEAN CORPUSCULAR HGB CONC 29.6 g/dl (32.0-36.5); MONO # 0.6 10^3/uL (0.0-0.8); MONO % 9.6 % (0.0-5.0); NEUTROPHILS # 3.7 10^3/uL (1.5-8.5); NEUTROPHILS % 57.6 % (36.0-66.0); PLATELET COUNT, AUTOMATED 248 10^3/uL (150-450); RED BLOOD COUNT 4.28 10^6/uL (4.00-5.40); WHITE BLOOD COUNT 6.5 10^3/uL (4.0-10.0)
[2020-02-05 18:08] LABS: ERYTHROCYTE SEDIMENTATION RATE 46 mm/hr (0-30)
== END ==
LOC: M SFHCPLAZ 14:16
PROVIDERS: ATTEND Internal Medicine Infectious Disease
DX: K75.0 Abscess of liver (principal)

== ENCOUNTER → 2020-04-08 | Outpatient (CLI) | payer BC ==
[2020-04-08 11:10] LABS: BASO % 0.7 % (0.0-1.0); EOS # 0.1 10^3/uL (0.0-0.5); EOS % 2.6 % (0.0-3.0); HEMATOCRIT 36.7 % (36.0-47.0); HEMOGLOBIN 10.5 g/dl (12.0-15.5); LYMPH # 2.3 10^3/uL (1.5-5.0); LYMPH % 43.2 % (24.0-44.0); MEAN CORPUSCULAR HEMOGLOBIN 24.2 pg (27.0-33.0); MEAN CORPUSCULAR HGB CONC 28.6 g/dl (32.0-36.5); MEAN CORPUSCULAR VOLUME 84.8 fl (80.0-96.0); MONO # 0.6 10^3/uL (0.0-0.8); MONO % 10.5 % (0.0-5.0); NEUTROPHILS # 2.3 10^3/uL (1.5-8.5); NEUTROPHILS % 42.8 % (36.0-66.0); PLATELET COUNT, AUTOMATED 210 10^3/uL (150-450); RED BLOOD COUNT 4.33 10^6/uL (4.00-5.40); WHITE BLOOD COUNT 5.4 10^3/uL (4.0-10.0)
[2020-04-08 11:21] LABS: ALBUMIN 3.3 GM/DL (3.2-5.2); ALT/SGPT 25 U/L (12-78); C REACTIVE PROTEIN QUANTITATIV < 0.30 MG/DL (0.00-0.30); CREATININE FOR GFR 0.75 MG/DL (0.55-1.30); GLOMERULAR FILTRATION RATE > 60.0 (>45)
[2020-04-08 11:48] LABS: ERYTHROCYTE SEDIMENTATION RATE 27 mm/hr (0-30)
== END ==
LOC: M PLALAB 08:03
PROVIDERS: ATTEND Internal Medicine Rheumatology
DX: M06.09 Rheumatoid arthritis without rheumatoid factor, multiple sites (principal); Z79.899 Other long term (current) drug therapy; M15.9 Polyosteoarthritis, unspecified

== ENCOUNTER → 2020-06-12 | Outpatient (CLI) | payer BC ==
[2020-06-12 15:25] LABS: BASO % 0.5 % (0.0-1.0); EOS # 0.1 10^3/uL (0.0-0.5); EOS % 1.8 % (0.0-3.0); HEMATOCRIT 39.9 % (36.0-47.0); HEMOGLOBIN 11.8 g/dl (12.0-15.5); LYMPH # 2.6 10^3/uL (1.5-5.0); LYMPH % 44.3 % (24.0-44.0); MEAN CORPUSCULAR HEMOGLOBIN 24.8 pg (27.0-33.0); MEAN CORPUSCULAR HGB CONC 29.6 g/dl (32.0-36.5); MONO # 0.6 10^3/uL (0.0-0.8); MONO % 9.6 % (0.0-5.0); NEUTROPHILS # 2.6 10^3/uL (1.5-8.5); NEUTROPHILS % 43.3 % (36.0-66.0); PLATELET COUNT, AUTOMATED 259 10^3/uL (150-450); RED BLOOD COUNT 4.75 10^6/uL (4.00-5.40)
[2020-06-12 15:51] LABS: ERYTHROCYTE SEDIMENTATION RATE 33 mm/hr (0-30)
[2020-06-12 15:58] LABS: ALBUMIN 3.5 GM/DL (3.2-5.2); BILIRUBIN,TOTAL 0.4 MG/DL (0.2-1.0); C REACTIVE PROTEIN QUANTITATIV 0.3 MG/DL (0.00-0.30); CREATININE FOR GFR 1.04 MG/DL (0.55-1.30); GLOMERULAR FILTRATION RATE 56.8 (>45); POTASSIUM SERUM 4.3 MEQ/L (3.5-5.1); TOTAL PROTEIN 6.9 GM/DL (6.4-8.2)
== END ==
LOC: M PLALAB 13:20
PROVIDERS: ATTEND Internal Medicine Infectious Disease
DX: K75.0 Abscess of liver (principal); M06.9 Rheumatoid arthritis, unspecified

== ENCOUNTER → 2020-06-17 | Outpatient (REF) | payer BC ==
[2020-06-17 16:56] LABS: PERCENT SATURATION 8.5 % (13.2-45.0)
[2020-06-17 17:07] LABS: FOLATE 12.1 NG/ML
== END ==
LOC: M LAB REF 16:31
PROVIDERS: ATTEND Internal Medicine
DX: Z98.84 Bariatric surgery status (principal)

== ENCOUNTER → 2020-07-22 | Outpatient (CLI) | payer BC ==
[2020-07-22 14:07] LABS: HEMATOCRIT 40.4 % (36.0-47.0); HEMOGLOBIN 11.7 g/dl (12.0-15.5); MEAN CORPUSCULAR HEMOGLOBIN 25.2 pg (27.0-33.0); MEAN CORPUSCULAR VOLUME 86.9 fl (80.0-96.0); PLATELET COUNT, AUTOMATED 253 10^3/uL (150-450); RED BLOOD COUNT 4.65 10^6/uL (4.00-5.40); WHITE BLOOD COUNT 6.5 10^3/uL (4.0-10.0)
[2020-07-22 14:41] LABS: ERYTHROCYTE SEDIMENTATION RATE 30 mm/hr (0-30)
== END ==
LOC: M PLALAB 10:24
PROVIDERS: ATTEND Orthopaedic Surgery
DX: Z96.653 Presence of artificial knee joint, bilateral (principal)

== ENCOUNTER → 2020-10-28 | Outpatient (REF) | payer BC | LOC: M LAB REF 12:40 | PROVIDERS: ATTEND Radiology Diagnostic Radiology | DX: R92.1 Mammographic calcification found on diagnostic imaging of breast (principal) ==

== ENCOUNTER → 2020-12-23 | Outpatient (REF) | payer MEDICARE ==
[2020-12-23 13:32] LABS: PERCENT SATURATION 13.1 % (13.2-45.0)
== END ==
LOC: M LAB REF 12:04
PROVIDERS: ATTEND Internal Medicine
DX: Z98.84 Bariatric surgery status (principal); D50.9 Iron deficiency anemia, unspecified

== ENCOUNTER → 2021-03-27 | Outpatient (CLI) | payer MEDICARE ==
[~2021-03-27] MED LIST changes: -NABU-53 PO; +NABU-73 PO
[2021-03-27 13:22] LABS: BASO % 0.4 % (0.0-1.0); EOS # 0.1 10^3/uL (0.0-0.5); EOS % 2.9 % (0.0-3.0); HEMATOCRIT 37.6 % (36.0-47.0); HEMOGLOBIN 11.2 g/dl (12.0-15.5); LYMPH % 44.8 % (24.0-44.0); MEAN CORPUSCULAR HEMOGLOBIN 25.8 pg (27.0-33.0); MEAN CORPUSCULAR HGB CONC 29.8 g/dl (32.0-36.5); MEAN CORPUSCULAR VOLUME 86.6 fl (80.0-96.0); MONO # 0.6 10^3/uL (0.0-0.8); MONO % 13.8 % (2.0-8.0); NEUTROPHILS # 1.7 10^3/uL (1.5-8.5); NEUTROPHILS % 37.9 % (36.0-66.0); PLATELET COUNT, AUTOMATED 194 10^3/uL (150-450); RED BLOOD COUNT 4.34 10^6/uL (4.00-5.40); WHITE BLOOD COUNT 4.5 10^3/uL (4.0-10.0)
[2021-03-27 13:43] LABS: ALBUMIN 3.2 GM/DL (3.2-5.2); ALT/SGPT 23 U/L (12-78); BLOOD UREA NITROGEN 14 MG/DL (7-18); C REACTIVE PROTEIN QUANTITATIV 0.38 MG/DL (0.00-0.30); CREATININE FOR GFR 0.66 MG/DL (0.55-1.30); GLOMERULAR FILTRATION RATE > 60.0 (>45)
[2021-03-27 13:59] LABS: ERYTHROCYTE SEDIMENTATION RATE 124 mm/hr (0-30)
== END ==
LOC: M PLALAB 11:36
PROVIDERS: ATTEND Internal Medicine Rheumatology
DX: M06.09 Rheumatoid arthritis without rheumatoid factor, multiple sites (principal); Z79.899 Other long term (current) drug therapy

== ENCOUNTER 2021-04-13 17:42 | Observation (INO) | payer MEDICARE ==
[~2021-04-13] VITALS: Ht 160 cm; Wt 116.2 kg
[2021-04-13] MEDS ORDERED: FURO20TA2 (17:51)
--- NOTE | 2021-04-13 18:49 | REP ---
INDICATION: DYSPNEA/COUGH. COMPARISON: Comparison portable chest x-ray 04 October 2019. TECHNIQUE: Portable upright AP chest radiograph. FINDINGS: The lungs are well inflated and free of infiltrate. Pleural angles are sharp. Heart size is normal. Pulmonary vasculature is not increased. Right hemidiaphragm remains slightly elevated unchanged with bowel gas beneath it. There are clips in the right upper quadrant of the abdomen as well. No acute bony abnormality. IMPRESSION: No active disease. <Electronically signed by Dejon Mayberry > 04/13/21 [id number]
[2021-04-13 19:33] LABS: BASO % 0.6 % (0.0-1.0); EOS % 0.6 % (0.0-3.0); HEMATOCRIT 36.9 % (36.0-47.0); HEMOGLOBIN 11.4 g/dl (12.0-15.5); LYMPH # 0.3 10^3/uL (1.5-5.0); MEAN CORPUSCULAR HEMOGLOBIN 25.8 pg (27.0-33.0); MEAN CORPUSCULAR HGB CONC 30.9 g/dl (32.0-36.5); MEAN CORPUSCULAR VOLUME 83.5 fl (80.0-96.0); MONO # 0.4 10^3/uL (0.0-0.8); MONO % 11.9 % (2.0-8.0); NEUTROPHILS # 2.7 10^3/uL (1.5-8.5); NEUTROPHILS % 77.6 % (36.0-66.0); PLATELET COUNT, AUTOMATED 153 10^3/uL (150-450); RED BLOOD COUNT 4.42 10^6/uL (4.00-5.40); WHITE BLOOD COUNT 3.4 10^3/uL (4.0-10.0)
[2021-04-13 19:41] LABS: VENOUS BASE EXCESS 1.4 (-2.0-2.0); VENOUS HCO3 25.4 MEQ/L (23.0-27.0); VENOUS O2 SATURATION 85.4 % (60.0-80.0); VENOUS PARTIAL PRESSURE O2 49.5 mmHg (30.0-50.0); VENOUS PH 7.443 UNITS (7.330-7.430); VENOUS STANDARD HCO3 25.5 MEQ/L; VENOUS TOTAL CO2 26.6 MEQ/L (24.0-28.0)
[2021-04-13] MEDS ORDERED: ACETAMINOPHEN TAB 650MG DOSE (2X325MG) PO ONE (20:00)
[2021-04-13] MEDS ORDERED: NS 1,000 ML IV ONE (20:00)
[2021-04-13] MEDS ORDERED: IBUPROFEN 800 MG TAB PO ONE (20:00)
[2021-04-13] MEDS ORDERED: KETOROLAC 30 MG/ML 1ML VIAL IV ONE (20:05)
[2021-04-13 20:14] LABS: ALBUMIN 3.4 GM/DL (3.2-5.2); ALT/SGPT 29 U/L (12-78); BILIRUBIN,DIRECT 0.2 MG/DL (0.0-0.2); BILIRUBIN,TOTAL 0.5 MG/DL (0.2-1.0); BLOOD UREA NITROGEN 15 MG/DL (7-18); CALCIUM LEVEL 8.2 MG/DL (8.8-10.2); CARBON DIOXIDE LEVEL 26 MEQ/L (21-32); CHLORIDE LEVEL 104 MEQ/L (98-107); CK-MB VALUE MASS < 1.0 NG/ML (<3.6); CPK CREATINE PHOSPHOKINASE 43 U/L (26-192); CREATININE FOR GFR 0.86 MG/DL (0.55-1.30); GLOMERULAR FILTRATION RATE > 60.0 (>45); GLUCOSE, FASTING 101 MG/DL (70-100); MB/CK RELATIVE INDEX 2.33 (< OR =4); NT-PRO BNP 93 PG/ML (<125); POTASSIUM SERUM 4.2 MEQ/L (3.5-5.1); SODIUM LEVEL 138 MEQ/L (136-145); THYROID STIMULATING HORMONE 0.335 uIU/ML (0.358-3.740); THYROXINE (T4) 9.5 UG/DL (4.5-12.0); TROPONIN I < 0.02 NG/ML (< 0.10)
[2021-04-13] MEDS ORDERED: ISOVUE-370 76% 100ML VIAL As Ordered ONE (21:41)
--- NOTE | 2021-04-13 22:26 | REPVR ---
PROCEDURE INFORMATION: Exam: CT Chest With Contrast; Diagnostic Exam date and time: 04/13/2021 9:51 PM Age: 65 years old Clinical indication: Fever; Additional info: Fever unknown origin, HX of liver abscess TECHNIQUE: Imaging protocol: Diagnostic computed tomography of the chest with contrast. Radiation optimization: All CT scans at this facility use at least one of these dose optimization techniques: automated exposure control; mA and/or kV adjustment per patient size (includes targeted exams where dose is matched to clinical indication); or iterative reconstruction. Contrast material: ISOVUE 370; Contrast volume: 100 ml; Contrast route: INTRAVENOUS (IV); COMPARISON: CT ABD PELVIS W/O CONTRAST 10/05/2019 5:50 AM FINDINGS: Lungs: Pulmonary vascular/interstitial pattern does not suggest active pulmonary edema. Mild right basilar compressive atelectasis. No concerning lung mass or airspace process and no central endobronchial lesion. Pleural spaces: No pleural effusion or pneumothorax. Heart: No overt cardiac enlargement or abnormal volume of pericardial fluid. Aorta: No thoracic aortic aneurysm or dissection. Lymph nodes: No enlarged mediastinal lymph nodes. Diaphragm: Right hemidiaphragm is elevated, a chronic finding. Bones/joints: Bony structures are unremarkable except for benign DISH changes. Soft tissues: No asymmetric abnormality of the extrathoracic soft tissues. IMPRESSION: No acute or concerning focal thoracic abnormality. No explanation for fever of unknown origin Electronically signed by: Anthony Blunt On 04/13/2021 22:25:39 PM
--- NOTE | 2021-04-13 22:33 | ECGEPIP ---
[facility] - ED Test Date: 2021-04-13 Pat Name: SHELLIE VÁSQUEZ Department: Room: - Gender: Female Boxing Instructor: ESAU : 1955 Requested By: Tommie Richards Order Number: [id number] Reading MD: Philip Carr Measurements Intervals [place] Rate: 119 P: 21 ME: 136 QRS: 17 QRSD: 70 T: 20 QT: 320 QTc: 450 Interpretive Statements Sinus tachycardia Baseline artifact Similar to tracing done 10-04-19 Electronically Signed on 04-13-2021 22:33:16 EDT by Philip Carr
--- NOTE | 2021-04-13 22:37 | REPVR ---
PROCEDURE INFORMATION: Exam: CT Abdomen And Pelvis With Contrast Exam date and time: 04/13/2021 9:51 PM Age: 65 years old Clinical indication: Fever; Additional info: Fever unknown origin, HX of liver abscess TECHNIQUE: Imaging protocol: Computed tomography of the abdomen and pelvis with contrast. Radiation optimization: All CT scans at this facility use at least one of these dose optimization techniques: automated exposure control; mA and/or kV adjustment per patient size (includes targeted exams where dose is matched to clinical indication); or iterative reconstruction. Contrast material: ISOVUE 370; Contrast volume: 100 ml; Contrast route: INTRAVENOUS (IV); COMPARISON: CT ABD PELVIS W/O CONTRAST 10/05/2019 5:50 AM FINDINGS: Liver: Liver appears normal with no focal abnormality. Gallbladder and bile ducts: Gallbladder is surgically absent. Pancreas: Pancreas appears normal. No focal mass or peripancreatic inflammation. Spleen: Spleen appears homogeneous without focal mass. Adrenal glands: Adrenal glands are normal in appearance. Kidneys and ureters: Kidneys appear normal, with no stone, solid mass or hydronephrosis. Stomach and bowel: Postsurgical changes of gastric bypass procedure are present. No evidence of small bowel obstruction. Appendix: Appendix is not visualized. Cecal tip suture line suggests prior appendix resection. Intraperitoneal space: No pneumoperitoneum. Vasculature: Atherosclerotic change present in the aorta, without aneurysm. Main portal and splenic veins enhance normally. Lymph nodes: No enlarged lymph nodes. Urinary bladder: Urinary bladder appears normal. Reproductive: Female reproductive organs appear unremarkable. Bones/joints: Bony structures are normal except for lumbar spine degenerative disc changes. Soft tissues: Unremarkable. IMPRESSION: No acute surgical or inflammatory intra-abdominal or pelvic process. No explanation for the clinical presentation of fever Electronically signed by: Anthony Blunt On 04/13/2021 22:36:51 PM
[2021-04-14] MEDS ORDERED: NS 1,000 ML IV ONE
[2021-04-14 00:02] LABS: C REACTIVE PROTEIN QUANTITATIV 0.59 MG/DL (0.00-0.30)
[2021-04-14] MEDS ORDERED: NS IV ONE (00:40)
[2021-04-14] MEDS ORDERED: IMIPENEM/CILASTATIN 500 MG in D5W MINI-BAG PLUS 100 ML IV ONE (00:45)
[2021-04-14] MEDS ORDERED: MOM 30ML SUSPENSION UDC PO PRN (00:55)
[2021-04-14] MEDS ORDERED: MAALOX 30 ML SUSP *UDC PO PRN (00:55)
[2021-04-14] MEDS ORDERED: POTA595T16 PO (01:04)
[2021-04-14] MEDS ORDERED: D31000TA2 PO (01:04)
[2021-04-14] MEDS ORDERED: ROPI1TAB3 PO (01:04)
[2021-04-14] MEDS ORDERED: FURO20TA2 PO (01:04)
[2021-04-14] MEDS ORDERED: MAGN400T2 PO (01:04)
[2021-04-14] MEDS ORDERED: IRON100T PO (01:04)
--- NOTE | 2021-04-14 01:46 | HPEPDOC ---
[facility] Medical History & Physical Date of Admission Apr 14, 2021 Date of Service: Apr 14, 2021 Primary Care Physician: Jr Knight Collins Attending Physician: POLLO JIMENEZ MD History and Physical CHIEF COMPLAINT: , Fever, chills, cough, and general malaise HISTORY OF PRESENT ILLNESS: Mrs. Linda is a 65-year-old female who presented to the ER with complaints of fever and chills along with cough and general malaise. She states she started with a cough about 10 days ago. On Tuesday she started with significant c hilling. She took her temperature at home and it was higher than 102 intermittently. She describes sitting out in the sun today with a lady on and a blanket trying to get warm. She said it feels like it did last year when she had developed liver abscesses. Of note, she did have both doses of Moderna Covid vaccine. She said she has had a headache but denies nausea, vomiting or diarrhea. On initial evaluation this evening her temperature was 103. She was hypotensive with blood pressure 94/55. She was given IV fluids, Tylenol and Toradol. She was also ordered to have a dose of Primaxin. Chest x-ray and CT of the chest, abdomen and pelvis were unremarkable. UA is negative. Respiratory viral panel was also negative. White blood cell count was decreased at 3.4 with neutrophils at 77. BUN/creatinine were within normal limits. LFTs were not elevated. TSH was noted to be below normal at 0.335, but T4 was 9.5. C-reactive protein showed some elevation at 0.59. Lactic acid is normal. Pro calcitonin is pending. PAST MEDICAL HISTORY: 1. Rheumatoid arthritis on chronic Humira with last dose 03/30/2021 2. Liver abscess. 3. Restless leg. 4. Cellulitis of the bilateral lower extremities. 5. Chronic edema bilateral lower extremities. 6. Obstructive sleep apnea, noncompliant with CPAP PAST SURGICAL HISTORY: 1. Bilateral total knee replacement. 2. Heather-en-Y. 3. Cholecystectomy. 4. Appendectomy. 5. Drain placement for liver abscesses. 6. Hysterosalpingogram SOCIAL HISTORY: Tobacco use: Denies ETOH: Denies Illicit drug use: Denies Patient lives with: Her FAMILY HISTORY: Patient's mother is 88 years old and has a history of osteoarthritis and high blood pressure. Her father at the age of 86 with a history of colon cancer and congestive heart failure. REVIEW OF SYSTEMS: Complete 10 point review systems is negative except as noted above PHYSICAL EXAMINATION: Patient is seen in the ER, lying on the stretcher. She is able to move from the stretcher to the bedside commode without assist... She is is alert and oriented x 3 but complains of being very tired and fatigued. HEENT is WNL. Neck is supple. Lungs are clear to auscultation. Heart regular rate and rhythm without murmur. Abdomen is obese, soft, non-tender to palpation with bowel sounds positive. Extremities with good ROM and strength equal bilaterally. 1+ lower extremity edema. Pedal pulses are positive. Skin is warm and dry with no obvious rash or lesion. Neuro: grossly intact. Psych: She is pleasant and cooperative. ASSESSMENT AND PLAN: 1. Sepsis, etiology unclear but possibly secondary to viral etiology as evidenced by fever and hypotension with leukopenia. We'll continue the patient on gentle IV fluids. Pro calcitonin is pending. No clear infectious source. Received 1 dose of Primaxin in the ER. Will hold off on any further antibiotics for now until a clear bacterial infectious source can be identified. Continue to monitor vital signs closely. Will add when necessary antipyretics and NSAIDs for myalgias. Will also add when necessary cough medicine. 2. Hypotension. Will hold on Lasix and continue on gentle IV fluids. Monitor with routine vital signs. 3. Leukopenia. Plan as noted above. Recheck white blood cell count in the morning. 4. Decreased TSH with normal T4. Patient to follow-up with primary care for continued monitoring once acute illness is resolved. 5. Obstructive sleep apnea. Patient noncompliant with CPAP. Will have oxygen available as needed. 6. Rheumatoid arthritis. Last Humira dose on 03/30/2021. Continue supportive care. 7. Restless legs. Continue ropinirole. 8. Bilateral lower extremity edema. Elevate bilateral lower extremities as much as possible. Encourage patient to wear compression. Lasix on hold for now. 9. DVT prophylaxis. Will add Lovenox. CODE STATUS: CODE STATUS was discussed with the patient desires to be considered full code. She states her would act as her surrogate if she were unable to make her own decisions. Patient is considered high risk of further deterioration including possible development of septic shock. She is admitted for close observation and further evaluation and expected to remain at least one midnight. Vital Signs Vital Signs Date Time Temp Pulse Resp B/P (MAP) Pulse Ox O2 Delivery O2 Flow Rate FiO2 04/14/21 01:06 98.7 04/14/21 01:05 99 105/51 (69) 04/14/21 00:35 16 94 Room Air Laboratory Data Labs 24H Laboratory Tests 2 04/13/21 19:19: Lactic Acid Level 1.8 04/13/21 19:20: Immature Granulocyte % (Auto) 0.3, Neutrophils (%) (Auto) 77.6H, Lymphocytes (%) (Auto) 9.0L, Monocytes (%) (Auto) 11.9H, Eosinophils (%) (Auto) 0.6, Basophils (%) (Auto) 0.6, Neutrophils # (Auto) 2.7, Lymphocytes # (Auto) 0.3L, Monocytes # (Auto) 0.4, Eosinophils # (Auto) 0.0, Basophils # (Auto) 0.0, Nucleated Red Blood Cells % (auto) 0.0, Blood Gas Bicarbonate Standard 25.5, Venous Blood pH 7.443H, Venous Blood Partial Pressure CO2 38.0, Venous Blood Partial Pressure O2 49.5, Venous Blood Total Carbon Dioxide 26.6, Venous Blood HCO3 25.4, Venous Blood Oxygen Saturation 85.4H, Venous Blood Base Excess 1.4, Anion Gap 8, Glomerular Filtration Rate > 60.0, Calcium Level 8.2L, Total Bilirubin 0.5, Direct Bilirubin 0.2, Aspartate Amino Transf (AST/SGOT) 24, Alanine Aminotransferase (ALT/SGPT) 29, Alkaline Phosphatase 70, Total Creatine Kinase 43, Creatine Kinase MB < 1.0, Creatine Kinase MB Relative Index 2.33, Troponin I < 0.02, C-Reactive Protein, Quantitative 0.59H, YP-Vqa-[id number]-Type Natriuretic Peptide 93, Total Protein 7.0, Albumin 3.4, Albumin/Globulin Ratio 0.9L, Thyroid Stimulating Hormone (TSH) 0.335L, Thyroxine (T4) 9.5 04/13/21 23:53: Urine Color YELLOW, Urine Appearance CLEAR, Urine pH 7.0, Urine Specific [place] 1.024, Urine Protein NEGATIVE, Urine Glucose (UA) NEGATIVE, Urine Ketones NEGATIVE, Urine Blood NEGATIVE, Urine Nitrite NEGATIVE, Urine Bilirubin NEGATIVE, Urine Urobilinogen 4.0H, Urine Leukocyte Esterase NEGATIVE, Urine WBC (Auto) 2, Urine RBC (Auto) 4H, Urine Hyaline Casts (Auto) 0, Urine Bacteria (Auto) NEGATIVE, Urine Squamous Epithelial Cells 6, Urine Sperm (Auto) CBC/BMP Laboratory Tests 04/13/21 19:20 Microbiology Microbiology 04/13/21 Blood Culture, Received Pending 04/13/21 Respiratory Virus Panel (PCR) (MICHELLE) - Final, Complete 04/13/21 Blood Culture, Received Pending Home Medications Scheduled Adalimumab (Humira) 40 Mg/0.8 Ml Kit, 40 MG SC Q2WK Cholecalciferol (Vitamin D3) (Vitamin D3) 1,000 Unit Tablet, 1,000 UNITS PO DAILY Iron,Carbonyl/Ascorbic Acid (Iron 100-Vitamin C Tablet) 1 Each Tablet, 1 TAB PO DAILY Magnesium Oxide (Magnesium Oxide) 400 Mg Tablet, 400 MG PO 1XWK Potassium Gluconate (Potassium) 600 Mg Tablet, 600 MG PO 1XWK Ropinirole HCl (Ropinirole HCl) 1 Mg Tablet, 1 MG PO BID TAKES AT NOON AND BEDTIME Scheduled PRN Furosemide (Furosemide) 20 Mg Tablet, 20 MG PO DAILY PRN for EDEMA Allergies Coded Allergies: Cephalosporins (Verified Allergy, Intermediate, CECLOR- RASH AND HIVES, 10/17/19) Sulfa (Sulfonamide Antibiotics) (Verified Allergy, Intermediate, RASH AND HIVES, 10/17/19) dicloxacillin (Verified Allergy, Intermediate, HIVES (ZOSYN GIVEN WITH NO ISSUE), 10/17/19) erythromycin base (Verified Allergy, Intermediate, RASH AND HIVES, 10/17/19) Quinolones (Verified Allergy, Unknown, 10/17/19) cefaclor (Verified Allergy, Unknown, 04/13/21) hydrocodone (Verified Allergy, Unknown, 10/17/19) A-FIB/CHADSVASC A-FIB History Current/History of A-Fib/PAF?: No SKYLER DAS Apr 14, 2021 01:46
[2021-04-14] MEDS ORDERED: KETOROLAC 30 MG/ML 1ML VIAL IV PRN (02:30)
[2021-04-14] MEDS: NS 1,000 ML IV SCH ×2 (06:17→15:28)
[2021-04-14 09:39] LABS: EOS % 0.6 % (0.0-3.0); LYMPH # 0.6 10^3/uL (1.5-5.0); LYMPH % 34.7 % (24.0-44.0); MEAN CORPUSCULAR HEMOGLOBIN 25.9 pg (27.0-33.0); MEAN CORPUSCULAR HGB CONC 30.3 g/dl (32.0-36.5); MEAN CORPUSCULAR VOLUME 85.5 fl (80.0-96.0); MONO # 0.5 10^3/uL (0.0-0.8); MONO % 30.1 % (2.0-8.0); PLATELET COUNT, AUTOMATED 107 10^3/uL (150-450); RED BLOOD COUNT 3.86 10^6/uL (4.00-5.40); WHITE BLOOD COUNT 1.8 10^3/uL (4.0-10.0)
[2021-04-14] MEDS: ACETAMINOPHEN TAB 650MG DOSE (2X325MG) PO PRN ×2 (09:47→13:42)
[2021-04-14] MEDS: ENOXAPARIN 40MG/0.4ML SYRINGE (J1650 PER 10MG) SC SCH (09:47)
[2021-04-14 10:05] LABS: NEUTROPHILS # 0.6 10^3/uL (1.5-8.5)
[2021-04-14 10:23] LABS: ALBUMIN 2.7 GM/DL (3.2-5.2); ALT/SGPT 29 U/L (12-78); BILIRUBIN,TOTAL 0.3 MG/DL (0.2-1.0); BLOOD UREA NITROGEN 16 MG/DL (7-18); CALCIUM LEVEL 7.2 MG/DL (8.8-10.2); CARBON DIOXIDE LEVEL 26 MEQ/L (21-32); CHLORIDE LEVEL 113 MEQ/L (98-107); CREATININE FOR GFR 0.73 MG/DL (0.55-1.30); GLOMERULAR FILTRATION RATE > 60.0 (>45); GLUCOSE, FASTING 71 MG/DL (70-100); MAGNESIUM LEVEL 2.2 MG/DL (1.8-2.4); POTASSIUM SERUM 4.1 MEQ/L (3.5-5.1); SODIUM LEVEL 144 MEQ/L (136-145); TOTAL PROTEIN 5.5 GM/DL (6.4-8.2)
[2021-04-14] MEDS: rOPINIRole 1MG TAB PO SCH ×2 (11:53→20:06)
[2021-04-14] MEDS: guaiFENesin SYRUP 200 MG/10 ML UDC PO PRN ×2 (13:42→20:06)
[2021-04-14 13:43] VITALS: BP 105/52
--- NOTE | 2021-04-14 15:09 | IPNPDOC ---
Text Note Date of Service The patient was seen on 04/14/21. NOTE Subjective: Patient stated that she contacted with her niece who was recently had mononucleosis. Objective: GENERAL APPEARANCE: Morbidly obese female HEENT: no scleral icterus, no JVD, EOMI CARDIOVASCULAR: S1S2 LUNGS: Diminished lung sounds bilaterally ABDOMEN: soft & not tender w palpation MUSCULOSKELETAL: no cyanosis, no swelling INTEGUMENT: no generalized pallor NEUROLOGICAL: cranial nerve function from 2-12 intact i, follows commands, speech not dysarthric Assessment and plan Patient is 65 years old female with past medical history of rheumatoid arthritis on chronic Humira, history of liver abscess, obstructive sleep apnea presented to hospital with fever, weakness and cough. Sepsis Patient developed leukopenia with fever and tachycardia Differential diagnosis includes infectious mononucleosis, tick-borne diseases, upper respiratory viral infection Await blood culture Patient chronically on the immunosuppressive therapy with Humira, Started doxycycline p.o. empirically to cover possible Lyme infection, however procalcitonin negative We will check CRP, sedimentation rate, HIV, LDH, BREA, cytomegalovirus infection, EBV IgM UA unremarkable CT chest negative for acute focal thoracic abnormalities CT abdomen showed No acute surgical or inflammatory intra-abdominal or pelvic process Hypertension Resolved Pancytopenia Can be attributed to tickborne infection, immunosuppressive therapy with Humira, myelosuppression due to chronic diseases Hypothyroidism We will continue to monitor after resolution of acute diseases Obstructive sleep apnea Patient was noncompliant to CPAP Rheumatoid arthritis Humira on hold VS,Fishbone, I+O VS, Fishbone, I+O Laboratory Tests 04/13/21 19:20 04/14/21 09:28 Vital Signs Date Time Temp Pulse Resp B/P (MAP) Pulse Ox O2 Delivery O2 Flow Rate FiO2 04/14/21 13:43 98.0 74 20 105/52 (69) 96 Room Air 04/14/21 13:18 2.0 LAKHWINDER CLARK DO Apr 14, 2021 15:09
[2021-04-14] MEDS: DOXYCYCLINE HYCLATE 100MG TABLET PO SCH ×2 (15:28→20:06)
[2021-04-14 16:04] LABS: MONO REFLEX EBV COMP NEGATIVE (NEGATIVE)
[2021-04-14 16:06] LABS: C REACTIVE PROTEIN QUANTITATIV 3.19 MG/DL (0.00-0.30)
[2021-04-14 16:58] LABS: HIV 1&2 SCREEN CENTAUR NEGATIVE (NEGATIVE)
[2021-04-14 17:34] VITALS: BP 106/54
[2021-04-14 22:00] VITALS: BP 123/75
[2021-04-15] MEDS: NS 1,000 ML IV SCH ×3 (01:00→20:24)
[2021-04-15 02:00] VITALS: BP 118/70
[2021-04-15] MEDS: ACETAMINOPHEN TAB 650MG DOSE (2X325MG) PO PRN ×2 (03:27→15:31)
[2021-04-15 06:00] VITALS: BP 123/69
[2021-04-15 06:37] LABS: HEMATOCRIT 31.4 % (36.0-47.0); HEMOGLOBIN 9.3 g/dl (12.0-15.5); MEAN CORPUSCULAR HEMOGLOBIN 25.4 pg (27.0-33.0); MEAN CORPUSCULAR HGB CONC 29.6 g/dl (32.0-36.5); MEAN CORPUSCULAR VOLUME 85.8 fl (80.0-96.0); PLATELET COUNT, AUTOMATED 105 10^3/uL (150-450); RED BLOOD COUNT 3.66 10^6/uL (4.00-5.40)
[2021-04-15 06:56] LABS: ALBUMIN 2.5 GM/DL (3.2-5.2); ALT/SGPT 24 U/L (12-78); BILIRUBIN,TOTAL 0.2 MG/DL (0.2-1.0); BLOOD UREA NITROGEN 10 MG/DL (7-18); CALCIUM LEVEL 7.4 MG/DL (8.8-10.2); CARBON DIOXIDE LEVEL 24 MEQ/L (21-32); CHLORIDE LEVEL 115 MEQ/L (98-107); CREATININE FOR GFR 0.53 MG/DL (0.55-1.30); GLOMERULAR FILTRATION RATE > 60.0 (>45); GLUCOSE, FASTING 79 MG/DL (70-100); MAGNESIUM LEVEL 2.1 MG/DL (1.8-2.4); SODIUM LEVEL 145 MEQ/L (136-145); TOTAL PROTEIN 5.3 GM/DL (6.4-8.2)
[2021-04-15 07:47] LABS: ANISOCYTOSIS 1+; ATYPICAL LYMPH 3 % (0-5); BASOPHILS 3 % (0-1); EOSINOPHILS 1 % (0-3); LYMPHOCYTES 64 % (16-44); MONOCYTES 9 % (0-5); NEUTROPHILS 20 % (28-66); PLATELET ESTIMATE DECREASED (NORMAL)
[2021-04-15 10:00] VITALS: BP 122/61
[2021-04-15] MEDS: DOXYCYCLINE HYCLATE 100MG TABLET PO SCH ×2 (10:18→20:25)
[2021-04-15] MEDS: ENOXAPARIN 40MG/0.4ML SYRINGE (J1650 PER 10MG) SC SCH (10:19)
[2021-04-15] MEDS: guaiFENesin SYRUP 200 MG/10 ML UDC PO PRN ×2 (10:19→16:12)
--- NOTE | 2021-04-15 12:44 | IPNPDOC ---
Text Note Date of Service The patient was seen on 04/15/21. NOTE Subjective: Patient patient complains of generalized weakness. No fever for past 24 hours. Patient continues to have intermittent dry cough Objective: GENERAL APPEARANCE: Morbidly obese female HEENT: no scleral icterus, no JVD, EOMI CARDIOVASCULAR: S1S2 LUNGS: Diminished lung sounds bilaterally ABDOMEN: soft & not tender w palpation MUSCULOSKELETAL: no cyanosis, no swelling INTEGUMENT: no generalized pallor NEUROLOGICAL: cranial nerve function from 2-12 intact i, follows commands, speech not dysarthric Assessment and plan Patient is 65 years old female with past medical history of rheumatoid arthritis on chronic Humira, history of liver abscess, obstructive sleep apnea presented to hospital with fever, weakness and cough. Sepsis Patient developed leukopenia with fever and tachycardia Differential diagnosis includes infectious mononucleosis, tick-borne diseases, upper respiratory viral infection Blood culture negative Patient chronically on the immunosuppressive therapy with Humira, continue doxycycline p.o. empirically to cover possible Lyme infection, however procalcitonin negative CRP rate increased to 3.1, sedimentation rate 32, HIV negative, LDH within normal limit, BREA pending, cytomegalovirus infection pending, EBV IgM negative UA unremarkable CT chest negative for acute focal thoracic abnormalities CT abdomen showed No acute surgical or inflammatory intra-abdominal or pelvic process Hypertension Resolved Pancytopenia Can be attributed to tickborne infection, immunosuppressive therapy with Humira, myelosuppression due to chronic diseases Hypothyroidism We will continue to monitor after resolution of acute diseases Obstructive sleep apnea Patient was noncompliant to CPAP Rheumatoid arthritis Humira on hold VS,Fishbone, I+O VS, Fishbone, I+O Laboratory Tests 04/15/21 06:06 Vital Signs Date Time Temp Pulse Resp B/P (MAP) Pulse Ox O2 Delivery O2 Flow Rate FiO2 04/15/21 10:00 98.2 72 18 122/61 (81) 96 Room Air 04/14/21 21:00 1.0 I&O- Last 24 Hours up to 6 AM 04/15/21 06:00 Intake Total 2400 ml Output Total 1025 ml Balance 1375 ml LAKHWINDER CLARK DO Apr 15, 2021 12:44
[2021-04-15] MEDS: rOPINIRole 1MG TAB PO SCH ×2 (13:10→20:26)
[2021-04-15 14:00] VITALS: BP 121/62
[2021-04-15 18:00] VITALS: BP 120/64
[2021-04-15 22:00] VITALS: BP 139/76
[2021-04-16] MEDS: ONDANSETRON 4 MG TAB PO PRN ×2 (00:05→10:28)
[2021-04-16 02:00] VITALS: BP_SYST 136; BP_DIAS 75; BP_DIAS 76
[2021-04-16 06:00] VITALS: BP 131/68
[2021-04-16] MEDS: ACETAMINOPHEN TAB 650MG DOSE (2X325MG) PO PRN (06:34)
[2021-04-16] MEDS: NS 1,000 ML IV SCH (06:34)
[2021-04-16 06:38] LABS: HEMATOCRIT 32.6 % (36.0-47.0); HEMOGLOBIN 9.9 g/dl (12.0-15.5); MEAN CORPUSCULAR HEMOGLOBIN 26.3 pg (27.0-33.0); MEAN CORPUSCULAR HGB CONC 30.4 g/dl (32.0-36.5); MEAN CORPUSCULAR VOLUME 86.5 fl (80.0-96.0); PLATELET COUNT, AUTOMATED 102 10^3/uL (150-450); RED BLOOD COUNT 3.77 10^6/uL (4.00-5.40); WHITE BLOOD COUNT 2.2 10^3/uL (4.0-10.0)
[2021-04-16 07:09] LABS: ALBUMIN 2.6 GM/DL (3.2-5.2); ALT/SGPT 23 U/L (12-78); BILIRUBIN,TOTAL 0.2 MG/DL (0.2-1.0); BLOOD UREA NITROGEN 7 MG/DL (7-18); CALCIUM LEVEL 7.4 MG/DL (8.8-10.2); CARBON DIOXIDE LEVEL 28 MEQ/L (21-32); CHLORIDE LEVEL 113 MEQ/L (98-107); GLOMERULAR FILTRATION RATE > 60.0 (>45); GLUCOSE, FASTING 82 MG/DL (70-100); POTASSIUM SERUM 3.9 MEQ/L (3.5-5.1); SODIUM LEVEL 144 MEQ/L (136-145); TOTAL PROTEIN 5.2 GM/DL (6.4-8.2)
[2021-04-16 07:32] LABS: ANISOCYTOSIS 1+; ATYPICAL LYMPH 2 % (0-5); BASOPHILS 1 % (0-1); EOSINOPHILS 5 % (0-3); LYMPHOCYTES 50 % (16-44); MONOCYTES 12 % (0-5); NEUTROPHILS 30 % (28-66); PLATELET ESTIMATE DECREASED (NORMAL)
[2021-04-16 08:55] VITALS: BP 148/65
[2021-04-16] MEDS: DOXYCYCLINE HYCLATE 100MG TABLET PO SCH (09:11)
[2021-04-16] MEDS: ENOXAPARIN 40MG/0.4ML SYRINGE (J1650 PER 10MG) SC SCH (09:11)
[2021-04-16 10:00] VITALS: BP 148/70
[2021-04-16] MEDS ORDERED: DOXY100T PO (10:01)
[2021-04-16] MEDS ORDERED: ZOFR4TAB16 PO (10:29)
[2021-04-16 13:08] LABS: ANTINUCLEAR ANTIBODIES DIRECT Negative (Negative); CYTOMEGALOVIRUS IgM ANTIBODY <30.0 AU/mL (0.0-29.9)
[2021-04-16 14:09] LABS: EBV VIRAL CAPSID AG IgG >600.0 U/mL (0.0-17.9); EBV VIRAL CAPSID AG IgM <36.0 U/mL (0.0-35.9)
--- NOTE | 2021-04-16 15:54 | DS.PDOC ---
Discharge Summary General Date of Admission Apr 13, 2021 at 17:43 Date of Discharge 04/16/21 Discharge Summary PROCEDURES PERFORMED DURING STAY: [None]. ADMITTING DIAGNOSES: SIRS Hypertension Pancytopenia Hypothyroidism Obstructive sleep apnea Fever Rheumatoid arthritis DISCHARGE DIAGNOSES: SIRS Hypertension Pancytopenia Hypothyroidism Obstructive sleep apnea Fever Rheumatoid arthritis COMPLICATIONS/CHIEF COMPLAINT: Fever Pf Unkown [place]. HISTORY OF PRESENT ILLNESS: Mrs. Linda is a 65-year-old female who presented to the ER with complaints of fever and chills along with cough and general malaise. She states she started with a cough about 10 days ago. On Tuesday she started with significant chilling. She took her temperature at home and it was higher than 102 intermittently. She describes sitting out in the sun today with a lady on and a blanket trying to get warm. She said it feels like it did last year when she had developed liver abscesses. Of note, she did have both doses of Moderna Covid vaccine. She said she has had a headache but denies nausea, vomiting or diarrhea. On initial evaluation this evening her temperature was 103. She was hypotensive with blood pressure 94/55. She was given IV fluids, Tylenol and Toradol. She was also ordered to have a dose of Primaxin. Chest x- ray and CT of the chest, abdomen and pelvis were unremarkable. UA is negative. Respiratory viral panel was also negative. White blood cell count was decreased at 3.4 with neutrophils at 77. BUN/creatinine were within normal limits. LFTs were not elevated. TSH was noted to be below normal at 0.335, but T4 was 9.5. C- reactive protein showed some elevation at 0.59. Lactic acid is normal. HOSPITAL COURSE: During the hospital stay the following issue addressed Sepsis Patient developed leukopenia with fever and tachycardia Differential diagnosis includes infectious mononucleosis, tick-borne diseases, upper respiratory viral infection Blood culture negative Patient chronically on the immunosuppressive therapy with Humira, continue doxycycline p.o. empirically to cover possible Lyme infection, however procalcitonin negative CRP rate increased to 3.1, sedimentation rate 32, HIV negative, LDH within normal limit, BREA negative, cytomegalovirus infection pending, EBV IgM negative, Monospot test negative UA unremarkable CT chest negative for acute focal thoracic abnormalities CT abdomen showed No acute surgical or inflammatory intra-abdominal or pelvic process Hypertension Resolved Pancytopenia Can be attributed to tickborne infection, immunosuppressive therapy with Humira, myelosuppression due to chronic diseases Hypothyroidism We will continue to monitor after resolution of acute diseases Obstructive sleep apnea Patient was noncompliant to CPAP Rheumatoid arthritis Humira on hold DISCHARGE MEDICATIONS: Please see below. ALLERGIES: Please see below. PHYSICAL EXAMINATION ON DISCHARGE: VITAL SIGNS: Please see below. GENERAL APPEARANCE: Morbidly obese female HEENT: no scleral icterus, no JVD, EOMI CARDIOVASCULAR: S1S2 LUNGS: Diminished lung sounds bilaterally ABDOMEN: soft & not tender w palpation MUSCULOSKELETAL: no cyanosis, no swelling INTEGUMENT: no generalized pallor NEUROLOGICAL: cranial nerve function from 2-12 intact i, follows commands, speech not dysarthric LABORATORY DATA: Please see below. PROGNOSIS: Fair ACTIVITY: [As tolerated]. DIET: Cardiac DISPOSITION: Home, Self-Care. ITEMS TO FOLLOWUP ON ON OUTPATIENT: Follow-up with PCP in 3 to 4 days DISCHARGE CONDITION: [Stable]. TIME SPENT ON DISCHARGE: 40 minutes. Vital Signs/I&Os Vital Signs Date Time Temp Pulse Resp B/P (MAP) Pulse Ox O2 Delivery O2 Flow Rate FiO2 04/16/21 10:00 96.9 72 18 148/70 (96) 92 04/16/21 06:00 Room Air 04/16/21 02:00 1.0 I&O- Last 24 Hours up to 6 AM 04/16/21 06:00 Intake Total 760 ml Output Total 2700 ml Balance -1940 ml Laboratory Data Labs 24H Laboratory Tests 2 04/16/21 06:19: Neutrophils (%) (Auto) , Neutrophils # (Auto) , Nucleated Red Blood Cells % (auto) 0.0, Neutrophils 30, Lymphocytes (Manual) 50H, Monocytes (Manual) 12H, Eosinophils (Manual) 5H, Basophils (Manual) 1, Atypical Lymphocytes 2, Anisocytosis 1+, Platelet Estimate DECREASED, Anion Gap 3L, Glomerular Filtration Rate > 60.0, Calcium Level 7.4L, Total Bilirubin 0.2, Aspartate Amino Transf (AST/SGOT) 23, Alanine Aminotransferase (ALT/SGPT) 23, Alkaline Phosphatase 44L, Total Protein 5.2L, Albumin 2.6L, Albumin/Globulin Ratio 1.0L CBC/BMP Laboratory Tests 04/16/21 06:19 Microbiology Microbiology 04/13/21 Blood Culture - Preliminary, Resulted No Growth after 48 hours. All Specime... 04/13/21 Respiratory Virus Panel (PCR) (MICHELLE) - Final, Complete 04/13/21 Blood Culture - Preliminary, Resulted No Growth after 48 hours. All Specime... Discharge Medications Scheduled Adalimumab (Humira) 40 Mg/0.8 Ml Kit, 40 MG SC Q2WK, (Reported) Cholecalciferol (Vitamin D3) (Vitamin D3) 1,000 Unit Tablet, 1,000 UNITS PO DAILY, (Reported) Doxycycline Hyclate (Doxycycline Hyclate) 100 Mg Tablet, 100 MG PO BID Iron,Carbonyl/Ascorbic Acid (Iron 100-Vitamin C Tablet) 1 Each Tablet, 1 TAB PO DAILY, (Reported) Ropinirole HCl (Ropinirole HCl) 1 Mg Tablet, 1 MG PO BID, (Reported) TAKES AT NOON AND BEDTIME Scheduled PRN Furosemide (Furosemide) 20 Mg Tablet, 20 MG PO DAILY PRN for EDEMA, (Reported) Magnesium Oxide (Magnesium Oxide) 400 Mg Tablet, 400 MG PO DAILY PRN for LEG CRAMPS, (Reported) Ondansetron HCl (Zofran) 4 Mg Tablet, 1 TAB PO Q6H PRN for NAUSEA Potassium Gluconate (Potassium) 600 Mg Tablet, 600 MG PO DAILY PRN for LEG CR AMPS, (Reported) Allergies Coded Allergies: Cephalosporins (Verified Allergy, Intermediate, CECLOR- RASH AND HIVES, 10/17/19) Sulfa (Sulfonamide Antibiotics) (Verified Allergy, Intermediate, RASH AND HIVES, 10/17/19) dicloxacillin (Verified Allergy, Intermediate, HIVES (ZOSYN GIVEN WITH NO ISSUE), 10/17/19) erythromycin base (Verified Allergy, Intermediate, RASH AND HIVES, 10/17/19) Quinolones (Verified Allergy, Unknown, 10/17/19) cefaclor (Verified Allergy, Unknown, 04/13/21) hydrocodone (Verified Allergy, Unknown, 10/17/19) LAKHWINDER CLARK DO Apr 16, 2021 15:54
[2021-04-20 00:07] LABS: BABESIA MICROTI PCR Negative (Negative); Lyme Disease IgG/IgM Antibodie <0.91 ISR (0.00-0.90); Lyme Disease IgM Ab Quantitati <0.80 index (0.00-0.79)
== END 2021-04-16 11:23 | disposition home or self-care (01) ==
LOC: M ED 17:42 → M ED INP 17:43 → ENRESERV 04-14 12:45 → M MSPAV 04-14 13:30
PROVIDERS: ADMIT Internal Medicine; ATTEND Internal Medicine
DX: R50.9 Fever, unspecified (principal); R65.10 Systemic inflammatory response syndrome (SIRS) of non-infectious origin without acute organ dysfunction; I10 Essential (primary) hypertension; D61.818 Other pancytopenia; E03.9 Hypothyroidism, unspecified; G47.33 Obstructive sleep apnea (adult) (pediatric); M06.9 Rheumatoid arthritis, unspecified; G25.81 Restless legs syndrome; Z98.84 Bariatric surgery status; Z88.1 Allergy status to other antibiotic agents; Z88.2 Allergy status to sulfonamides; Z88.5 Allergy status to narcotic agent
CPT/HCPCS: 36415; 71045; 71260; 74177; 80048; 80053; 80076; 81001; 82550; 82553; 82803; 83605; 83615; 83735; 83880; 84145; 84436; 84443; 84484; 85025; 85652; 86038; 86140; 86308; 86617; 86645; 86664; 86665; 87040; 87389; 87798; 93005; 93041; 96361; 96365; 96372; 96375; 99285; G0378; J0743; J1650; J1885; Q9967

== ENCOUNTER → 2021-04-20 | Outpatient (CLI) | payer MEDICARE ==
[~2021-04-20] MED LIST changes: +D31000TA2 PO; +DOXY100T PO; +FURO20TA2; +FURO20TA2 PO; +IRON100T PO; +MAGN400T2 PO; +POTA595T16 PO; +ZOFR4TAB16 PO
[2021-04-20 14:22] LABS: BASO % 0.4 % (0.0-1.0); EOS # 0.1 10^3/uL (0.0-0.5); EOS % 1.8 % (0.0-3.0); HEMATOCRIT 35.9 % (36.0-47.0); HEMOGLOBIN 10.6 g/dl (12.0-15.5); LYMPH # 2.2 10^3/uL (1.5-5.0); MEAN CORPUSCULAR HEMOGLOBIN 25.3 pg (27.0-33.0); MEAN CORPUSCULAR HGB CONC 29.5 g/dl (32.0-36.5); MEAN CORPUSCULAR VOLUME 85.7 fl (80.0-96.0); MONO # 0.5 10^3/uL (0.0-0.8); MONO % 9.6 % (2.0-8.0); NEUTROPHILS # 2.5 10^3/uL (1.5-8.5); NEUTROPHILS % 46.6 % (36.0-66.0); PLATELET COUNT, AUTOMATED 187 10^3/uL (150-450); RED BLOOD COUNT 4.19 10^6/uL (4.00-5.40); WHITE BLOOD COUNT 5.4 10^3/uL (4.0-10.0)
[2021-04-20 14:51] LABS: ALBUMIN 3.2 GM/DL (3.2-5.2); ALT/SGPT 28 U/L (12-78); BILIRUBIN,TOTAL 0.5 MG/DL (0.2-1.0); BLOOD UREA NITROGEN 10 MG/DL (7-18); CALCIUM LEVEL 8.4 MG/DL (8.8-10.2); CARBON DIOXIDE LEVEL 33 MEQ/L (21-32); CHLORIDE LEVEL 108 MEQ/L (98-107); CREATININE FOR GFR 0.64 MG/DL (0.55-1.30); GLOMERULAR FILTRATION RATE > 60.0 (>45); GLUCOSE, FASTING 83 MG/DL (70-100); SODIUM LEVEL 144 MEQ/L (136-145); TOTAL PROTEIN 6.8 GM/DL (6.4-8.2)
[2021-04-20 15:27] LABS: ERYTHROCYTE SEDIMENTATION RATE 43 mm/hr (0-30)
[2021-04-21 23:27] LABS: ANTI PARVO VIRUS LEVEL IGG 9.1 index (0.0-0.8); ANTI PARVO VIRUS LEVEL IgM 16.1 index (0.0-0.8); L. PNEUMOPHILA (1,3,4,5,6,8) <0.91 OD ratio (0.00-0.90)
== END ==
LOC: M PLALAB 11:54
PROVIDERS: ATTEND Internal Medicine Infectious Disease
DX: R05 Cough (principal); D61.818 Other pancytopenia

== ENCOUNTER → 2021-04-21 | Outpatient (REF) | payer MEDICARE | LOC: M LAB REF 09:59 | PROVIDERS: ATTEND Internal Medicine Infectious Disease | DX: R05 Cough (principal); R19.7 Diarrhea, unspecified; D61.818 Other pancytopenia ==

== ENCOUNTER → 2021-07-27 | Outpatient (REF) | payer MEDICARE ==
[~2021-07-27] MED LIST changes: -MAGN400T3 PO; +MAGN400T33 PO
[2021-07-27 19:13] LABS: C REACTIVE PROTEIN QUANTITATIV 0.43 MG/DL (0.00-0.30); PERCENT SATURATION 5.1 % (13.2-45.0)
[2021-07-27 19:22] LABS: FOLATE 10.9 NG/ML
== END ==
LOC: M LAB REF 16:22
PROVIDERS: ATTEND Internal Medicine
DX: R61 Generalized hyperhidrosis (principal); Z98.84 Bariatric surgery status

== ENCOUNTER → 2021-08-13 | Outpatient (CLI) | payer MEDICARE ==
[2021-08-13 17:23] LABS: BASO # 0.1 10^3/uL (0.0-0.2); BASO % 0.6 % (0.0-1.0); EOS # 0.3 10^3/uL (0.0-0.5); EOS % 3.5 % (0.0-3.0); HEMATOCRIT 39.2 % (36.0-47.0); HEMOGLOBIN 11.4 g/dl (12.0-15.5); LYMPH # 2.7 10^3/uL (1.5-5.0); LYMPH % 33.7 % (24.0-44.0); MEAN CORPUSCULAR HEMOGLOBIN 24.2 pg (27.0-33.0); MEAN CORPUSCULAR HGB CONC 29.1 g/dl (32.0-36.5); MEAN CORPUSCULAR VOLUME 83.2 fl (80.0-96.0); MONO # 0.7 10^3/uL (0.0-0.8); MONO % 9.1 % (2.0-8.0); NEUTROPHILS # 4.2 10^3/uL (1.5-8.5); NEUTROPHILS % 52.5 % (36.0-66.0); PLATELET COUNT, AUTOMATED 273 10^3/uL (150-450); RED BLOOD COUNT 4.71 10^6/uL (4.00-5.40); WHITE BLOOD COUNT 7.9 10^3/uL (4.0-10.0)
--- NOTE | 2021-08-13 17:52 | REP ---
INDICATION: CHRONIC COUGH COMPARISON: 04/13/2021 TECHNIQUE: PA and lateral. FINDINGS: The mediastinum and cardiac silhouette are stable/normal. Chronic elevation to the right hemidiaphragm again noted. The lung huang are clear and without acute consolidation, effusion, or pneumothorax. The skeletal structures are intact and normal. IMPRESSION: No acute cardiopulmonary process. <Electronically signed by Mello John > 08/13/21 [id number]
[2021-08-13 18:35] LABS: ERYTHROCYTE SEDIMENTATION RATE 49 mm/hr (0-30)
== END ==
LOC: M RAD 16:31
PROVIDERS: ATTEND Internal Medicine Infectious Disease
DX: R05.3 Chronic cough (principal); Z79.899 Other long term (current) drug therapy

== ENCOUNTER 2024-01-30 09:12 | Day surgery (SDC) | payer MEDICARE ==
[~2024-01-30] VITALS: Ht 160 cm; Wt 114.3 kg
[~2024-01-30 09:12] MED LIST changes: +ARTIDRO4 OU; -D31000TA2 PO; +OMEP40CA5 PO; -ROPI0.5T3 PO; +ROPI0.5T33 PO; -ROPI1TAB3 PO; +ROPI1TAB73 PO; +VITA100093 PO
[2024-01-30] MEDS: NS 1,000 ML IV ONE (09:43)
[2024-01-30] MEDS ORDERED: propofoL 200 MG/20 ML VIAL As Ordered ONE (10:59)
[2024-01-30 11:48] VITALS: TEMP 97.2
[2024-01-30 12:06] VITALS: BP 131/61; O2SAT 96
== END 2024-01-30 12:12 | disposition home or self-care (01) ==
LOC: M OPP 09:12
PROVIDERS: ATTEND Internal Medicine Gastroenterology
DX: Z12.11 Encounter for screening for malignant neoplasm of colon (principal); D12.0 Benign neoplasm of cecum; D12.3 Benign neoplasm of transverse colon; K57.30 Diverticulosis of large intestine without perforation or abscess without bleeding; K64.0 First degree hemorrhoids; K21.9 Gastro-esophageal reflux disease without esophagitis; Z98.84 Bariatric surgery status; Z90.49 Acquired absence of other specified parts of digestive tract; Z80.0 Family history of malignant neoplasm of digestive organs; Z79.899 Other long term (current) drug therapy; Z88.5 Allergy status to narcotic agent; Z88.2 Allergy status to sulfonamides; Z88.1 Allergy status to other antibiotic agents; Z88.0 Allergy status to penicillin